=== PATIENT | female | born 1960 | race Two or more races ===

== ENCOUNTER 2021-03-19 15:17 | Inpatient (IN) | payer MEDICAID ==
[~2021-03-19] VITALS: Ht 162.6 cm; Wt 70.0 kg
[2021-03-19] MEDS ORDERED: ONDANSETRON HCL 4 MG/2 ML VIAL IV ONE (15:30)
[2021-03-19] MEDS ORDERED: MORPHINE SULFATE INJECTION 2 MG/2 ML SYRG IV ONE (15:30)
[2021-03-19 16:29] LABS: Basophils # (auto) 0 10 ^3/uL (0-0.2); Basophils % (auto) 0.5 % (0.0-2.0); Eosinophils # (auto) 0.1 10 ^3/uL (0-0.8); Eosinophils % (auto) 0.9 % (0.0-7.0); Hematocrit 45.2 % (36.0-46.0); Hemoglobin 15.4 g/dL (12.2-16.2); Lymphocytes # (auto) 1.6 10 ^3/uL (0.4-5.4); Lymphocytes % (auto) 21.3 % (10.0-50.0); Mean Corpuscular Hemoglobin 31.4 pg (28.0-32.0); Mean Corpuscular Hgb Conc. 34.2 g/dL (32.0-36.0); Mean Corpuscular Volume 91.9 fL (80.0-100.0); Monocytes # (auto) 0.5 10 ^3/uL (0-1.3); Monocytes % (auto) 6.1 % (0.0-12.0); Neutrophils # (auto) 5.4 10 ^3/uL (1.6-8.6); Neutrophils % (auto) 71.2 % (37.0-80.0); Nucleated Red Blood Cells % 0.1 %; Red Blood Cells 4.91 10^6/uL (4.0-5.20); Red Cell Distribution Width 13.8 % (11.8-14.3); White Blood Cell 7.6 10^3/uL (4.4-10.8)
[2021-03-19 16:56] LABS: Alanine Aminotransferase 59 U/L (13-56); Albumin 3.3 g/dL (3.4-5.0); Anion Gap 6 (5-15); Blood Urea Nitrogen 11 mg/dL (7-18); Calcium 8.4 mg/dL (8.5-10.1); Carbon Dioxide 24 mmol/L (21-32); Chloride 107 mmol/L (98-107); Glucose 250 mg/dL (74-106); Magnesium 2.3 mg/dL (1.6-2.6); Potassium 4.1 mmol/L (3.5-5.1); Sodium 137 mmol/L (136-145)
[2021-03-19 17:00] LABS: Alkaline Phosphatase 116 U/L (45-117); Aspartate Aminotransferase 33 U/L (15-37); BUN/Creatinine Ratio 19.3; Bilirubin, Total 0.5 mg/dL (0.2-1.0); GFR African American 139 mL/min; GFR Non-African American 115 mL/min; Total Protein 7.4 g/dL (6.4-8.2)
[2021-03-19] MEDS ORDERED: MORPHINE SULFATE INJECTION 2 MG/2 ML SYRG IV PRN ×3 (20:30→21:15)
[2021-03-19] MEDS ORDERED: ENOXAPARIN SOD 40 MG/0.4 ML SYRINGE SC ONE (20:30)
[2021-03-19] MEDS ORDERED: DEXTROSE (50%) 50ML SYRG IV PRN (20:30)
[2021-03-19] MEDS ORDERED: NITROGLYCERIN 0.4 MG SL TAB SL PRN ×2 (20:30→21:15)
[2021-03-19] MEDS ORDERED: SODIUM CHLORIDE 0.9% 1,000 ML IV SCH (21:15)
[2021-03-19] MEDS ORDERED: hydrALAZINE HCL 20 MG/ML VL IV PRN (21:15)
[2021-03-19] MEDS ORDERED: ATORVASTATIN 20 MG TAB PO ONE (21:15)
[2021-03-19] MEDS ORDERED: ONDANSETRON HCL 4 MG/2 ML VIAL IV PRN (21:15)
[2021-03-19] MEDS ORDERED: METOPROLOL SUCCINATE XL 50 MG TAB PO ONE (21:15)
[2021-03-19] MEDS ORDERED: LORazepam 0.5 MG TAB PO PRN (21:15)
[2021-03-19] MEDS ORDERED: FAMOTIDINE (10MG/ML) 2ML VL IV ONE (21:15)
[2021-03-19] MEDS ORDERED: ALUM & MAG HYDROX-SIMETH LIQ(MAALOX) 30 ML PO PRN (21:15)
[2021-03-19] MEDS ORDERED: DOCUSATE SOD 100 MG CAP PO PRN (21:15)
[2021-03-19] MEDS: ACCU-CHEK COMFORT CURVE STRIP VI SCH (22:00)
[2021-03-19] MEDS: InsuLIN REG 1unit/0.01ml Soln (100units/ml) SC SCH (22:00)
[2021-03-20] MEDS: ACCU-CHEK COMFORT CURVE STRIP VI SCH ×4 (07:11→23:43)
[2021-03-20] MEDS: InsuLIN REG 1unit/0.01ml Soln (100units/ml) SC SCH ×4 (07:12→23:42)
[2021-03-20] MEDS ORDERED: ENOXAPARIN SOD 40 MG/0.4 ML SYRINGE SC SCH (10:00)
[2021-03-20] MEDS: FAMOTIDINE (10MG/ML) 2ML VL IV SCH ×2 (11:33→23:40)
[2021-03-20] MEDS: ASPirin 81 mg TAB PO SCH (11:33)
[2021-03-20] MEDS: HYDROcodone-ACET 5/325MG TAB PO PRN (15:00)
[2021-03-20 23:38] VITALS: BP 128/63
[2021-03-20] MEDS: ATORVASTATIN 20 MG TAB PO SCH (23:40)
[2021-03-20] MEDS: METOPROLOL TARTRATE 25 MG TAB PO SCH (23:41)
[2021-03-20] MEDS: ENOXAPARIN SOD 40 MG/0.4 ML SYRINGE SC SCH (23:43)
[2021-03-21] MEDS: ACETAMINOPHEN 325 MG TAB PO PRN ×2 (01:15→17:04)
[2021-03-21] MEDS ORDERED: ATEN-60 PO (04:59)
[2021-03-21] MEDS ORDERED: GABA300C10 PO (04:59)
[2021-03-21] MEDS ORDERED: ENAL2.5T7 PO (04:59)
[2021-03-21] MEDS ORDERED: ASPI-543 PO (04:59)
[2021-03-21] MEDS ORDERED: LOSA-69 PO (04:59)
[2021-03-21 05:00] VITALS: BP 134/79
[2021-03-21] MEDS: ACCU-CHEK COMFORT CURVE STRIP VI SCH ×4 (06:24→22:51)
[2021-03-21] MEDS: InsuLIN REG 1unit/0.01ml Soln (100units/ml) SC SCH ×4 (06:30→22:52)
[2021-03-21 08:27] LABS: Anion Gap 3 (5-15); Blood Urea Nitrogen 14 mg/dL (7-18); Calcium 8.4 mg/dL (8.5-10.1); Carbon Dioxide 30 mmol/L (21-32); Chloride 106 mmol/L (98-107); Glucose 144 mg/dL (74-106); Potassium 3.9 mmol/L (3.5-5.1); Sodium 139 mmol/L (136-145)
[2021-03-21 08:33] LABS: Cholesterol 165 mg/dL (< 200); GFR African American 142 mL/min; GFR Non-African American 117 mL/min; HDL Cholesterol 40 mg/dL (40-59); LDL Cholesterol 111 mg/dL (< 100); Triglycerides 151 mg/dL (< 150)
[2021-03-21 09:00] VITALS: BP 129/60
[2021-03-21] MEDS: ASPirin 81 mg TAB PO SCH (09:28)
[2021-03-21] MEDS: FAMOTIDINE (10MG/ML) 2ML VL IV SCH ×2 (09:28→22:50)
[2021-03-21] MEDS: METOPROLOL TARTRATE 25 MG TAB PO SCH ×2 (09:29→22:00)
[2021-03-21 12:59] VITALS: BP 130/92
[2021-03-21 13:39] LABS: Amylase 63 U/L (25-115); Lipase 33 U/L (73-393)
[2021-03-21 17:38] VITALS: BP 144/83
[2021-03-21 22:00] VITALS: BP 133/64
[2021-03-21] MEDS: ATORVASTATIN 20 MG TAB PO SCH (22:50)
[2021-03-21] MEDS: ENOXAPARIN SOD 40 MG/0.4 ML SYRINGE SC SCH (22:51)
[2021-03-22 05:00] VITALS: BP 132/72
[2021-03-22] MEDS: ACCU-CHEK COMFORT CURVE STRIP VI SCH ×2 (07:14→11:30)
[2021-03-22] MEDS: InsuLIN REG 1unit/0.01ml Soln (100units/ml) SC SCH ×2 (07:15→11:30)
[2021-03-22] MEDS: HYDROcodone-ACET 5/325MG TAB PO PRN (07:21)
[2021-03-22 09:00] VITALS: BP 131/98
[2021-03-22] MEDS: ASPirin 81 mg TAB PO SCH (10:45)
[2021-03-22] MEDS: FAMOTIDINE (10MG/ML) 2ML VL IV SCH (10:45)
[2021-03-22] MEDS: METOPROLOL TARTRATE 25 MG TAB PO SCH (10:46)
[2021-03-22 11:31] VITALS: BP 131/98
[2021-03-22 12:45] VITALS: BP 121/69
== END 2021-03-22 13:30 | disposition home or self-care (01) | DRG 198 ==
LOC: ER 15:17 → EDBD 15:17 → TELE 20:19 → TELE-WESTW 23:44
PROVIDERS: ADMIT Hospitalist; ATTEND Internal Medicine
DX: R07.89 Other chest pain (principal); I25.10 Atherosclerotic heart disease of native coronary artery without angina pectoris; I50.33 Acute on chronic diastolic (congestive) heart failure; I11.0 Hypertensive heart disease with heart failure; E11.65 Type 2 diabetes mellitus with hyperglycemia; E66.3 Overweight; E78.5 Hyperlipidemia, unspecified; Z20.822 Contact with and (suspected) exposure to COVID-19; Z82.49 Family history of ischemic heart disease and other diseases of the circulatory system; Z88.8 Allergy status to other drugs, medicaments and biological substances; Z88.6 Allergy status to analgesic agent; Z90.710 Acquired absence of both cervix and uterus; Z68.26 Body mass index [BMI] 26.0-26.9, adult
CPT/HCPCS: 36415; 71045; 74176; 80048; 80053; 80061; 82150; 82962; 83036; 83690; 83735; 83880; 84484; 85025; 85379; 87040; 87426; 93005; 93306; 96372; 96374; 96375; G0378; J1815; J2405; J3490

== ENCOUNTER 2022-03-22 04:35 | Inpatient (IN) | payer MEDICAID ==
[~2022-03-22] VITALS: Ht 152.4 cm; Wt 65.9 kg
[~2022-03-22 04:35] MED LIST: ASPI-543 PO; ATEN-60 PO; ENAL2.5T7 PO; GABA300C10 PO; LOSA-69 PO
[2022-03-22] MEDS ORDERED: dilTIAZem 25 MG/5 ML VIAL IV ONE (04:45)
[2022-03-22] MEDS ORDERED: ASPirin 325 MG TAB PO ONE (05:15)
[2022-03-22] MEDS: dilTIAZem 125mg/125ml BAG KIT 100 ML IV SCH (05:25)
[2022-03-22 05:57] LABS: Basophils # (auto) 0 10 ^3/uL (0-0.2); Basophils % (auto) 0.3 % (0.0-2.0); Eosinophils # (auto) 0.1 10 ^3/uL (0-0.8); Eosinophils % (auto) 0.7 % (0.0-7.0); Hemoglobin 13.2 g/dL (12.2-16.2); Lymphocytes # (auto) 1.5 10 ^3/uL (0.4-5.4); Lymphocytes % (auto) 18.3 % (10.0-50.0); Mean Corpuscular Hemoglobin 30.8 pg (28.0-32.0); Mean Corpuscular Hgb Conc. 33.1 g/dL (32.0-36.0); Mean Corpuscular Volume 93.1 fL (80.0-100.0); Monocytes # (auto) 0.6 10 ^3/uL (0-1.3); Neutrophils # (auto) 6.1 10 ^3/uL (1.6-8.6); Neutrophils % (auto) 73.7 % (37.0-80.0); Red Blood Cells 4.29 10^6/uL (4.0-5.20); Red Cell Distribution Width 13.4 % (11.8-14.3); White Blood Cell 8.2 10^3/uL (4.4-10.8)
[2022-03-22 06:03] LABS: Calcium 7.9 mg/dL (8.5-10.1)
[2022-03-22 06:06] LABS: Albumin 3.3 g/dL (3.4-5.0); BUN/Creatinine Ratio 20.4; Total Protein 6.5 g/dL (6.4-8.2)
[2022-03-22 06:08] LABS: Bilirubin, Total 0.4 mg/dL (0.2-1.0)
[2022-03-22 06:11] LABS: Potassium 2.8 mmol/L (3.5-5.1)
[2022-03-22] MEDS ORDERED: POTASSIUM CHL 20 Meq TABLET PO ONE (06:45)
[2022-03-22 08:25] LABS: Urine Bacteria NONE SEEN /hpf (None Seen); Urine Blood Negative /uL (Negative); Urine Mucus FEW (None Seen); Urine Specific Gravity 1.034 (1.001-1.035); Urine WBC 10 /hpf (0 - 5)
[2022-03-22] MEDS: SODIUM CHLORIDE 0.9% 1,000 ML IV SCH ×2 (09:45→23:16)
[2022-03-22] MEDS ORDERED: NITROGLYCERIN 0.4 MG SL TAB SL PRN (09:45)
[2022-03-22] MEDS ORDERED: DEXTROSE (50%) 50ML SYRG IV PRN (09:45)
[2022-03-22] MEDS ORDERED: ENOXAPARIN SOD 60 MG/0.6 ML SYRINGE SC ONE (09:45)
[2022-03-22] MEDS ORDERED: POTASSIUM CHL 20MEQ/100ML 100 ML IV ONE (09:45)
[2022-03-22] MEDS ORDERED: MAGNESIUM SULFATE 1GM/100ML 100 ML IV ONE (09:45)
[2022-03-22] MEDS ORDERED: MORPHINE SULFATE INJ 2 MG/ml SYRG IV PRN (09:45)
[2022-03-22] MEDS ORDERED: SODIUM CHLORIDE 0.9% 1,000 ML IV ONE (09:45)
[2022-03-22] MEDS: ASPirin-EC 81 mg tab PO SCH (10:00)
[2022-03-22] MEDS ORDERED: hydrALAZINE HCL 20 MG/ML VL IV PRN (10:00)
[2022-03-22] MEDS ORDERED: cefTRIAXone 1GM/50ML D5W 50 ML IV ONE (10:15)
[2022-03-22 10:23] LABS: Cholesterol 172 mg/dL (< 200); HDL Cholesterol 44 mg/dL (40-59); LDL Cholesterol 113 mg/dL (< 100); Triglycerides 207 mg/dL (< 150)
[2022-03-22] MEDS: GABAPENTIN 300 MG CAP PO SCH ×2 (10:33→22:12)
[2022-03-22] MEDS: ATENOLOL 25 MG TAB PO SCH (10:34)
[2022-03-22] MEDS ORDERED: ACETAMINOPHEN 500 MG TAB PO ONE (11:00)
[2022-03-22 11:21] LABS: INR 1.01 (0.9-1.15)
[2022-03-22] MEDS: ACCU-CHEK COMFORT CURVE STRIP VI SCH ×3 (11:30→22:17)
[2022-03-22] MEDS: InsuLIN REG 1unit/0.01ml Soln (100units/ml) SC SCH ×3 (12:16→22:21)
[2022-03-22] MEDS ORDERED: PANTOPRAZOLE 40 MG/10 ML VIAL INJ IV ONE (13:30)
[2022-03-22 13:53] LABS: Alcohol, Urine < 3.0 mg/dL (0-10); Amphetamine Screen, Urine NEGATIVE (NEGATIVE); Barbiturate Scree,Urine NEGATIVE (NEGATIVE); Benzodiazephine Screen, Urine NEGATIVE (NEGATIVE); Cannabinoid Screen, Urine NEGATIVE (NEGATIVE); Cocaine Screen, Urine NEGATIVE (NEGATIVE); Opiate Scree,Urine POSITIVE (NEGATIVE); Phencyclidine Screen, Urine NEGATIVE (NEGATIVE)
[2022-03-22] MEDS ORDERED: RIVAROXABAN 20 MG TAB PO SCH (18:00)
[2022-03-22 18:47] LABS: BUN/Creatinine Ratio 17.7; Potassium 4.5 mmol/L (3.5-5.1)
[2022-03-23] MEDS: dilTIAZem 125mg/125ml BAG KIT 100 ML IV SCH (01:15)
[2022-03-23 05:50] VITALS: BP 130/77
[2022-03-23 06:00] VITALS: BP 130/77
[2022-03-23] MEDS: ACCU-CHEK COMFORT CURVE STRIP VI SCH ×2 (06:56→12:00)
[2022-03-23] MEDS: InsuLIN REG 1unit/0.01ml Soln (100units/ml) SC SCH ×2 (06:58→12:27)
[2022-03-23] MEDS ORDERED: METF-370 PO ×4 (07:11)
[2022-03-23] MEDS ORDERED: NITR0.4S29 SL ×2 (07:11)
[2022-03-23] MEDS ORDERED: DILT60TA PO ×3 (07:11→12:47)
[2022-03-23 08:58] LABS: Basophils # (auto) 0 10 ^3/uL (0-0.2); Basophils % (auto) 0.5 % (0.0-2.0); Eosinophils # (auto) 0.1 10 ^3/uL (0-0.8); Hematocrit 39.1 % (36.0-46.0); Hemoglobin 13.1 g/dL (12.2-16.2); Lymphocytes # (auto) 2.3 10 ^3/uL (0.4-5.4); Lymphocytes % (auto) 43.1 % (10.0-50.0); Mean Corpuscular Hemoglobin 31.7 pg (28.0-32.0); Mean Corpuscular Hgb Conc. 33.5 g/dL (32.0-36.0); Mean Corpuscular Volume 94.6 fL (80.0-100.0); Monocytes # (auto) 0.3 10 ^3/uL (0-1.3); Monocytes % (auto) 5.8 % (0.0-12.0); Neutrophils # (auto) 2.7 10 ^3/uL (1.6-8.6); Neutrophils % (auto) 49.6 % (37.0-80.0); Nucleated Red Blood Cells % 0.9 %; Red Blood Cells 4.14 10^6/uL (4.0-5.20); Red Cell Distribution Width 13.7 % (11.8-14.3); White Blood Cell 5.4 10^3/uL (4.4-10.8)
[2022-03-23 09:00] VITALS: BP 128/72
[2022-03-23] MEDS ORDERED: cefTRIAXone 1GM/50ML D5W 50 ML IV SCH (09:00)
[2022-03-23 09:02] LABS: Albumin 2.7 g/dL (3.4-5.0); Calcium 7.7 mg/dL (8.5-10.1); Potassium 3.9 mmol/L (3.5-5.1)
[2022-03-23 09:06] LABS: BUN/Creatinine Ratio 19.6; Bilirubin, Total 0.3 mg/dL (0.2-1.0); Total Protein 5.9 g/dL (6.4-8.2)
[2022-03-23] MEDS: SODIUM CHLORIDE 0.9% 1,000 ML IV SCH (09:14)
[2022-03-23] MEDS: GABAPENTIN 300 MG CAP PO SCH (09:15)
[2022-03-23] MEDS: ASPirin-EC 81 mg tab PO SCH (09:15)
[2022-03-23] MEDS: ATENOLOL 25 MG TAB PO SCH (09:16)
[2022-03-23] MEDS ORDERED: ENOXAPARIN SOD 40 MG/0.4 ML SYRINGE SC SCH (10:00)
[2022-03-23] MEDS ORDERED: APIX5TAB PO ×2 (12:47)
[2022-03-23] MEDS ORDERED: ATEN-60 PO ×2 (12:47)
[2022-03-23 13:00] VITALS: BP 140/77
== END 2022-03-23 16:18 | disposition home or self-care (01) | DRG 201 ==
LOC: EDBD 04:35 → ER 04:35 → TELE 09:43 → TELE-WESTW 03-23 05:41
PROVIDERS: ADMIT Registered Nurse; ATTEND Hospitalist
DX: I48.91 Unspecified atrial fibrillation (principal); E46 Unspecified protein-calorie malnutrition; E11.22 Type 2 diabetes mellitus with diabetic chronic kidney disease; E03.9 Hypothyroidism, unspecified; E11.65 Type 2 diabetes mellitus with hyperglycemia; E78.5 Hyperlipidemia, unspecified; E87.6 Hypokalemia; N39.0 Urinary tract infection, site not specified; Z20.822 Contact with and (suspected) exposure to COVID-19; I12.9 Hypertensive chronic kidney disease with stage 1 through stage 4 chronic kidney disease, or unspecified chronic kidney disease; I25.10 Atherosclerotic heart disease of native coronary artery without angina pectoris; N18.9 Chronic kidney disease, unspecified; Z82.49 Family history of ischemic heart disease and other diseases of the circulatory system; Z90.710 Acquired absence of both cervix and uterus; Z88.8 Allergy status to other drugs, medicaments and biological substances; Z68.28 Body mass index [BMI] 28.0-28.9, adult
CPT/HCPCS: 36415; 70450; 71045; 80048; 80053; 80061; 80307; 81001; 82962; 83036; 83690; 83735; 84443; 84484; 85025; 85610; 87081; 87086; 93005; 93306; 96365; 96375; 99291; C9113; G0378; J0696; J1815; J3480

== ENCOUNTER 2022-03-26 13:13 | Emergency (ER) | payer MEDICAID ==
[~2022-03-26] VITALS: Ht 152.4 cm; Wt 62.7 kg
[~2022-03-26 13:13] MED LIST changes: +APIX5TAB PO; +DILT60TA PO; +METF-370 PO; +NITR0.4S29 SL
[2022-03-26 14:30] LABS: Albumin 3.1 g/dL (3.4-5.0); Potassium 4.6 mmol/L (3.5-5.1)
[2022-03-26 14:38] LABS: Hematocrit 43.4 % (36.0-46.0); Hemoglobin 13.9 g/dL (12.2-16.2); Mean Corpuscular Hemoglobin 30.6 pg (28.0-32.0); Mean Corpuscular Hgb Conc. 32.1 g/dL (32.0-36.0); Mean Corpuscular Volume 95.2 fL (80.0-100.0); Red Blood Cells 4.56 10^6/uL (4.0-5.20); Red Cell Distribution Width 13.7 % (11.8-14.3); White Blood Cell 5.7 10^3/uL (4.4-10.8)
[2022-03-26 14:41] LABS: BUN/Creatinine Ratio 13.5; Bilirubin, Total 0.6 mg/dL (0.2-1.0); Total Protein 6.6 g/dL (6.4-8.2)
[2022-03-26 15:07] LABS: Basophils % (manual) 0 (0.0-2.0); Blast Cells 0; Eosinophils % (manual) 0 (0-7); Metamyelocytes % 0; Myelocytes % 0; Promyelocytes % 0; Reactive Lymphocytes 0
[2022-03-26 15:20] LABS: Urine Bacteria NONE SEEN /hpf (None Seen); Urine Blood Negative /uL (Negative); Urine Specific Gravity 1.005 (1.001-1.035); Urine WBC 1 /hpf (0 - 5)
[2022-03-26 16:45] LABS: Band Neutrophils % (manual) 1; Lymphocytes % (manual) 29 (10.0-50.0); Monocytes % (manual) 3 (0-12)
[2022-03-26 22:33] VITALS: BP 135/77
== END 2022-03-26 22:47 | disposition home or self-care (01) ==
LOC: EDBD 13:13 → EDSEX 13:13 → ER 13:13
DX: R07.89 Other chest pain (principal); E11.9 Type 2 diabetes mellitus without complications; I10 Essential (primary) hypertension; Z86.73 Personal history of transient ischemic attack (TIA), and cerebral infarction without residual deficits; Z90.89 Acquired absence of other organs; Z90.710 Acquired absence of both cervix and uterus; Z88.6 Allergy status to analgesic agent
CPT/HCPCS: 36415; 71045; 80053; 81001; 83735; 83880; 84484; 85007; 85027; 85379; 93005

== ENCOUNTER 2024-06-02 15:30 | Emergency (ER) | payer MEDICAID ==
[~2024-06-02] VITALS: Ht 152.4 cm; Wt 61.0 kg
[~2024-06-02 15:30] MED LIST changes: -ENAL2.5T7 PO; -GABA300C10 PO; -LOSA-69 PO
--- NOTE | 2024-06-02 16:55 | ED.PDOC ---
GI ASSESSMENT HPI Comments HPI: Poor Historian. 63-year-old female presents to the emergency department for evaluation of five day history of generalized abdominal pain with associated nausea but no vomiting. Denies any other acute symptoms. Vitals: Temp:97.9 F Heart rate: 71 RR: 20 BP: 151/84 02 sat: 97% on room air PMH: A. fib, CAD, Hyperlipidemia, Diabetes,Hypertension, pancreatitis PSH: Cardiac ablation, , Hysterectomy,Tonsillectomy social history: denies tobacco use, denies ETOH use, denies drug use medications: denies allergies: NKDA REVIEW OF SYSTEMS: CONSTITUTIONAL: Denies acute: fever, diaphoresis, chills, generalized weakness. HEAD: Denies acute: headache, photophobia Eyes: Denies acute: Double vision, vision loss, eye pain, eye discharge. EARS: Denies acute: tinnitus, hearing loss, ear discharge, ear pain, THROAT: Denies acute: sore throat, swelling, difficulty swallowing , pain with swallowing, change in voice. NECK: Denies acute: neck pain, neck swelling, stiff neck. HEART: Denies acute : chest pain, palpitations, LUNGS: Denies acute: SOB, wheezing, cough, hemoptysis ABDOMEN: Denies acute: Vomiting, diarrhea, melena , hematemesis, hematochezia SKIN: Denies acute: rash, redness, lesions, itchiness. EXTREMITIES: Denies acute: calf pain, numbness, tingling, weakness, denies pain in extremity. Denies acute: Low back pain. Neuro: Denies acute: focal neurological deficit, motor or sensory focal neurological deficit, tremors, seizure like activity, confusion, dizziness, change in mental status, loss of bowel or bladder function, cauda equina like symptoms. : Denies acute: dysuria, hematuria, flank pain, increase in urinary frequency. PSYCH: Denies acute: hallucination, suicidal ideation, homicidal ideation. FEMALE: Denies acute: abnormal vaginal bleeding, foul odor, unusual discharge. PHYSICAL EXAM: General: Mild acute distress, awake and alert. Head: normocephalic, atraumatic. Neck: supple, trachea is midline, no swelling. Throat: Normal phonation. Eyes:, no erythema, no purulent discharge, no proptosis, no icterus. Heart: regular rate, regular rhythm, no significant murmur appreciated. Lungs: no apparent respiratory distress, Able to speak in full sentences. No wheezing, no rhonchi, no crackles. No stridors Clear to auscultation bilaterally. Abdomen: Generalized tender to palpation, non distended, soft, no guarding, no rebound, + bowel sounds. Neuro: Awake, Alert, oriented to name, self, situation, follows commands GCS=15. Speech is normal. Skin: no petechia, no purpura, no cyanosis, non-pale, not jaundice. Lower extremities: --no - Pitting edema no deformity, no focal swelling, no calf TTP. Makes eye contact. moves all four extremities. Face: no apparent facial droop. Chief Complaint: abdominal pain Time Seen by MD: 15:33 Primary Care Provider: UNKNOWN Reviewed Notes: Nurses Notes, Allergies Allergies: Coded Allergies: Ibuprofen (Verified Allergy, Unknown, 03/19/21) Home Meds Active Scripts Apixaban Base (ELIQUIS) 5 Mg Tab, 5 MG PO BID, #90 TAB Prov:CHRISTINE MENA MD 03/23/22 Diltiazem Hcl (Diltiazem Hcl) 60 Mg Tab, 60 MG PO DAILY for 30 Days, #30 MG Prov:CHRISTINE MENA MD 03/23/22 Atenolol (Atenolol) 25 Mg Tab, 25 MG PO DAILY for 30 Days, #30 MG Prov:CHRISTINE MENA MD 03/23/22 Reported Medications Nitroglycerin (NTROSTAT SUBLINGUAL) 0.4 Mg Sl, 0.4 MG SL PRN, TAB *MAY REPEAT EVERY 5 MINUTES X 3 TOTAL IF NO RELIEF, INITIATE ANALGESIC THERAPY. NOTIFY PHYSICIAN *Do not crush. 03/23/22 Metformin Hydrochloride (Metformin Hcl) 500 Mg Tab, 1000 MG PO QPM for 30 Days, MG 03/23/22 Metformin Hydrochloride (Metformin Hcl) 500 Mg Tab, 1000 MG PO QAM for 30 Days, MG 03/23/22 Aspirin (Aspir-Low) 81 Mg Tab, 81 MG PO DAILY for 30 Days, MG 03/21/21 Information Source: Patient Mode of Arrival: Ambulatory Brought in by: self Past Medical History PAST MEDICAL HISTORY: AFIB, CAD, DM, HTN Surgical History: , Hysterectomy, Tonsillectomy APRON MAN History: No Pertinent APRON MAN History Family History Family History: Family hx of heart markel, Family hx of HTN Social History Smoker: Non-Smoker Alcohol: Denies ETOH Use Drugs: Denies Drug Use Lives In: Home Was a procedure done? Was a procedure done?: No GI differential Dx Differential Diagnosis: Other (DDX include Diverticulitis, colitis, gastroenteritis, acute abdomen, SBO, enteritis, constipation, volvulus, appendicitis, Gallbladder disease, choledocolithiasis, ascending cholangitis, pancreatitis, intraAbdominal mass/neoplasm, hepatitis, UTI, pylonephritis, kidney stone, aneurysm, dissection, Inflammatory bowel disease, gastroparesis, ischemic bowel, ovarian torsion, ovarian cyst/mass, tubo-ovarian abscess, PID, STD.) X-Ray, Labs, Meds, VS Vital Signs Date Time Temp Pulse Resp B/P (MAP) Pulse Ox O2 Delivery O2 Flow Rate FiO2 06/02/24 19:40 68 17 96 Room Air* 0 21 06/02/24 19:40 98.3 68 17 152/83 (106) 98.3 06/02/24 17:09 66 06/02/24 17:07 97.9 71 20 151/84 (106) 97 Lab Test 06/02/24 17:02 06/02/24 16:55 Range/Units White Blood Count 6.9 4.4-10.8 10^3/uL Red Blood Count 5.16 4.0-5.20 10^6/uL Hemoglobin 15.5 12.2-16.2 g/dL Hematocrit 46.9 H 36.0-46.0 % Mean Corpuscular Volume 90.9 80.0-100.0 fL Mean Corpuscular Hemoglobin 30.0 28.0-32.0 pg Mean Corpuscular Hemoglobin Concent 33.1 32.0-36.0 g/dL Red Cell Distribution Width 13.7 11.8-14.3 % Platelet Count 272 140-450 10^3/uL Mean Platelet Volume 9.2 6.9-10.8 fL Neutrophils (%) (Auto) 69.9 37.0-80.0 % Lymphocytes (%) (Auto) 23.3 10.0-50.0 % Monocytes (%) (Auto) 5.2 0.0-12.0 % Eosinophils (%) (Auto) 1.2 0.0-7.0 % Basophils (%) (Auto) 0.4 0.0-2.0 % Neutrophils # (Auto) 4.8 1.6-8.6 10 ^3/uL Lymphocytes # (Auto) 1.6 0.4-5.4 10 ^3/uL Monocytes # (Auto) 0.4 0-1.3 10 ^3/uL Eosinophils # (Auto) 0.1 0-0.8 10 ^3/uL Basophils # (Auto) 0 0-0.2 10 ^3/uL Nucleated Red Blood Cells 0.1 % Sodium Level 140 136-145 mmol/L Potassium Level 4.2 3.5-5.1 mmol/L Chloride Level 103 98-107 mmol/L Carbon Dioxide Level 31 20-31 mmol/L Anion Gap 6 5-15 Blood Urea Nitrogen 11 9-23 mg/dL Creatinine 0.63 0.550-1.02 mg/dL Glomerular Filtration Rate Calc 100 >90 mL/min BUN/Creatinine Ratio 17.5 10.0-20.0 Serum Glucose 102 74-106 mg/dL Lactic Acid Level 0.6 0.4-2.0 mmol/L Calcium Level 9.9 8.7-10.4 mg/dL Total Bilirubin 0.7 0.2-1.0 mg/dL Aspartate Amino Transferase (AST) 17 13-40 U/L Alanine Aminotransferase (ALT) 25 7-40 U/L Alkaline Phosphatase 110 46-116 U/L Troponin I High Sensitivity < 3 L </=34 ng/L Total Protein 7.4 5.7-8.2 g/dL Albumin 4.4 3.2-4.8 g/dL Lipase 21 12-53 U/L Urine Color Yellow Yellow Urine Clarity Clear Clear Urine pH 6.0 5.0-9.0 Urine Specific [place] 1.040 H 1.001-1.035 Urine Protein Negative Negative Urine Ketones Trace Negative Urine Blood Negative Negative /uL Urine Nitrite Negative Negative Urine Bilirubin Negative Negative Urine Urobilinogen Normal Negative mg/dL Urine Leukocyte Esterase Negative Negative /uL Urine RBC 1 0 - 4 /hpf Urine WBC 1 0 - 5 /hpf Urine Squamous Epithelial Cells Few <5 /hpf Urine Bacteria None seen None Seen /hpf Urine Glucose 4+ H Normal mg/dL [facility] [address] [facility] [address] Ph: [phone] DIAGNOSTIC IMAGING Diagnostic Imaging Report : [id number] Signed PATIENT: JAMIE BAIN ACCT: [id number] UNIT: [id number] : 1960 LOC: ER ROOM / BED: / AGE / SEX: 63 / F ADM STATUS: REG ER SERVICE [id number] ORDERING PHYSICIAN: ZULEMA SERNA DO PROCEDURE(s): ABPL - CT AB PEL WO CON-NO ORAL OR IV REASON: abd pain ORDER NUMBER(s): [id number], ACCESSION NUMBER(s): [id number] CT SCAN ABDOMEN AND PELVIS WITHOUT CONTRAST CLINICAL HISTORY: abd pain TECHNIQUE: Helical axial images are obtained from the lung bases through the pelvis without oral contrast. No intravenous contrast was administered. Coronal and sagittal reformatted images were generated from thin section reconstructions. One or more of the following radiation dose reduction techniques were used for this examination: automated exposure control, adjustment of the mA and/or kV according to patient size, use of iterative reconstruction technique. COMPARISON: CT ABD PELVIS WO CONTRAST on DOS: 03/21/21 FINDINGS: LOWER THORAX: Scattered mild atelectasis/ scarring in the imaged lung bases. ABDOMEN AND PELVIS: Evaluation of visceral and vascular structures is limited due to lack of contrast administration. As visualized, the unenhanced liver, spleen and adrenals appear grossly u nremarkable. Fatty atrophic changes of the pancreas. Mildly distended gallbladder. No sizable, radiopaque cholelithiasis identified. No hydroureteronephrosis. Small exophytic hypodensity arising from the left renal lower pole is incompletely characterized. No evidence of abdominal aortic aneurysm. Scattered aortoiliac atherosclerotic calcifications. No evidence of bowel obstruction. Normal caliber appendix. No free intraperitoneal air or fluid identified. Haziness of the central mesenteric fat with associated borderline enlarged mesenteric lymph nodes. No sizable bladder calculus. No destructive osseous lesions identified. Degenerative changes at L5-S1. IMPRESSION: No bowel obstruction, free intraperitoneal air/ fluid or sizable inflammatory collections identified on this noncontrast examination. Haziness of the central mesenteric fat with associated borderline enlarged m esenteric lymph nodes. This is relatively nonspecific but can be seen with mesenteric panniculitis. Other ancillary findings as above. ATED BY: SHON LAW MD DICTATED DATE/TIME: 06/02/241805 SIGNED BY: SHON LAW MD SIGNED DATE/TIME: 06/02/241805 CC: Time of 1ST Reevaluation: 19:30 Reevaluation 1ST: Unchanged Patient Education/Counseling: Diagnosis, Treatment Family Education/Counseling: No Family Present Comments Patient presented with the above HPI.--abdominal pain---workup was initiated. patient was found with the above mentioned diagnosis. Patient was given: Zofran and pain medication Patient ED course and VS have been stabilized. Patient has been reassessed in the ED and remained in a stable condition. Pertinent incidental findings were discussed with the patient and/or family. Patient/family voices understanding and is agreeable with plan. Patient has been observed in the ED adequate length of time to insure improvement/stability. patient was discharged home in a stable condition. All the reports of any imaging studies that were ordered by myself were reviewed by myself. Against going to tie the artery Departure 1 Departure Time of Disposition: 19:21 Impression: Primary Impression: Mesenteric panniculitis Additional Impression: Abdominal pain Disposition: 01 HOME / SELF CARE / HOMELESS Condition: Stable Additional Instructions: Additional discharge instructions: You MUST follow-up with your primary care/family doctor in 1 to 2 days. If you are unable to see your primary care/family doctor, please return to our emergency room for re-assessment and re-evaluation in 1 to 2 days. Return to the emergency room here in our facility or to the nearest ER [facility] if your symptoms change or worsen. CONSULTATIONS: you MUST Follow-up for consultation as soon as possible with: -gastroenterology in 1-2 days. Please call for appointment. You MUST call the consultants office yourself to make an appointment. You may need to arrange that through your insurance and/or your primary/family doctor. If you are unable to see the regulatory consultant in 1 to 2 days, you must return to our emergency room (or any other ER of your choice) for re-assessment and re- evaluation. Adequate fluid hydration. Avoid fatty greasy spicy food. Avoid caffeinated products. Avoid NSAIDs. Below is a copy of your radiological report for follow up: [address] [address] Ph: [phone] DIAGNOSTIC IMAGING Diagnostic Imaging Report : [id number] Signed PATIENT: JAMIE BAIN ACCT: [id number] UNIT: [id number] : 1960 LOC: ER ROOM / BED: / AGE / SEX: 63 / F ADM STATUS: REG ER SERVICE [id number] ORDERING PHYSICIAN: ZULEMA SERNA DO PROCEDURE(s): ABPL - CT AB PEL WO CON-NO ORAL OR IV REASON: abd pain ORDER NUMBER(s): [id number], ACCESSION NUMBER(s): [id number] CT SCAN ABDOMEN AND PELVIS WITHOUT CONTRAST CLINICAL HISTORY: abd pain TECHNIQUE: Helical axial images are obtained from the lung bases through the pelvis without oral contrast. No intravenous contrast was administered. Coronal and sagittal reformatted images were generated from thin section reconstructions. One or more of the following radiation dose reduction techniques were used for this examination: automated exposure control, adj ustment of the mA and/or kV according to patient size, use of iterative reconstruction technique. COMPARISON: CT ABD PELVIS WO CONTRAST on DOS: 03/21/21 FINDINGS: LOWER THORAX: Scattered mild atelectasis/ scarring in the imaged lung bases. ABDOMEN AND PELVIS: Evaluation of visceral and vascular structures is limited due to lack of contrast administration. As visualized, the unenhanced liver, spleen and adrenals appear grossly unremarkable. Fatty atrophic changes of the pancreas. Mildly distended gall bladder. No sizable, radiopaque cholelithiasis identified. No hydroureteronephrosis. Small exophytic hypodensity arising from the left renal lower pole is incompletely characterized. No evidence of abdominal aortic aneurysm. Scattered aortoiliac atherosclerotic calcifications. No evidence of bowel obstruction. Normal caliber appendix. No free intraperitoneal air or fluid identified. Haziness of the central mesenteric fat with associated borderline enlarged mesenteric lymph nodes. No sizable bladder calculus. No destructive osseous lesions identified. Degenerative changes at L5-S1. IMPRESSION: No bowel obstruction, free intraperitoneal air/ fluid or sizable inflammatory collections identified on this noncontrast examination. Haziness of the central mesenteric fat with associated borderline enlarged mesenteric lymph nodes. This is relatively nonspecific but can be seen with mesenteric panniculitis. Other ancillary findings as above. ATED BY: SHON LAW MD DICTATED DATE/TIME: 06/02/241805 SIGNED BY: SHON LAW MD SIGNED DATE/TIME: 06/02/241805 CC: Discharged With: Self Critical Care Note Critical Care Time?: No I personally scribed for ZULEMA SERNA DO ([email or web address]) on 06/02/24 at 16:55. Electronically submitted by Brenda Rojas ([facility]). I personally scribed for ZULEMA SERNA DO ([email or web address]) on 06/02/24 at 17:16. Electronically submitted by Brenda Rojas ([facility]). I personally scribed for ZULEMA SERNA DO ([email or web address]) on 06/02/24 at 18:47. Electronically submitted by Brenda Rojas ([facility]). I personally scribed for ZULEMA SERNA DO ([email or web address]) on 06/02/24 at 19:36. Electronically submitted by Brenda Rojas ([facility]). ZULEMA SERNA DO Jun 02, 2024 16:55
--- NOTE | 2024-06-02 17:11 | ECG ---
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
[2024-06-02 17:26] LABS: Urine Bacteria None Seen /hpf (None Seen)
[2024-06-02 17:32] LABS: Basophils # (auto) 0 10 ^3/uL (0-0.2); Basophils % (auto) 0.4 % (0.0-2.0); Eosinophils # (auto) 0.1 10 ^3/uL (0-0.8); Eosinophils % (auto) 1.2 % (0.0-7.0); Hematocrit 46.9 % (36.0-46.0); Hemoglobin 15.5 g/dL (12.2-16.2); Lymphocytes # (auto) 1.6 10 ^3/uL (0.4-5.4); Lymphocytes % (auto) 23.3 % (10.0-50.0); Mean Corpuscular Hgb Conc. 33.1 g/dL (32.0-36.0); Mean Corpuscular Volume 90.9 fL (80.0-100.0); Monocytes # (auto) 0.4 10 ^3/uL (0-1.3); Monocytes % (auto) 5.2 % (0.0-12.0); Neutrophils # (auto) 4.8 10 ^3/uL (1.6-8.6); Neutrophils % (auto) 69.9 % (37.0-80.0); Nucleated Red Blood Cells % 0.1 %; Platelet Count (auto) 272 10^3/uL (140-450); Red Blood Cells 5.16 10^6/uL (4.0-5.20); Red Cell Distribution Width 13.7 % (11.8-14.3); White Blood Cell 6.9 10^3/uL (4.4-10.8)
[2024-06-02 17:59] LABS: Alanine Aminotransferase 25 U/L (7-40); Alkaline Phosphatase 110 U/L (46-116); Anion Gap 6 (5-15); Aspartate Aminotransferase 17 U/L (13-40); BUN/Creatinine Ratio 17.5 (10.0-20.0); Blood Urea Nitrogen 11 mg/dL (9-23); Calcium 9.9 mg/dL (8.7-10.4); Carbon Dioxide 31 mmol/L (20-31); Chloride 103 mmol/L (98-107); Glucose 102 mg/dL (74-106); Potassium 4.2 mmol/L (3.5-5.1); Sodium 140 mmol/L (136-145)
[2024-06-02 18:00] LABS: Albumin 4.4 g/dL (3.2-4.8); Bilirubin, Total 0.7 mg/dL (0.2-1.0); Total Protein 7.4 g/dL (5.7-8.2)
[2024-06-02 18:08] LABS: Urine Blood Negative /uL (Negative); Urine Clarity Clear (Clear); Urine Color Yellow (Yellow); Urine Protein, UAD Negative (Negative); Urine Urobilinogen Normal (Negative); Urine WBC 1 /hpf (0 - 5)
--- NOTE | 2024-06-02 18:08 | DVH ---
CT SCAN ABDOMEN AND PELVIS WITHOUT CONTRAST CLINICAL HISTORY: abd pain TECHNIQUE: Helical axial images are obtained from the lung bases through the pelvis without oral cont rast. No intravenous contrast was administered. Coronal and sagittal reformatted images were generate d from thin section reconstructions. One or more of the following radiation dose reduction techniques were used for this examination: automated exposure control, adjustment of the mA and/or kV according to patient size, use of iterative reconstruction technique. COMPARISON: CT ABD PELVIS WO CONTRAST on DOS: 03/21/21 FINDINGS: LOWER THORAX: Scattered mild atelectasis/ scarring in the imaged lung bases. ABDOMEN AND PELVIS: Evaluation of visceral and vascular structures is limited due to lack of contrast administration. As visualized, the unenhanced liver, spleen and adrenals appear grossly unremarkable. Fatty atrophic changes of the pancreas. Mildly distended gallbladder. No sizable, radiopaque cholelithiasis identifi ed. No hydroureteronephrosis. Small exophytic hypodensity arising from the left renal lower pole is incom pletely characterized. No evidence of abdominal aortic aneurysm. Scattered aortoiliac atherosclerotic calcifications. No evidence of bowel obstruction. Normal caliber appendix. No free intraperitoneal air or fluid ident ified. Haziness of the central mesenteric fat with associated borderline enlarged mesenteric lymph n odes. No sizable bladder calculus. No destructive osseous lesions identified. Degenerative changes at L5-S1. IMPRESSION: No bowel obstruction, free intraperitoneal air/ fluid or sizable inflammatory collections identified on this noncontrast examination. Haziness of the central mesenteric fat with associated borderline enlarged mesenteric lymph nodes. Th is is relatively nonspecific but can be seen with mesenteric panniculitis. Other ancillary findings as above.
[2024-06-02 18:30] LABS: Lipase 21 U/L (12-53)
[2024-06-02 19:40] VITALS: BP 152/83; PULSE 68; RESP 17; TEMP 98.3; O2SAT 96
[2024-06-02] MEDS: HYDROcodone-ACET 5/325MG TAB PO ONE (19:52)
[2024-06-02] MEDS: ONDANSETRON ODT 4 MG TAB PO ONE (19:53)
[2024-06-02] MEDS: fentaNYL CITRATE 100 MCG/2 ML VL IV ONE (20:15)
== END 2024-06-02 20:16 | disposition home or self-care (01) ==
LOC: ER 15:35
DX: K65.4 Sclerosing mesenteritis (principal); R10.84 Generalized abdominal pain; E78.5 Hyperlipidemia, unspecified; E11.9 Type 2 diabetes mellitus without complications; I10 Essential (primary) hypertension; Z98.890 Other specified postprocedural states; Z90.710 Acquired absence of both cervix and uterus; Z88.8 Allergy status to other drugs, medicaments and biological substances
CPT/HCPCS: 36415; 74176; 80053; 81001; 83605; 83690; 84484; 85025; 93005

== ENCOUNTER 2025-01-12 13:35 | Inpatient (IN) | payer MEDICAID ==
[~2025-01-12] VITALS: Ht 167.6 cm; Wt 72.0 kg
[~2025-01-12 13:35] MED LIST changes: +ATEN50TA PO; +DILT120C41 PO; +OMEP1CAP70 PO; +TIRZ5INJ SC
--- NOTE | 2025-01-12 13:49 | ED.PDOC ---
History of Present Illness HPI Comments 64 year old female with a Hx of DM, HTN, and a leaky mitral valve was BIBA for the c/c of 810 Left sided Chest pain. Pt states that her CP has been onset for the past 1x day and worsens with exertion. Pt also notes of having Generalized Weakness at this time. No other associated symptoms, modifiers, recent injuries or sick contacts present at this time. Time Seen by MD: 13:46 Primary Care Provider: UNKNOWN Reviewed Notes: Nurses Notes, Human Development Professor Notes, Medications, Allergies Allergies: Coded Allergies: Ibuprofen (Verified Allergy, Unknown, 03/19/21) Home Meds Active Scripts Apixaban Base (ELIQUIS) 5 Mg Tab, 5 MG PO BID, #90 TAB Prov:CHRISTINE MENA MD 03/23/22 Diltiazem Hcl (Diltiazem Hcl) 60 Mg Tab, 60 MG PO DAILY for 30 Days, #30 MG Prov:CHRISTINE MENA MD 03/23/22 Atenolol (Atenolol) 25 Mg Tab, 25 MG PO DAILY for 30 Days, #30 MG Prov:CHRISTINE MENA MD 03/23/22 Reported Medications Nitroglycerin (NTROSTAT SUBLINGUAL) 0.4 Mg Sl, 0.4 MG SL PRN, TAB *MAY REPEAT EVERY 5 MINUTES X 3 TOTAL IF NO RELIEF, INITIATE ANALGESIC THERAPY. NOTIFY PHYSICIAN *Do not crush. 03/23/22 Metformin Hydrochloride (Metformin Hcl) 500 Mg Tab, 1000 MG PO QPM for 30 Days, MG 03/23/22 Metformin Hydrochloride (Metformin Hcl) 500 Mg Tab, 1000 MG PO QAM for 30 Days, MG 03/23/22 Aspirin (Aspir-Low) 81 Mg Tab, 81 MG PO DAILY for 30 Days, MG 03/21/21 Information Source: Patient, Emergency Med Personnel Mode of Arrival: EMS Severity: Moderate Timing: Days Duration: Since onset, Days Prehospital treatment: 12 Lead EKG Past Medical History PAST MEDICAL HISTORY: AFIB, CAD, DM, HTN Surgical History: , Hysterectomy, Tonsillectomy BRIM FLEXER History: No Pertinent BRIM FLEXER History Family History Family History: Family hx of heart markel, Family hx of HTN Social History Smoker: Non-Smoker Alcohol: Denies ETOH Use Drugs: Denies Drug Use Lives In: Home Constitutional: denies: chills, diaphoresis, fatigue, fever, malaise, sweats, weakness, others EENTM: denies: blurred vision, double vision, ear bleeding, ear discharge, ear drainage, ear pain, ear ringing, eye pain, eye redness, hearing loss, mouth pain, mouth swelling, nasal discharge, nose bleeding, nose congestion, nose pain, photophobia, tearing, throat pain, throat swelling, voice changes, others Respiratory: denies: cough, hemoptysis, orthopnea, SOB at rest, shortness of breath, SOB with excertion, stridor, wheezing, others Cardiovascular: reports: chest pain; denies: dizzy spells, diaphoresis, Dyspnea on exertion, edema, irregular heart beat, left arm pain, lightheadedness, palpitations, PND, syncope, others Gastrointestinal: denies: abdomen distended, abdominal pain, blood streaked bowels, constipated, diarrhea, dysphagia, difficulty swallowing, hematemesis, melena, nausea, poor appetite, poor fluid intake, rectal bleeding, rectal pain, vomiting, others Genitourinary: denies: abnormal vagina bleeding, burning, dyspareunia, dysuria, flank pain, frequency, hematuria, incontinence, pain, , vagina discharge, urgency, others Neurological: denies: dizziness, fainting, headache, left sided numbness, left sided weakness, numbness, paresthesia, pre-existing deficit, right sided numbness, right sided weakness, seizure, speech problems, tingling, tremors, weakness, others Musculoskeletal: denies: back pain, gout, joint pain, joint swelling, muscle pain, muscle stiffness, neck pain, others Integumetry: denies: bruises, change in color, change in hair/nails, dryness, laceration, lesions, lumps, rash, wounds, others Allergic/Immunocompromised: denies: Difficulty Healing, Frequent Infections, Hives, Itching, others Hematologic/Lymphatic: denies: anemia, blood clots, easy bleeding, easy bruising, swollen glands, others Endocrine: denies: excessive hunger, excessive sweating, excessive thirst, excessive urination, flushing, intolerance to cold, intolerance to heat, unexplained weight gain, unexplained weight loss, others Psychiatric: denies: anxiety, bipolar disorder, depression, hopeless, panic disorder, schizophrenia, sleepless, suicidal, others All Other Systems: Reviewed and Negative Physical Exam General Appearance: Mild Distress, Normal HEENT: Normal ENT Inspection, Pharynx Normal, TMs Normal Neck: Full Range of Motion, Non-Tender, Normal Respiratory: Chest Non-Tender, Lungs Clear, No Respiratory Distress, Normal Breath Sounds Cardiovascular: No Edema, No JVD, No Murmur, Normal Peripheral Pulses, Regular Rate/Rhythm, Tachycardia Breast Exam: Deferred Gastrointestinal: Non Tender, No Pulsatile Mass, Soft Genitalia: Deferred Pelvic: Deferred Rectal: Deferred Extremities: No calf tenderness, Normal range of motion, Non-tender, No pedal edema Musculoskeletal : Apperance: Normal Neurologic: Alert, No Motor Deficits, Normal Mood Cerebellar Function: Normal Reflexes: Normal Skin: Dry, Normal Color, Warm Lymphatic: No Adenopathy Was a procedure done? Was a procedure done?: No Differential Dx Considerations may include: ACS, CVA, pneumonia, UTI, viral syndrome X-Ray, Labs, Meds, VS Vital Signs Date Time Temp Pulse Resp B/P (MAP) Pulse Ox O2 Delivery O2 Flow Rate FiO2 01/12/25 16:42 97.6 108 20 118/80 (93) 99 97.6 01/12/25 16:00 97.6 110 20 121/82 (95) 98 97.6 01/12/25 13:41 98.5 132 16 124/74 (91) 98 98.5 01/12/25 13:41 109 Lab Test 01/12/25 17:08 01/12/25 17:01 01/12/25 14:54 01/12/25 13:45 Range/Units Urine Color Yellow Yellow Urine Clarity Turbid H Clear Urine pH 6.0 5.0-9.0 Urine Specific [place] 1.020 1.001-1.035 Urine Protein Trace H Negative Urine Ketones 3+ H Negative Urine Blood Negative Negative /uL Urine Nitrite 2+ H Negative Urine Bilirubin Negative Negative Urine Urobilinogen Normal Negative mg/dL Urine Leukocyte Esterase 2+ Negative /uL Urine RBC <1 0 - 4 /hpf Urine Microscopic WBC 33 H 0-5 /HPF Urine Squamous Epithelial Cells Few <5 /hpf Urine Bacteria Few H None Seen /hpf Urine Hyaline Casts Few 0 - 2 /lpf Urine Mucus Few None Seen Urine Yeast (Budding) Occasional None Seen /hpf Urine Glucose Normal Normal mg/dL Troponin I High Sensitivity Pending < 3 L < 3 L </=34 ng/L White Blood Count 9.8 4.4-10.8 10^3/uL Red Blood Count 5.31 H 4.0-5.20 10^6/uL Hemoglobin 15.8 12.2-16.2 g/dL Hematocrit 46.8 H 36.0-46.0 % Mean Corpuscular Volume 88.2 80.0-100.0 fL Mean Corpuscular Hemoglobin 29.7 28.0-32.0 pg Mean Corpuscular Hemoglobin Concent 33.7 32.0-36.0 g/dL Red Cell Distribution Width 14.5 H 11.8-14.3 % Platelet Count 252 140-450 10^3/uL Mean Platelet Volume 8.5 6.9-10.8 fL Neutrophils (%) (Auto) 86.7 H 37.0-80.0 % Lymphocytes (%) (Auto) 9.2 L 10.0-50.0 % Monocytes (%) (Auto) 3.2 0.0-12.0 % Eosinophils (%) (Auto) 0.5 0.0-7.0 % Basophils (%) (Auto) 0.4 0.0-2.0 % Neutrophils # (Auto) 8.5 1.6-8.6 10 ^3/uL Lymphocytes # (Auto) 0.9 0.4-5.4 10 ^3/uL Monocytes # (Auto) 0.3 0-1.3 10 ^3/uL Eosinophils # (Auto) 0.1 0-0.8 10 ^3/uL Basophils # (Auto) 0 0-0.2 10 ^3/uL Nucleated Red Blood Cells 0.1 % Sodium Level 140 136-145 mmol/L Potassium Level 3.6 3.5-5.1 mmol/L Chloride Level 104 98-107 mmol/L Carbon Dioxide Level 22 20-31 mmol/L Anion Gap 14 5-15 Blood Urea Nitrogen 10 9-23 mg/dL Creatinine 0.56 0.550-1.02 mg/dL Glomerular Filtration Rate Calc 102 >90 mL/min BUN/Creatinine Ratio 17.9 10.0-20.0 Serum Glucose 143 H 74-106 mg/dL Calcium Level 9.8 8.7-10.4 mg/dL Time of 1ST Reevaluation: 14:16 Reevaluation 1ST: Unchanged Patient Education/Counseling: Diagnosis, Treatment Family Education/Counseling: No Family Present SEPSIS Sepsis Screen Orders/Vitals/Labs Physician Orders Electrocardigram (01/12/25 13:38) Electrocardigram (01/12/25 14:38) Electrocardigram (01/12/25 16:38) Troponin-I Hs (01/12/25 16:38) Chest Portable (01/12/25 13:43) Ceftriaxone 1gm/50ml D5w (Rocephin) (01/12/25 17:30) Vital Signs Date Time Temp Pulse Resp B/P (MAP) Pulse Ox O2 Delivery O2 Flow Rate FiO2 01/12/25 16:42 97.6 108 20 118/80 (93) 99 97.6 01/12/25 16:00 97.6 110 20 121/82 (95) 98 97.6 01/12/25 13:41 98.5 132 16 124/74 (91) 98 98.5 01/12/25 13:41 109 Laboratory Tests Test 01/12/25 13:45 White Blood Count 9.8 10^3/uL (4.4-10.8) Departure 1 Departure Time of Disposition: 17:19 (Patient presented with chest pain that was concerning for possible STEMI, ACS, PE, Pneumonia, Muscle Strain, COPD, Dissection. Data: 1. I ordered and reviewed the result of at least 3 labs including a CBC, BMP, and Troponin. 2. I independently interpreted the following tests: EKG which shows sinus arrhythmia and Chest X-ray which shows benign chest.Risk:This patient has a high risk of morbidity due to further diagnostic testing or treatment and may suffer from an acute cardiac or respiratory disorder. Workup reveals concern for ACS and acute cystitis and patient should be admitted for further workup and possible expert consultation. ) Impression: Primary Impression: Acute chest pain Additional Impression: Complicated UTI (urinary tract infection) Disposition: 09 ADMITTED INPATIENT Admit to: Med Surg Condition: Guarded Critical Care Note Critical Care Time?: Yes Critical care comment: Acute chest pain Authorized and Performed by: Asif Mayo MD Total critical care time: Approximately 37 minutes Due to a high probability of clinically significant, life threatening deterioration, the patient required my highest level of preparedness to intervene emergently and I personally spent this critical care time directly and personally managing the patient. This critical care time included obtaining a history; examining the patient; pulse oximetry; ordering and review of studies; arranging urgent treatment with development of a management plan; evaluation of patient's response to treatment; frequent reassessment; and, discussions with other providers. This critical care time was performed to assess and manage the high probability of imminent, life-threatening deterioration that could result in multi-organ failure. It was exclusive of separately billable procedures and treating other patients and teaching time. Please see my other sections and the rest of the note for further information on patient assessment and treatment. Stability Stability form required: No Heart Score Heart Score: Heart Score Response (Comments) Value History N/A 0 EKG N/A 0 Age N/A 0 Risk Factors N/A 0 Troponin N/A 0 Total 0 I personally scribed for ASIF MAYO MD ([email or web address]) on 01/12/25 at 13:49. Electronically submitted by Deion Griggs ([email or web address]). ASIF MAYO MD Jan 12, 2025 13:49
[2025-01-12 13:56] LABS: Basophils # (auto) 0 10 ^3/uL (0-0.2); Basophils % (auto) 0.4 % (0.0-2.0); Eosinophils # (auto) 0.1 10 ^3/uL (0-0.8); Eosinophils % (auto) 0.5 % (0.0-7.0); Hematocrit 46.8 % (36.0-46.0); Hemoglobin 15.8 g/dL (12.2-16.2); Lymphocytes # (auto) 0.9 10 ^3/uL (0.4-5.4); Lymphocytes % (auto) 9.2 % (10.0-50.0); Mean Corpuscular Hemoglobin 29.7 pg (28.0-32.0); Mean Corpuscular Hgb Conc. 33.7 g/dL (32.0-36.0); Mean Corpuscular Volume 88.2 fL (80.0-100.0); Monocytes # (auto) 0.3 10 ^3/uL (0-1.3); Monocytes % (auto) 3.2 % (0.0-12.0); Neutrophils # (auto) 8.5 10 ^3/uL (1.6-8.6); Neutrophils % (auto) 86.7 % (37.0-80.0); Nucleated Red Blood Cells % 0.1 %; Platelet Count (auto) 252 10^3/uL (140-450); Red Blood Cells 5.31 10^6/uL (4.0-5.20); Red Cell Distribution Width 14.5 % (11.8-14.3); White Blood Cell 9.8 10^3/uL (4.4-10.8)
[2025-01-12 14:06] LABS: Chloride 104 mmol/L (98-107); Potassium 3.6 mmol/L (3.5-5.1); Sodium 140 mmol/L (136-145)
[2025-01-12 14:07] LABS: Anion Gap 14 (5-15); Carbon Dioxide 22 mmol/L (20-31)
[2025-01-12 14:08] LABS: Calcium 9.8 mg/dL (8.7-10.4)
[2025-01-12 14:12] LABS: BUN/Creatinine Ratio 17.9 (10.0-20.0); Blood Urea Nitrogen 10 mg/dL (9-23)
[2025-01-12 14:16] LABS: Glucose 143 mg/dL (74-106)
--- NOTE | 2025-01-12 14:59 | DVH ---
EXAM: XY CHEST PORTABLE HISTORY: chest pain COMPARISON: CHEST PORTABLE on DOS: 03/26/22, CXRP on DOS: 03/26/22, CHEST PORTABLE on DOS: 03/22/22, CXR P on DOS: 03/22/22, CHEST PORTABLE on DOS: 03/19/21 TECHNIQUE: Portable AP view of the chest was performed. FINDINGS: No pneumothorax, consolidative infiltrates, or pulmonary edema. The heart is not enlarged. There is t horacic degenerative disc disease. IMPRESSION: No acute intrathoracic process.
[2025-01-12 17:15] LABS: Urine Bacteria FEW /hpf (None Seen); Urine Blood Negative /uL (Negative); Urine Budding Yeast OCCASIONAL /hpf (None Seen); Urine Clarity Turbid (Clear); Urine Color Yellow (Yellow); Urine Hyaline Cast FEW /lpf (0 - 2); Urine Mucus FEW (None Seen); Urine Protein, UAD TRACE (Negative); Urine Squamous Epithelial Cell FEW /hpf (<5); Urine Urobilinogen Normal (Negative); Urine WBC 33 /HPF (0-5)
[2025-01-12] MEDS: cefTRIAXone 1GM/50ML D5W 50 ML IV ONE (17:39)
[2025-01-12] MEDS ORDERED: DEXTROSE (50%) 50ML SYRG IV PRN (18:45)
[2025-01-12] MEDS ORDERED: hydrALAZINE HCL 20 MG/ML VL IV PRN (18:45)
[2025-01-12] MEDS ORDERED: ONDANSETRON HCL 4 MG/2 ML VIAL IV PRN (18:45)
[2025-01-12] MEDS ORDERED: DOCUSATE SOD 100 MG CAP PO PRN (18:45)
[2025-01-12] MEDS ORDERED: NITROGLYCERIN 0.4 MG SL TAB SL PRN (19:30)
[2025-01-12] MEDS ORDERED: MORPHINE SULFATE INJ 2 MG/ml SYRG IV PRN (19:30)
--- NOTE | 2025-01-12 19:39 | DVHHP2 ---
History of Present Illness Reason for Visit: Acute chest pain History of Present Illness The patient is a 64-year-old female with past medical history of DM, hypertension, Coronary artery disease, and AFib who presented to [facility] ED with complaint of acute chest pain. Patient reports symptoms progressively get worse with left-sided chest pain for the past 1 day, worse with exertion, generalized weakness, getting worse that prompted this visit. Patient states she is suffering from leaking valve heart disease and was scheduled for surgery on February 10, 2025 at [place]. Patient was seen and evaluated in the ED, laboratory data shows WBC 9.8, platelets 252, sodium 140, potassium 3.6, BUN 10, creatinine 0.56, glucose 143, calcium 9.8, troponin 3, blood pressure 118/80, heart rate 108, temperature 97.6 F, O2 saturation 99% on room air. Chest x-ray show no acute intrathoracic process, urinalysis positive for urinary tract infection. Patient was started on IV antibiotic regimen Rocephin, please see medication orders section in the computer. On my assessment, patient denied chest pain at this moment, no headache, no dizziness, no shortness of breath, no diaphoresis, no nausea, no vomiting, no fever, no chills. Patient was admitted for further evaluation and medical management. Past Medical History AFIB, CAD, DM, HTN Past Surgical History , Hysterectomy, Tonsillectomy Family History Reviewed, noncontributory to the management of this case. Past Social History The patient lives at home, denies smoking, alcohol or illicit drugs abuse. Review of Systems Constitutional: Yes: Weakness; No: Fever, Chills, Sweats, Malaise, Other Eyes: No: Pain, Vision change, Conjunctivae inflammation, Eyelid inflammation, Other, Redness ENT: No: Ear pain, Ear discharge, Nose pain, Nose discharge, Nose congestion, Mouth pain, Mouth swelling, Throat pain, Throat swelling, Other Respiratory: No: Cough, Dry, Shortness of breath, SOB with excertion, Wheezing, Hemoptysis, Pleuritic Pain, Sputum, Wheezing, Other Cardiovascular: Chest Pain; No: Palpitations, Orthopnea, Paroxysmal Noc. Dyspnea, Edema, Lt Headedness, Other Gastrointestinal: No: Nausea, Vomiting, Abdominal Pain, Diarrhea, Constipation, Melena, Hematochezia, Other Genitourinary: No Dysuria, No Frequency, No Incontinence, No Hematuria, No Retention, No Other Musculoskeletal: No: other, neck pain, shoulder pain, arm pain, back pain, hand pain, leg pain, foot pain Skin: No: Rash, Lesions, Jaundice, Bruising, Other Neurological: No: Weakness, Numbness, Incoordination, Change in speech, Confusion, Seizures, Other Allergies: Coded Allergies: Ibuprofen (Verified Allergy, Unknown, 03/19/21) Medications Current Medications Medications Dose Ordered Sig/Flakito Route Start Time Stop Time Status Last Admin Dose Admin Hydralazine HCl 10 mg Q6HP PRN IV 01/12/25 18:45 Ceftriaxone Sodium 50 ml @ 100 mls/hr DAILY@09 IV 01/13/25 09:00 Aspirin 81 mg DAILY PO 01/13/25 10:00 UNV Atorvastatin Calcium 20 mg HS PO 01/12/25 22:00 Diagnostic Test (Pha) 1 strip ACHS 01/12/25 22:00 Insulin Human Regular ACHS SC 01/12/25 22:00 Dextrose 50 ml UD PRN IV 01/12/25 18:45 Sodium Chloride 10 ml Q8HR IV 01/12/25 22:00 Acetaminophen/ Hydrocodone Bitart 1 tab Q4HP PRN PO 01/12/25 18:45 Ondansetron HCl 4 mg Q4HP PRN IV 01/12/25 18:45 UNV Docusate Sodium 100 mg BIDPRN PRN PO 01/12/25 18:45 Acetaminophen 650 mg Q6HP PRN PO 01/12/25 18:45 Exam Vital Signs Vital Signs Date Time Temp Pulse Resp B/P (MAP) Pulse Ox O2 Delivery O2 Flow Rate FiO2 01/12/25 16:42 97.6 108 20 118/80 (93) 99 97.6 General Appearance: Alert, Oriented X3, Cooperative, No acute distress HEENT: Atraumatic, PERRLA, EOMI, Mucous membr. moist/pink Respiratory: Clear to auscultation, Normal air movement Cardiovascular: Normal S1, Normal S2, No murmurs Abdominal: Normal bowel sounds, Soft, No tenderness, No hepatospenomegaly, No masses Extremities: No clubbing, No cyanosis, No edema, Normal pulses, No tenderness/swelling Skin: No rashes, No breakdown, No significant lesion Neuro: Normal speech, Normal tone, Sensation intact, Cranial nerves 3-12 NL, Reflexes 2+, Other (Generalized weakness) Psych/Mental Status: Mental status NL, Mood NL Labs/Xrays Labs Test 01/12/25 17:08 01/12/25 17:01 01/12/25 13:45 Range/Units Urine Color Yellow Yellow Urine Clarity Turbid H Clear Urine pH 6.0 5.0-9.0 Urine Specific [place] 1.020 1.001-1.035 Urine Protein Trace H Negative Urine Ketones 3+ H Negative Urine Blood Negative Negative /uL Urine Nitrite 2+ H Negative Urine Bilirubin Negative Negative Urine Urobilinogen Normal Negative mg/dL Urine Leukocyte Esterase 2+ Negative /uL Urine RBC <1 0 - 4 /hpf Urine Microscopic WBC 33 H 0-5 /HPF Urine Squamous Epithelial Cells Few <5 /hpf Urine Bacteria Few H None Seen /hpf Urine Hyaline Casts Few 0 - 2 /lpf Urine Mucus Few None Seen Urine Yeast (Budding) Occasional None Seen /hpf Urine Glucose Normal Normal mg/dL Troponin I High Sensitivity 3 L </=34 ng/L White Blood Count 9.8 4.4-10.8 10^3/uL Red Blood Count 5.31 H 4.0-5.20 10^6/uL Hemoglobin 15.8 12.2-16.2 g/dL Hematocrit 46.8 H 36.0-46.0 % Mean Corpuscular Volume 88.2 80.0-100.0 fL Mean Corpuscular Hemoglobin 29.7 28.0-32.0 pg Mean Corpuscular Hemoglobin Concent 33.7 32.0-36.0 g/dL Red Cell Distribution Width 14.5 H 11.8-14.3 % Platelet Count 252 140-450 10^3/uL Mean Platelet Volume 8.5 6.9-10.8 fL Neutrophils (%) (Auto) 86.7 H 37.0-80.0 % Lymphocytes (%) (Auto) 9.2 L 10.0-50.0 % Monocytes (%) (Auto) 3.2 0.0-12.0 % Eosinophils (%) (Auto) 0.5 0.0-7.0 % Basophils (%) (Auto) 0.4 0.0-2.0 % Neutrophils # (Auto) 8.5 1.6-8.6 10 ^3/uL Lymphocytes # (Auto) 0.9 0.4-5.4 10 ^3/uL Monocytes # (Auto) 0.3 0-1.3 10 ^3/uL Eosinophils # (Auto) 0.1 0-0.8 10 ^3/uL Basophils # (Auto) 0 0-0.2 10 ^3/uL Nucleated Red Blood Cells 0.1 % Sodium Level 140 136-145 mmol/L Potassium Level 3.6 3.5-5.1 mmol/L Chloride Level 104 98-107 mmol/L Carbon Dioxide Level 22 20-31 mmol/L Anion Gap 14 5-15 Blood Urea Nitrogen 10 9-23 mg/dL Creatinine 0.56 0.550-1.02 mg/dL Glomerular Filtration Rate Calc 102 >90 mL/min BUN/Creatinine Ratio 17.9 10.0-20.0 Serum Glucose 143 H 74-106 mg/dL Calcium Level 9.8 8.7-10.4 mg/dL PATIENT: JAMIE BAIN ACCT: [id number] UNIT: [id number] : 1960 LOC: ER ROOM / BED: / AGE / SEX: 64 / F ADM STATUS: REG ER SERVICE 1343 ORDERING PHYSICIAN: ASIF RODRIGUEZ MD PROCEDURE(s): CXRP - CHEST PORTABLE REASON: chest pain ORDER NUMBER(s): [id number], ACCESSION NUMBER(s): [id number] EXAM: XY CHEST PORTABLE HISTORY: chest pain COMPARISON: CHEST PORTABLE on DOS: 03/26/22, CXRP on DOS: 03/26/22, CHEST PORTABLE on DOS: 03/22/22, CXRP on DOS: 03/22/22, CHEST PORTABLE on DOS: 03/19/21 TECHNIQUE: Portable AP view of the chest was performed. FINDINGS: No pneumothorax, consolidative infiltrates, or pulmonary edema. The heart is not enlarged. There is thoracic degenerative disc disease. IMPRESSION: No acute intrathoracic process. Assessment/Plan Assessment/Plan Acute chest pain Complicated UTI (urinary tract infection) Plan 1. Admit to telemetry unit 2. Breathing treatment 3. Pain control management 4. IV antibiotic management 5. Management of fluids and electrolytes 6. Consultation for Cardiology 7. Diagnostic test chest x-ray 8. DVT prophylaxis-on aspirin 9. Repeat labs CBC, CMP in a.m. 10. Home medication reviewed and reconciled 11. Continue with current medical management 12. Treatment plan discussed with patient and RN. Patient verbalized understanding. Plan discussed with: Patient, Other (RN) My Orders Orders - ROBBY BROWN DNP Procedure Category Date Status Time Consistent DIET 01/13/25 Transmitted Carb(Ccho)Diabetes Breakfast Urine Bacterial GARCIA 01/12/25 In Process Culture 18:38 Hydralazine Injection PHA 01/12/25 In Process (Apresoline Inject 18:45 Ceftriaxone 1gm/50ml PHA 01/13/25 In Process D5w (Rocephin) 09:00 Aspirin Tablet PHA 01/13/25 Logged 10:00 Atorvastatin (Lipitor) PHA 01/12/25 In Process 22:00 Glucose Blood PHA 01/12/25 In Process (Accu-Chek Comfort 22:00 Insulin R (Human) PHA 01/12/25 In Process (Insulin R) 22:00 Dextrose 50% Syringe PHA 01/12/25 In Process 18:45 Allergies SOLO 01/12/25 In Process 18:38 Code Status CODE 01/12/25 Transmitted 18:38 Sodium Chloride Lock PHA 01/12/25 In Process (Saline Lock Ns) 22:00 Oxygen Per Hour RT 01/12/25 Transmitted 18:38 Hydrocodone-Acet PHA 01/12/25 In Process 5/325mg Tab ([place] 18:45 Ondansetron Hcl PHA 01/12/25 Logged (Zofran) 18:45 Docusate Sodium PHA 01/12/25 In Process Capsule (Colace 18:45 Complete Blood Count LAB 01/13/25 Verified 04:00 Comprehensive LAB 01/13/25 Verified Metabolic Panel 04:00 Condition: Serious SOLO 01/12/25 In Process 18:38 Acetaminophen Tablet PHA 01/12/25 In Process (Tylenol Tablet) 18:45 Bedrest With Bathroom SOLO 01/12/25 In Process Privileg 18:38 Maintain Bed Rest SOLO 01/12/25 In Process 18:38 Sequential OSLO 01/12/25 In Process Compression Device Admit ADMIT 01/12/25 Verified 19:18 Nitroglycerin PHA 01/12/25 Verified Sublingual (Ntrostat 19:30 Morphine Sulfate PHA 01/12/25 Verified Injection 19:30 Stat Ekg For Chest SOLO 01/12/25 Verified Pain 19:18 Notify Md Of Changes SOLO 01/12/25 Verified From Base 19:18 Occ Therapy Asst For [facility] 01/12/25 Verified 24 Hours 19:18 Emergency Dysrhythmia [facility] 01/12/25 Verified Protocol 19:18 Rhythm Strips Once [facility] 01/12/25 Verified Every Shift 19:18 Oxygen By Nasal RT 01/12/25 Verified Cannula 19:18 Problem List: (1) Acute chest pain (2) Complicated UTI (urinary tract infection) Date of Service: Jan 12, 2025 Billing Provider: ROBBY BROWN DNP Common Visit Codes: [id number] INP/OBS CARE (HIGH) ROBBY BROWN DNP Jan 12, 2025 19:39
[2025-01-12] MEDS: InsuLIN REG 1unit/0.01ml Soln (100units/ml) SC SCH (22:00)
[2025-01-12 22:17] VITALS: BP 146/99; PULSE 99; RESP 17; TEMP 98.4; O2SAT 95
[2025-01-12 22:28] VITALS: PULSE 97; RESP 16; O2SAT 95
[2025-01-12] MEDS: ATORVASTATIN 20 MG TAB PO SCH (22:32)
[2025-01-12] MEDS: ACCU-CHEK COMFORT CURVE STRIP VI SCH (22:33)
[2025-01-12] MEDS: SODIUM CHLOR 0.9% PF (SALINE LOCK) 10ML VIAL/SYR IV SCH (22:33)
[2025-01-12] MEDS ORDERED: EMPA1TAB3 PO (23:03)
[2025-01-12] MEDS ORDERED: ATOR20TA50 PO (23:06)
[2025-01-12] MEDS: HYDROcodone-ACET 5/325MG TAB PO PRN (23:10)
[2025-01-13] VITALS (7 sets, daily range): BP systolic 141–144; BP diastolic 83–93; PULSE 76–90; RESP 17–18; TEMP 97.6–98.7; O2SAT 95–98
[2025-01-13 06:48] LABS: Basophils # (auto) 0 10 ^3/uL (0-0.2); Basophils % (auto) 0.3 % (0.0-2.0); Eosinophils # (auto) 0.1 10 ^3/uL (0-0.8); Eosinophils % (auto) 1.2 % (0.0-7.0); Hematocrit 43.9 % (36.0-46.0); Hemoglobin 14.8 g/dL (12.2-16.2); Lymphocytes # (auto) 1.1 10 ^3/uL (0.4-5.4); Lymphocytes % (auto) 22.2 % (10.0-50.0); Mean Corpuscular Hemoglobin 29.9 pg (28.0-32.0); Mean Corpuscular Hgb Conc. 33.8 g/dL (32.0-36.0); Mean Corpuscular Volume 88.6 fL (80.0-100.0); Monocytes # (auto) 0.4 10 ^3/uL (0-1.3); Monocytes % (auto) 7.3 % (0.0-12.0); Neutrophils # (auto) 3.4 10 ^3/uL (1.6-8.6); Nucleated Red Blood Cells % 0.1 %; Platelet Count (auto) 237 10^3/uL (140-450); Red Blood Cells 4.95 10^6/uL (4.0-5.20); Red Cell Distribution Width 14.2 % (11.8-14.3); White Blood Cell 4.9 10^3/uL (4.4-10.8)
[2025-01-13 07:03] LABS: Alanine Aminotransferase 24 U/L (7-40); Alkaline Phosphatase 97 U/L (46-116); Anion Gap 11 (5-15); Aspartate Aminotransferase 17 U/L (<34); BUN/Creatinine Ratio 23.3 (10.0-20.0); Bilirubin, Total 0.6 mg/dL (0.2-1.0); Blood Urea Nitrogen 10 mg/dL (9-23); Calcium 8.8 mg/dL (8.7-10.4); Carbon Dioxide 24 mmol/L (20-31); Chloride 102 mmol/L (98-107); Sodium 137 mmol/L (136-145); Total Protein 6.8 g/dL (5.7-8.2)
[2025-01-13 07:17] LABS: Glucose 116 mg/dL (74-106); Potassium 3.2 mmol/L (3.5-5.1)
[2025-01-13] MEDS: ACETAMINOPHEN 325 MG TAB PO PRN (08:04)
[2025-01-13] MEDS: cefTRIAXone 1GM/50ML D5W 50 ML IV SCH (08:28)
[2025-01-13] MEDS: ASPirin 81 mg TAB PO SCH (09:01)
[2025-01-13] MEDS: POTASSIUM CHL 20 Meq TABLET PO ONE (09:01)
--- NOTE | 2025-01-13 16:02 | DVHPNRES ---
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 Patient is Dr Law office patient, Right now patient stated SOB more than chest pain, we ordered ECHO and consult cardiology dr Law for further assessment Objective vital signs Vital Sign Date Time Temp Pulse Resp B/P (MAP) Pulse Ox O2 Delivery O2 Flow Rate FiO2 01/13/25 08:48 97.7 76 17 141/83 (102) 95 97.7 01/13/25 08:05 Room Air* 0 21 Total Intake and Output 01/12/25 01/12/25 01/13/25 15:00 23:00 07:00 Intake Total 50 ml 480 ml Balance 50 ml 480 ml medications Current Medications Medications Dose Ordered Sig/Flakito Route Start Time Stop Time Status Last Admin Dose Admin Hydralazine HCl 10 mg Q6HP PRN IV 01/12/25 18:45 Cancel Ceftriaxone Sodium 50 ml @ 100 mls/hr DAILY@09 IV 01/13/25 09:00 01/13/25 08:28 100 MLS/HR Aspirin 81 mg DAILY PO 01/13/25 10:00 01/13/25 09:01 81 MG Atorvastatin Calcium 20 mg HS PO 01/12/25 22:00 01/12/25 22:32 20 MG Diagnostic Test (Pha) 1 strip ACHS 01/12/25 22:00 01/13/25 11:20 1 STRIP Insulin Human Regular ACHS SC 01/12/25 22:00 01/13/25 11:31 2 UNITS Dextrose 50 ml UD PRN IV 01/12/25 18:45 Sodium Chloride 10 ml Q8HR IV 01/12/25 22:00 01/13/25 06:19 10 ML Acetaminophen/ Hydrocodone Bitart 1 tab Q4HP PRN PO 01/12/25 18:45 01/12/25 23:10 1 TAB Ondansetron HCl 4 mg Q4HP PRN IV 01/12/25 18:45 Cancel Docusate Sodium 100 mg BIDPRN PRN PO 01/12/25 18:45 Cancel Acetaminophen 650 mg Q6HP PRN PO 01/12/25 18:45 01/13/25 16:01 650 MG Nitroglycerin 0.4 mg Q5MINP PRN SL 01/12/25 19:30 Cancel Morphine Sulfate 2 mg Q30M PRN IV 01/12/25 19:30 Cancel Examination General Appearance: Alert, Oriented X3, Cooperative, No acute distress HEENT: Atraumatic, PERRLA, EOMI, Mucous membr. moist/pink Respiratory: Clear to auscultation, Normal air movement Cardiovascular: Normal S1, Normal S2, No murmurs Abdominal: Normal bowel sounds, Soft, No tenderness, No hepatospenomegaly, No masses Extremities: No clubbing, No cyanosis, No edema, Normal pulses, No tenderness/swelling Skin: No rashes, No breakdown, No significant lesion Neuro: Normal speech, Normal tone, Sensation intact, Cranial nerves 3-12 NL, Reflexes 2+, Other (Generalized weakness) Psych/Mental Status: Mental status NL, Mood NL laboratory and microbiology Laboratory Tests 01/13/25 05:10 Test 01/13/25 05:10 Range/Units Serum Glucose 116 H 74-106 mg/dL Microbiology Date/Time Source Procedure Growth Status 01/12/25 17:08 Voided Urine Urine Culture - Preliminary Resulted Problem List/Assessment/Plan Problem List/Assessment/Plan #Chest pain #Possible stable angina #H/o of valvular leakage? #CAD? #Afib #Hypertensive heart disease with diastolic/systolic dysfunction #Complicated UTI Plan Diabetic diet Apixaban Aspirin Atorvastatin Ceftriaxone Mild ISS Atenolol 25 mg Jardiance 10 mg Pending ECHO and cardiology consult Case discussed with Dr Londono Plan discussed with: Patient, Other My Orders My Orders Orders - RED ROLDAN Procedure Category Date Status Time * Cardiology Consult CONS 01/13/25 Transmitted 09:55 Date of Service: Jan 13, 2025 Billing Provider: BOB LONDONO MD Common Visit Codes: [id number] INP/OBS CARE(HIGH) RED ROLDAN RESIDENT Jan 13, 2025 16:02 BOB LONDONO MD Jan 15, 2025 15:26
[2025-01-14] VITALS (8 sets, daily range): BP systolic 124–147; BP diastolic 69–90; PULSE 69–89; RESP 17–18; TEMP 97.8–98.2; O2SAT 97–99
[2025-01-14 06:38] LABS: Anion Gap 9 (5-15); Calcium 9.6 mg/dL (8.7-10.4); Carbon Dioxide 26 mmol/L (20-31); Chloride 105 mmol/L (98-107); Potassium 3.7 mmol/L (3.5-5.1); Sodium 140 mmol/L (136-145)
[2025-01-14 06:44] LABS: BUN/Creatinine Ratio 13.7 (10.0-20.0)
[2025-01-14 06:48] LABS: Blood Urea Nitrogen 7 mg/dL (9-23); Glucose 143 mg/dL (74-106)
[2025-01-14] MEDS: APIXABAN 5 MG TAB PO SCH (09:26)
[2025-01-14] MEDS: EMPAGLIFLOZIN 10 MG TAB PO SCH (09:26)
[2025-01-14] MEDS: ATENOLOL 25 MG TAB PO SCH (09:27)
--- NOTE | 2025-01-14 13:11 | ECG ---
[facility] Test Date: 2025-01-12 Test Time: 13:41:42 Pat Name: JAMIE BAIN [facility] Gender: F Bell Spinner Sousaphones: DIMAS : 1960 Requested By: ASIF RODRIGUEZ Order Number: [id number] Reading MD: Mathieu Hernandez Measurements Intervals [place] Rate: 109 P: 87 [place]: 146 QRS: 73 QRSD: 82 T: 25 QT: 332 QTc: 448 Interpretive Statements Sinus tachycardia Probable anteroseptal infarct, old Electronically Signed On 01-15-2025 21:14:23 PDT by Mathieu Hernandez Please click the below link to view image of tracing.
--- NOTE | 2025-01-14 13:45 | DVHSR ---
APPROVED REPORT EXAM: Two-dimensional and M-mode echocardiogram with Doppler and color Doppler. Blood Pressure: 141/83 mmHg INDICATION Chest Pain valve leakage? RISK FACTORS Height: 66, Weight: 155 DIMENSIONS LVDd (3.8-5.7cm)LA (2D)4.2 (1.9-4.0cm)Aortic Root3.0 (2.0-3.7cm) LVDs (2.5-4.0cm)LA (MM) (1.9-4.0cm)Aortic Cusp Exc1.4 (1.5-2.0cm) EF (%) 58.0 (55-70%)Rt. Atrium3.6 (1.9-4.0cm)Asc. Aorta cm Mitral Valve MitralMitral Stenosis E wave1.16m/sMV Mean GR.mmHg A wave0.79m/sMV Peak GR.93mmHg E/A ratio1.52D MVAcm2 DECEL [id number] 1/2 [id number] IVRTmsDop MVA3.42cm2 Aortic Valve Aortic ValveAortic Stenosis V11.14m/Kevin Mean GR.5mmHg V21.58m/Kevin Peak GR.10mmHg LVOT Diameter1.7 (1.8-2.4cm)Doppler AVA1.64cm2 Tricuspid Valve TR Velocity2.57m/s [id number] Other Information Technically limited study due to poor visualization Conclusion LVEF 55-60%, LVH. Moderate diastolic dysfunction Mild left atrial dilation Mild pulmonary hypertension, mild tricuspid regurgitation No significant valve disease
--- NOTE | 2025-01-14 14:12 | DVHINCON2 ---
Date Seen: Jan 14, 2025 Referring Physician MD Jorge A resident Reason for Consultation History of valvular abnormality, chest pain History of Present Illness This is a 64-year-old Ukrainian-speaking female who presents to the emergency room with chief complaint of chest pain. The patient reports that she has been experiencing intermittent chest pain for approximately five days prior to emergency room arrival. She describes the pain as unprovoked, intermittent, pressure-like in nature, left-sided and nonradiating. Associated symptoms include shortness of breath. Initial twelve lead electrocardiogram reveals normal sinus rhythm. Serial troponin levels have been negative. The patient is a very poor historian. The patient states that she sees digital pre press operator in the outpatient setting and has been told that she has "leakage in one of her valves". Other significant past medical history includes hypertension, dy slipidemia, paroxysmal atrial fibrillation (on Eliquis), and type 2 diabetes mellitus. Previous providers have documented patient has a history of coronary artery disease. Patient unable to confirm if she has ever had any kind of stent placement or coronary angiogram in the past. The patient reports that she has been scheduled to undergo a mitral clip in [place] on February 10, 2025. Paperwork brought in by patient's confirms that the patient has been referred from her primary cardiology (Dr. Law) to see Dr Luis Frank for mitral clip. Past Medical History Past medical history reviewed. No other significant than mentioned above. Past Surgical History Denies Family History: FH: chronic kidney disease G8 FATHER FH: heart disease G8 MOTHER G8 FATHER Hypertension G8 MOTHER G8 FATHER Family History Family history reviewed. Social History Denies the use of tobacco, alcohol or illicit drugs. Allergies: Coded Allergies: Ibuprofen (Verified Allergy, Unknown, 03/19/21) Home Meds Active Scripts Apixaban Base (ELIQUIS) 5 Mg Tab, 5 MG PO BID, #90 TAB Prov:CHRISTINE MENA MD 03/23/22 Diltiazem Hcl (Diltiazem Hcl) 60 Mg Tab, 60 MG PO DAILY for 30 Days, #30 MG Prov:CHRISTINE MEAN MD 03/23/22 Atenolol (Atenolol) 25 Mg Tab, 25 MG PO DAILY for 30 Days, #30 MG Prov:CHRISTINE MENA MD 03/23/22 Reported Medications Atorvastatin Calcium (ATORVASTATIN CALCIUM) 20 Mg Tab, 1 TAB PO DAILY, #30 TAB 5 Refills 01/12/25 Empagliflozin (Jardiance) 25 Mg Tab, 25 MG PO DAILY, TAB 01/12/25 Nitroglycerin (NTROSTAT SUBLINGUAL) 0.4 Mg Sl, 0.4 MG SL PRN, TAB *MAY REPEAT EVERY 5 MINUTES X 3 TOTAL IF NO RELIEF, INITIATE ANALGESIC THERAPY. NOTIFY PHYSICIAN *Do not crush. 03/23/22 Home Meds Home medications reviewed. Current Medications Current Medications Medications (Trade) Dose Ordered Sig/Flakito Route PRN Reason Start Time Stop Time Status Last Admin Apixaban (Eliquis) 5 mg BID PO 01/14/25 10:00 01/14/25 09:26 Empaglifozin (Jardiance) 10 mg DAILY PO 01/14/25 10:00 01/14/25 09:26 Atenolol (Tenormin Tablet) 25 mg DAILY PO 01/14/25 10:00 01/14/25 09:27 Review of Systems Constitutional: No symptom reported Ears, Nose, & Throat: No symptom reported Eyes: No symptom reported Neurological: No symptoms reported Pulmonary/Respiratory: No symptoms reported Cardiovascular: Chest pain Gastrointestinal: No symptom reported Genitourinary: No symptom reported Musculoskeletal: No symptom reported Skin: No symptom reported Psychiatric: No symptom reported Endocrine: No symptom reported Hematologic/Lymphatic: No symptom reported Vital Signs Vital Signs Date Time Temp Pulse Resp B/P (MAP) Pulse Ox O2 Delivery O2 Flow Rate FiO2 01/14/25 12:30 97.9 73 17 124/70 (88) 98 97.9 01/14/25 08:08 Room Air* 0 21 Physical Exam General Appearance: Cooperative. Well-developed. Well-nourished. No acute distress. Pulmonary/Respiratory: Clear, bilateral breaths sounds. Cardiovascular/Chest: Regular rate and rhythm. Peripheral Pulses: 2+ Radial (R). 2+ Radial (L). 2+ Pedal (R). 2+ Pedal (L) Abdominal Exam: Normal bowel sounds. Ankle Exam: Negative ankle edema Lower extremities: Negative lower extremity edema Neuro/Mental Status: A/OX4, coherent. Thoughts/Psych: Normal thought pattern. Appropriate mood and affect. Good judgment and insight. Appearance: No acute distress. Skin Exam: Normal inspection. Normal color. Warm and dry. Labs/Diagnostic Data Labs Test 01/14/25 11:21 01/14/25 05:38 01/13/25 05:10 01/12/25 17:08 Range/Units POC Glucose 128 H 70-106 mg/dl Sodium Level 140 136-145 mmol/L Potassium Level 3.7 3.5-5.1 mmol/L Chloride Level 105 98-107 mmol/L Carbon Dioxide Level 26 20-31 mmol/L Anion Gap 9 5-15 Blood Urea Nitrogen 7 L 9-23 mg/dL Creatinine 0.51 L 0.550-1.02 mg/dL Glomerular Filtration Rate Calc 104 >90 mL/min BUN/Creatinine Ratio 13.7 10.0-20.0 Serum Glucose 143 H 74-106 mg/dL Calcium Level 9.6 8.7-10.4 mg/dL White Blood Count 4.9 # 4.4-10.8 10^3/uL Red Blood Count 4.95 4.0-5.20 10^6/uL Hemoglobin 14.8 12.2-16.2 g/dL Hematocrit 43.9 36.0-46.0 % Mean Corpuscular Volume 88.6 80.0-100.0 fL Mean Corpuscular Hemoglobin 29.9 28.0-32.0 pg Mean Corpuscular Hemoglobin Concent 33.8 32.0-36.0 g/dL Red Cell Distribution Width 14.2 11.8-14.3 % Platelet Count 237 140-450 10^3/uL Mean Platelet Volume 9.0 6.9-10.8 fL Neutrophils (%) (Auto) 69.0 37.0-80.0 % Lymphocytes (%) (Auto) 22.2 10.0-50.0 % Monocytes (%) (Auto) 7.3 0.0-12.0 % Eosinophils (%) (Auto) 1.2 0.0-7.0 % Basophils (%) (Auto) 0.3 0.0-2.0 % Neutrophils # (Auto) 3.4 1.6-8.6 10 ^3/uL Lymphocytes # (Auto) 1.1 0.4-5.4 10 ^3/uL Monocytes # (Auto) 0.4 0-1.3 10 ^3/uL Eosinophils # (Auto) 0.1 0-0.8 10 ^3/uL Basophils # (Auto) 0 0-0.2 10 ^3/uL Nucleated Red Blood Cells 0.1 % Total Bilirubin 0.6 0.2-1.0 mg/dL Aspartate Amino Transferase (AST) 17 <34 U/L Alanine Aminotransferase (ALT) 24 7-40 U/L Alkaline Phosphatase 97 46-116 U/L B-Type Natriuretic Peptide 44.49 0-100 pg/mL Total Protein 6.8 5.7-8.2 g/dL Albumin 4.0 3.2-4.8 g/dL Urine Color Yellow Yellow Urine Clarity Turbid H Clear Urine pH 6.0 5.0-9.0 Urine Specific [place] 1.020 1.001-1.035 Urine Protein Trace H Negative Urine Ketones 3+ H Negative Urine Blood Negative Negative /uL Urine Nitrite 2+ H Negative Urine Bilirubin Negative Negative Urine Urobilinogen Normal Negative mg/dL Urine Leukocyte Esterase 2+ Negative /uL Urine RBC <1 0 - 4 /hpf Urine Microscopic WBC 33 H 0-5 /HPF Urine Squamous Epithelial Cells Few <5 /hpf Urine Bacteria Few H None Seen /hpf Urine Hyaline Casts Few 0 - 2 /lpf Urine Mucus Few None Seen Urine Yeast (Budding) Occasional None Seen /hpf Urine Glucose Normal Normal mg/dL Test 01/12/25 17:01 Range/Units Troponin I High Sensitivity 3 L </=34 ng/L Microbiology Date/Time Source Procedure Growth Status 01/12/25 17:08 Voided Urine Urine Culture - Final Escherichia coli Complete Assessment Chest pain, rule out coronary ischemia Paroxysmal atrial fibrillation (on Eliquis) Chronic HFpEF, NYHA class III Hypertension Dyslipidemia Questionable coronary artery disease Mild tricuspid regurgitation Type 2 diabetes mellitus Plan/Recommendation We will continue with the following plan/recommendations (Dr. Hernandez): Case discussed with . Transthoracic echocardiogram reveals an EF of 55- 60%. The patient reports that she has been referred from her primary digital pre press operator to see a specialist in [place] for a mitral clip placement on 02/10/25. Echocardiogram done on this admission does not reveal mitral regurgitation. We will repeat transthoracic echocardiogram to confirm. The patient reports a stress test that was done in 's office last month. We will try and obtain medical records to confirm results of the stress test. At the time of assessment, the patient denies any cardiac symptoms. In the meantime, continue with close cardiac surveillance and notify cardiology team for any ECG changes. Thank you for allowing us to care for this patient. Please call with any questions or concerns. Critical care time spent: 44 minutes This medical document was created using an electronic medical record system with voice recognition software and computerized dictation system. Although this document has been carefully reviewed, there might still be some phonetic and typographical errors. Occasional wrong-word or ``sound-alike substitutions may have occurred due to the inherent limitations of voice recognition software. These areas are purely typographical due to imperfections of the software programs and do not reflect any compromise in the patient's medical care. Please read the chart carefully and recognize, using context, where these substitutions have occurred. Plan discussed with: Patient NYHA Physical activity limitations: NA Date of Service: Jan 14, 2025 Billing Provider: NIKITA ASHBY Cardiology Common Codes: [id number] INP/OBS CARE (High) Cardiology Consultation Codes: [id number] CONSULT <45MIN NIKITA ASHBY Jan 14, 2025 14:12
--- NOTE | 2025-01-14 17:16 | DVHPNRES ---
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 Patient is Dr Law office patient, Right now patient stated SOB more than chest pain, we ordered ECHO and consult cardiology. 01/14/2025: LVEF 55-60%, LVH. Moderate diastolic dysfunction, Mild left atrial dilation, Mild pulmonary hypertension, mild tricuspid regurgitation, No significant valve disease. The patient reports that she has been referred from her primary children's librarian to see a specialist in [place] for a mitral clip placement on 02/10/25. Echocardiogram done on this admission does not reveal mitral regurgitation. We will repeat transthoracic echocardiogram to confirm. The patient reports a stress test that was done in 's office last month. We will try and obtain medical records to confirm results of the stress test. Objective vital signs Vital Sign Date Time Temp Pulse Resp B/P (MAP) Pulse Ox O2 Delivery O2 Flow Rate FiO2 01/14/25 16:29 98.0 69 18 137/74 (95) 97 98.0 01/14/25 08:08 Room Air* 0 21 Total Intake and Output 01/13/25 01/13/25 01/14/25 15:00 23:00 07:00 Intake Total 50 ml 480 ml 400 ml Balance 50 ml 480 ml 400 ml medications Current Medications Medications Dose Ordered Sig/Flakito Route Start Time Stop Time Status Last Admin Dose Admin Hydralazine HCl 10 mg Q6HP PRN IV 01/12/25 18:45 Cancel Ceftriaxone Sodium 50 ml @ 100 mls/hr DAILY@09 IV 01/13/25 09:00 01/14/25 08:20 100 MLS/HR Aspirin 81 mg DAILY PO 01/13/25 10:00 01/14/25 09:25 81 MG Atorvastatin Calcium 20 mg HS PO 01/12/25 22:00 01/13/25 22:15 20 MG Diagnostic Test (Pha) 1 strip ACHS 01/12/25 22:00 01/14/25 16:17 1 STRIP Insulin Human Regular ACHS SC 01/12/25 22:00 01/14/25 06:25 2 UNITS Dextrose 50 ml UD PRN IV 01/12/25 18:45 Sodium Chloride 10 ml Q8HR IV 01/12/25 22:00 01/14/25 13:49 10 ML Acetaminophen/ Hydrocodone Bitart 1 tab Q4HP PRN PO 01/12/25 18:45 01/14/25 06:24 1 TAB Ondansetron HCl 4 mg Q4HP PRN IV 01/12/25 18:45 Cancel Docusate Sodium 100 mg BIDPRN PRN PO 01/12/25 18:45 Cancel Acetaminophen 650 mg Q6HP PRN PO 01/12/25 18:45 01/14/25 16:27 650 MG Nitroglycerin 0.4 mg Q5MINP PRN SL 01/12/25 19:30 Cancel Morphine Sulfate 2 mg Q30M PRN IV 01/12/25 19:30 Cancel Apixaban 5 mg BID PO 01/14/25 10:00 01/14/25 09:26 5 MG Empaglifozin 10 mg DAILY PO 01/14/25 10:00 01/14/25 09:26 10 MG Atenolol 25 mg DAILY PO 01/14/25 10:00 01/14/25 09:27 25 MG Examination General Appearance: Alert, Oriented X3, Cooperative, No acute distress HEENT: Atraumatic, PERRLA, EOMI, Mucous membr. moist/pink Respiratory: Clear to auscultation, Normal air movement Cardiovascular: Normal S1, Normal S2, No murmurs Abdominal: Normal bowel sounds, Soft, No tenderness, No hepatospenomegaly, No masses Extremities: No clubbing, No cyanosis, No edema, Normal pulses, No tenderness/swelling Skin: No rashes, No breakdown, No significant lesion Neuro: Normal speech, Normal tone, Sensation intact, Cranial nerves 3-12 NL, Reflexes 2+, Other (Generalized weakness) Psych/Mental Status: Mental status NL, Mood NL laboratory and microbiology Laboratory Tests 01/14/25 05:38 01/13/25 05:10 Test 01/14/25 05:38 Range/Units Serum Glucose 143 H 74-106 mg/dL Microbiology Date/Time Source Procedure Growth Status 01/12/25 17:08 Voided Urine Urine Culture - Final Escherichia coli Complete Problem List/Assessment/Plan Problem List/Assessment/Plan #Chest pain #Possible stable angina #H/o of valvular leakage? #CAD? #Afib #Hypertensive heart disease with diastolic dysfunction #Complicated UTI #Pulmonary hypertension Plan Diabetic diet Apixaban Aspirin Atorvastatin Ceftriaxone Mild ISS Atenolol 25 mg Jardiance 10 mg 01/14/2025: LVEF 55-60%, LVH. Moderate diastolic dysfunction, Mild left atrial dilation, Mild pulmonary hypertension, mild tricuspid regurgitation, No significant valve disease. The patient reports that she has been referred from her primary children's librarian to see a specialist in [place] for a mitral clip placement on 02/10/25. Echocardiogram done on this admission does not reveal mitral regurgitation. We will repeat transthoracic echocardiogram to confirm. The patient reports a stress test that was done in 's office last month. We will try and obtain medical records to confirm results of the stress test. Case discussed with Dr Ken Serra discussed with: Patient, Other (rn) My Orders My Orders Orders - RED ROLDAN RESIDENT Procedure Category Date Status Time Apixaban (Eliquis) PHA 01/14/25 In Process 10:00 Empagliflozin PHA 01/14/25 In Process (Jardiance) 10:00 Atenolol Tablet PHA 01/14/25 In Process (Tenormin Tablet) 10:00 * Cardiology Consult CONS 01/14/25 Transmitted 08:22 RED ROLDAN RESIDENT Jan 14, 2025 17:16
[2025-01-15 01:00] VITALS: BP 126/66; PULSE 70; RESP 18; TEMP 98.2; O2SAT 97
[2025-01-15 05:00] VITALS: BP 121/60; PULSE 71; RESP 18; TEMP 98.4; O2SAT 97
--- NOTE | 2025-01-15 07:46 | ECG ---
[facility] Test Date: 2025-01-14 Test Time: 11:42:30 Pat Name: JAMIE BAIN Department: Room: [facility] B Gender: F Undercover Cop: hiro noel RN : 1960 Requested By: NIKITA ASHBY Order Number: [id number] Reading MD: Mathieu Hernandez Measurements Intervals [place] Rate: 72 P: 22 MA: 134 QRS: 92 QRSD: 104 T: 70 QT: 383 QTc: 420 Interpretive Statements Sinus rhythm Right axis deviation ST elevation, consider inferior injury Electronically Signed On 01-15-2025 21:12:29 PDT by Mathieu Hernadnez Please click the below link to view image of tracing.
[2025-01-15 08:00] VITALS: PULSE 70
[2025-01-15 09:00] VITALS: BP 144/88; PULSE 68; RESP 18; TEMP 98.6; O2SAT 96
--- NOTE | 2025-01-15 19:02 | DVHINCON2 ---
Date of service: Jan 15, 2025 Referring Physician Calin Jules Reason for Consultation Chest pain History of Present Illness This is a 64 year old female with a PMH of hypertension, dyslipidemia, paroxysmal atrial fibrillation (on Eliquis), and type 2 diabetes mellitus who was brought in by ambulance on 01/14 with complaints of intermittent left sided chest pain x 5 days. Patient states that her chest pain worsens upon exertion and is experiencing generalized weakness and SOB. Chest x-ray shows NAD. Initial twelve lead electrocardiogram reveals normal sinus rhythm. Serial troponin levels have been negative. Patient was admitted to the hospital. I am asked to consult on this patient. Family History: FH: chronic kidney disease G8 FATHER FH: heart disease G8 MOTHER G8 FATHER Hypertension G8 MOTHER G8 FATHER Allergies: Coded Allergies: Ibuprofen (Verified Allergy, Unknown, 03/19/21) Home Meds Active Scripts Apixaban Base (ELIQUIS) 5 Mg Tab, 5 MG PO BID, #90 TAB Prov:CHRISTINE MENA MD 03/23/22 Reported Medications Atenolol (Atenolol) 50 Mg Tab, 1 TAB PO DAILY for 90 Days, #90 01/15/25 Omeprazole (Omeprazole Dr) 20 Mg Cap, 1 CAP PO DAILY for 90 Days, #90 01/15/25 Tirzepatide (Mounjaro) 5 Mg/0.5 Ml Inj, 5 MG SC QWEEKLY for 28 Days, #2 01/15/25 Diltiazem Hcl (Dilt-Xr) 120 Mg Cap, 1 CAP PO DAILY for 90 Days, #90 01/15/25 Atorvastatin Calcium (ATORVASTATIN CALCIUM) 20 Mg Tab, 1 TAB PO DAILY, #30 TAB 5 Refills 01/12/25 Empagliflozin (Jardiance) 25 Mg Tab, 25 MG PO DAILY, TAB 01/12/25 Nitroglycerin (NTROSTAT SUBLINGUAL) 0.4 Mg Sl, 0.4 MG SL PRN, TAB *MAY REPEAT EVERY 5 MINUTES X 3 TOTAL IF NO RELIEF, INITIATE ANALGESIC THERAPY. NOTIFY PHYSICIAN *Do not crush. 03/23/22 Review of Systems Constitutional: denies: chills, diaphoresis, fatigue, fever, malaise, sweats, weakness, others EENTM: denies: blurred vision, double vision, ear bleeding, ear discharge, ear drainage, ear pain, ear ringing, eye pain, eye redness, hearing loss, mouth pain, mouth swelling, nasal discharge, nose bleeding, nose congestion, nose pain, photophobia, tearing, throat pain, throat swelling, voice changes, others Respiratory: denies: cough, hemoptysis, orthopnea, SOB at rest, shortness of breath, SOB with excertion, stridor, wheezing, others Cardiovascular: reports: chest pain; denies: dizzy spells, diaphoresis, Dyspnea on exertion, edema, irregular heart beat, left arm pain, lightheadedness, palpitations, PND, syncope, others Gastrointestinal: denies: abdomen distended, abdominal pain, blood streaked bowels, constipated, diarrhea, dysphagia, difficulty swallowing, hematemesis, melena, nausea, poor appetite, poor fluid intake, rectal bleeding, rectal pain, vomiting, others Genitourinary: denies: abnormal vagina bleeding, burning, dyspareunia, dysuria, flank pain, frequency, hematuria, incontinence, pain, , vagina discharge, urgency, others Neurological: denies: dizziness, fainting, headache, left sided numbness, left sided weakness, numbness, paresthesia, pre-existing deficit, right sided numbness, right sided weakness, seizure, speech problems, tingling, tremors, weakness, others Musculoskeletal: denies: back pain, gout, joint pain, joint swelling, muscle pain, muscle stiffness, neck pain, others Integumetry: denies: bruises, change in color, change in hair/nails, dryness, laceration, lesions, lumps, rash, wounds, others Allergic/Immunocompromised: denies: Difficulty Healing, Frequent Infections, Hives, Itching, others Hematologic/Lymphatic: denies: anemia, blood clots, easy bleeding, easy bruising, swollen glands, others Endocrine: denies: excessive hunger, excessive sweating, excessive thirst, excessive urination, flushing, intolerance to cold, intolerance to heat, unexplained weight gain, unexplained weight loss, others Psychiatric: denies: anxiety, bipolar disorder, depression, hopeless, panic disorder, schizophrenia, sleepless, suicidal, others All Other Systems: Reviewed and Negative Vital Signs Vital Signs Date Time Temp Pulse Resp B/P (MAP) Pulse Ox O2 Delivery O2 Flow Rate FiO2 01/15/25 09:26 68 144/88 01/15/25 09:00 98.6 18 96 98.6 01/15/25 08:00 Room Air* 0 21 Physical Exam GENERAL: Alert and oriented x 3. No acute distress. EYES: PERRL, EOMI. Anicteric. HENT: Moist mucous membranes. LUNGS: Clear to auscultation bilaterally. CARDIOVASCULAR: Irregular rate and rhythm. ABDOMEN: Soft, nontender and nondistended. EXTREMITIES: No edema. NEUROLOGIC: No focal neurological deficits. SKIN: Warm, dry. Labs/Diagnostic Data Labs Test 01/15/25 16:30 01/14/25 05:38 01/13/25 05:10 01/12/25 17:08 Range/Units POC Glucose 127 H 70-106 mg/dl Sodium Level 140 136-145 mmol/L Potassium Level 3.7 3.5-5.1 mmol/L Chloride Level 105 98-107 mmol/L Carbon Dioxide Level 26 20-31 mmol/L Anion Gap 9 5-15 Blood Urea Nitrogen 7 L 9-23 mg/dL Creatinine 0.51 L 0.550-1.02 mg/dL Glomerular Filtration Rate Calc 104 >90 mL/min BUN/Creatinine Ratio 13.7 10.0-20.0 Serum Glucose 143 H 74-106 mg/dL Calcium Level 9.6 8.7-10.4 mg/dL White Blood Count 4.9 # 4.4-10.8 10^3/uL Red Blood Count 4.95 4.0-5.20 10^6/uL Hemoglobin 14.8 12.2-16.2 g/dL Hematocrit 43.9 36.0-46.0 % Mean Corpuscular Volume 88.6 80.0-100.0 fL Mean Corpuscular Hemoglobin 29.9 28.0-32.0 pg Mean Corpuscular Hemoglobin Concent 33.8 32.0-36.0 g/dL Red Cell Distribution Width 14.2 11.8-14.3 % Platelet Count 237 140-450 10^3/uL Mean Platelet Volume 9.0 6.9-10.8 fL Neutrophils (%) (Auto) 69.0 37.0-80.0 % Lymphocytes (%) (Auto) 22.2 10.0-50.0 % Monocytes (%) (Auto) 7.3 0.0-12.0 % Eosinophils (%) (Auto) 1.2 0.0-7.0 % Basophils (%) (Auto) 0.3 0.0-2.0 % Neutrophils # (Auto) 3.4 1.6-8.6 10 ^3/uL Lymphocytes # (Auto) 1.1 0.4-5.4 10 ^3/uL Monocytes # (Auto) 0.4 0-1.3 10 ^3/uL Eosinophils # (Auto) 0.1 0-0.8 10 ^3/uL Basophils # (Auto) 0 0-0.2 10 ^3/uL Nucleated Red Blood Cells 0.1 % Total Bilirubin 0.6 0.2-1.0 mg/dL Aspartate Amino Transferase (AST) 17 <34 U/L Alanine Aminotransferase (ALT) 24 7-40 U/L Alkaline Phosphatase 97 46-116 U/L B-Type Natriuretic Peptide 44.49 0-100 pg/mL Total Protein 6.8 5.7-8.2 g/dL Albumin 4.0 3.2-4.8 g/dL Urine Color Yellow Yellow Urine Clarity Turbid H Clear Urine pH 6.0 5.0-9.0 Urine Specific Kaplan 1.020 1.001-1.035 Urine Protein Trace H Negative Urine Ketones 3+ H Negative Urine Blood Negative Negative /uL Urine Nitrite 2+ H Negative Urine Bilirubin Negative Negative Urine Urobilinogen Normal Negative mg/dL Urine Leukocyte Esterase 2+ Negative /uL Urine RBC <1 0 - 4 /hpf Urine Microscopic WBC 33 H 0-5 /HPF Urine Squamous Epithelial Cells Few <5 /hpf Urine Bacteria Few H None Seen /hpf Urine Hyaline Casts Few 0 - 2 /lpf Urine Mucus Few None Seen Urine Yeast (Budding) Occasional None Seen /hpf Urine Glucose Normal Normal mg/dL Test 01/12/25 17:01 Range/Units Troponin I High Sensitivity 3 L </=34 ng/L Microbiology Date/Time Source Procedure Growth Status 01/12/25 17:08 Voided Urine Urine Culture - Final Escherichia coli Complete Assessment Chest pain. CAD. Paroxysmal atrial fibrillation. Hypertensive heart disease. Chronic HFpEF, NYHA class III. Complicated UTI. Pulmonary hypertension. Hypertension. Dyslipidemia. Mild tricuspid regurgitation. Type 2 diabetes mellitus. Plan/Recommendation I agree with your ongoing assessment and care of plan. Telemetry reviewed. Echocardiogram. [place] for pain management. Eliquis. Aspirin, Lipitor. Atenolol. IV antibiotics as ordered. Additional plan as per the hospital course. A total of 45 minutes was spent reviewing the patient record, examining the patient, making a diagnostic and therapeutic plan, discussing this plan with medical personnel, following up on diagnostic studies and following the patient for clinical stability excluding any and all procedures. At least 50% of this time was spent in direct, [id number] contact. Plan discussed with: Patient DONNELL SARGENT MD Jan 15, 2025 17:35
--- NOTE | 2025-01-15 19:16 | DVHSR ---
APPROVED REPORT EXAM: Two-dimensional and M-mode echocardiogram with Doppler and color Doppler. Blood Pressure: 121/60 mmHg INDICATION Chest Pain History of MR RISK FACTORS Height: 5'6", Weight: 154 DIMENSIONS LVDd4.4 (3.8-5.7cm)LA (2D)3.6 (1.9-4.0cm)Aortic Root2.6 (2.0-3.7cm) LVDs2.7 (2.5-4.0cm)LA (MM) (1.9-4.0cm)Aortic Cusp Exc1.4 (1.5-2.0cm) EF (%) 70.0 (55-70%)Rt. Atrium3.3 (1.9-4.0cm)Asc. Aorta3.2 cm IVSd1.0 (0.7-1.1cm)RV (D)2.7 (1.8-2.4cm) PWd0.8 (0.7-1.1cm) Mitral Valve MitralMitral Stenosis E wave0.94m/sMV Mean GR.mmHg A wave0.73m/sMV Peak GR.mmHg E/A ratio1.32D MVAcm2 DECEL [id number] 1/2 Timems Aortic Valve Aortic ValveAortic Stenosis V11.08m/Kevin Mean GR.4mmHg V21.41m/Kevin Peak GR.8mmHg LVOT Diameter1.9 (1.8-2.4cm)Doppler AVA2.17cm2 Pulmonic Valve V20.71m/s Tricuspid Valve TR Velocity2.00m/s [id number] Other Information Quality : Technically LimitedRhythm : Technically limited study due to body habitus. Conclusion LVEF 60-65%, mild LVH. Moderate diastolic dysfunction Mild tricuspid regurgitation Mild mitral regurgitation
[2025-01-15 20:00] VITALS: PULSE 82
[2025-01-15 20:49] VITALS: BP 124/64; PULSE 73; RESP 18; TEMP 98.2; O2SAT 99
[2025-01-16] VITALS (8 sets, daily range): BP systolic 113–135; BP diastolic 68–81; PULSE 66–78; RESP 18; TEMP 98–98.8; O2SAT 95–99
--- NOTE | 2025-01-16 04:32 | DVHPNRES ---
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 Patient is Dr Law office patient, Right now patient stated SOB more than chest pain, we ordered ECHO and consult cardiology. 01/14/2025: LVEF 55-60%, LVH. Moderate diastolic dysfunction, Mild left atrial dilation, Mild pulmonary hypertension, mild tricuspid regurgitation, No significant valve disease. 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 Echocardiogram done on this admission does not reveal mitral regurgitation. We will repeat transthoracic echocardiogram to confirm. The patient reports a stress test that was done in 's office last month. We will try and obtain medical records to confirm results of the stress test. 01/15/2025: Repeated ECHO showed similar findings, we are waiting on cardiology clearance after review stress test done in Dr Levine office Objective vital signs Vital Sign Date Time Temp Pulse Resp B/P (MAP) Pulse Ox O2 Delivery O2 Flow Rate FiO2 01/16/25 01:00 98.4 66 18 128/68 (88) 96 98.4 01/15/25 20:00 Room Air* 0 21 Total Intake and Output 01/15/25 01/15/25 01/16/25 15:00 23:00 07:00 Intake Total 900 ml Output Total 750 ml Balance 150 ml medications Current Medications Medications Dose Ordered Sig/Flakito Route Start Time Stop Time Status Last Admin Dose Admin Hydralazine HCl 10 mg Q6HP PRN IV 01/12/25 18:45 Cancel Ceftriaxone Sodium 50 ml @ 100 mls/hr DAILY@09 IV 01/13/25 09:00 01/15/25 09:24 100 MLS/HR Aspirin 81 mg DAILY PO 01/13/25 10:00 01/15/25 09:25 81 MG Atorvastatin Calcium 20 mg HS PO 01/12/25 22:00 01/15/25 21:16 20 MG Diagnostic Test (Pha) 1 strip ACHS 01/12/25 22:00 01/15/25 22:00 1 STRIP Insulin Human Regular ACHS SC 01/12/25 22:00 01/15/25 21:08 4 UNITS Dextrose 50 ml UD PRN IV 01/12/25 18:45 Sodium Chloride 10 ml Q8HR IV 01/12/25 22:00 01/15/25 23:21 10 ML Acetaminophen/ Hydrocodone Bitart 1 tab Q4HP PRN PO 01/12/25 18:45 01/15/25 23:55 1 TAB Ondansetron HCl 4 mg Q4HP PRN IV 01/12/25 18:45 Cancel Docusate Sodium 100 mg BIDPRN PRN PO 01/12/25 18:45 Cancel Acetaminophen 650 mg Q6HP PRN PO 01/12/25 18:45 01/14/25 16:27 650 MG Nitroglycerin 0.4 mg Q5MINP PRN SL 01/12/25 19:30 Cancel Morphine Sulfate 2 mg Q30M PRN IV 01/12/25 19:30 Cancel Apixaban 5 mg BID PO 01/14/25 10:00 01/15/25 21:16 5 MG Empaglifozin 10 mg DAILY PO 01/14/25 10:00 01/15/25 09:25 10 MG Atenolol 25 mg DAILY PO 01/14/25 10:00 01/15/25 09:26 25 MG Examination General Appearance: Alert, Oriented X3, Cooperative, No acute distress HEENT: Atraumatic, PERRLA, EOMI, Mucous membr. moist/pink Respiratory: Clear to auscultation, Normal air movement Cardiovascular: Normal S1, Normal S2, No murmurs Abdominal: Normal bowel sounds, Soft, No tenderness, No hepatospenomegaly, No masses Extremities: No clubbing, No cyanosis, No edema, Normal pulses, No tenderness/swelling Skin: No rashes, No breakdown, No significant lesion Neuro: Normal speech, Normal tone, Sensation intact, Cranial nerves 3-12 NL, Reflexes 2+, Other (Generalized weakness) Psych/Mental Status: Mental status NL, Mood NL laboratory and microbiology Laboratory Tests 01/14/25 05:38 01/13/25 05:10 Test 01/14/25 05:38 Range/Units Serum Glucose 143 H 74-106 mg/dL Microbiology Date/Time Source Procedure Growth Status 01/12/25 17:08 Voided Urine Urine Culture - Final Escherichia coli Complete Problem List/Assessment/Plan Problem List/Assessment/Plan #Chest pain #Possible stable angina #H/o of valvular leakage? #CAD? #Afib #Hypertensive heart disease with diastolic dysfunction #Complicated UTI #Pulmonary hypertension Plan Diabetic diet Apixaban Aspirin Atorvastatin Ceftriaxone Mild ISS Atenolol 25 mg Jardiance 10 mg 01/14/2025: LVEF 55-60%, LVH. Moderate diastolic dysfunction, Mild left atrial dilation, Mild pulmonary hypertension, mild tricuspid regurgitation, No significant valve disease. 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 Echocardiogram done on this admission does not reveal mitral regurgitation. We will repeat transthoracic echocardiogram to confirm. The patient reports a stress test that was done in 's office last month. We will try and obtain medical records to confirm results of the stress test. 01/15/2025: Repeated ECHO showed similar findings, we are waiting on cardiology clearance after review stress test done in Dr Levine office Case discussed with Dr Ken Serra discussed with: Patient, Other (rn) My Orders My Orders Orders - RED ROLDAN Procedure Category Date Status Time *Consult CONS 01/15/[address]Mukeshchandra López 14:36 RED ROLDAN RESIDENT Jan 16, 2025 04:32
--- NOTE | 2025-01-16 12:05 | DVHPNRES ---
Progress Note Date Seen: Jan 16, 2025 Resident Creating Document: JOSHUA HOGAN KORY Has the PT tested + for MRSA If YES, has PT been informed?: No Medical Necessity Reason Pt with a Central, PICC or Fol: No Subjective Review of Systems Patient seen and examined at bedside. Patient is feeling better since admission but still complaining of left left-sided chest pain Patient reports: No new complaints, Feels better Changes from previous H/P or p: Changes Objective vital signs Vital Sign Date Time Temp Pulse Resp B/P (MAP) Pulse Ox O2 Delivery O2 Flow Rate FiO2 01/16/25 09:54 67 128/75 01/16/25 09:00 98.0 18 95 98.0 01/16/25 08:00 Room Air* 0 21 Total Intake and Output 01/15/25 01/15/25 01/16/25 15:00 23:00 07:00 Intake Total 900 ml 400 ml Output Total 750 ml Balance 150 ml 400 ml medications Current Medications Medications Dose Ordered Sig/Flakito Route Start Time Stop Time Status Last Admin Dose Admin Hydralazine HCl 10 mg Q6HP PRN IV 01/12/25 18:45 Cancel Ceftriaxone Sodium 50 ml @ 100 mls/hr DAILY@09 IV 01/13/25 09:00 01/16/25 09:52 100 MLS/HR Aspirin 81 mg DAILY PO 01/13/25 10:00 01/16/25 09:52 81 MG Atorvastatin Calcium 20 mg HS PO 01/12/25 22:00 01/15/25 21:16 20 MG Diagnostic Test (Pha) 1 strip ACHS 01/12/25 22:00 01/16/25 11:24 1 STRIP Insulin Human Regular ACHS SC 01/12/25 22:00 01/16/25 06:06 2 UNITS Dextrose 50 ml UD PRN IV 01/12/25 18:45 Sodium Chloride 10 ml Q8HR IV 01/12/25 22:00 01/16/25 06:13 10 ML Acetaminophen/ Hydrocodone Bitart 1 tab Q4HP PRN PO 01/12/25 18:45 01/15/25 23:55 1 TAB Ondansetron HCl 4 mg Q4HP PRN IV 01/12/25 18:45 Cancel Docusate Sodium 100 mg BIDPRN PRN PO 01/12/25 18:45 Cancel Acetaminophen 650 mg Q6HP PRN PO 01/12/25 18:45 01/14/25 16:27 650 MG Nitroglycerin 0.4 mg Q5MINP PRN SL 01/12/25 19:30 Cancel Morphine Sulfate 2 mg Q30M PRN IV 01/12/25 19:30 Cancel Apixaban 5 mg BID PO 01/14/25 10:00 01/16/25 09:52 5 MG Empaglifozin 10 mg DAILY PO 01/14/25 10:00 01/16/25 09:52 10 MG Atenolol 25 mg DAILY PO 01/14/25 10:00 01/16/25 09:54 25 MG Examination General Appearance: Alert, Oriented X3, Cooperative, No acute distress HEENT: Atraumatic, PERRLA, EOMI, Mucous membrane moist/pink Respiratory: Clear to auscultation, Normal air movement Cardiovascular: Regular rate, Normal S1, Normal S2, No murmurs, no chest wall tenderness Abdominal: Normal bowel sounds, Soft, No tenderness, No hepatospenomegaly, No masses Extremities: No clubbing, No cyanosis, No edema, Normal pulses, No tenderness/swelling Skin: No rashes, No breakdown, No significant lesion Neuro: Normal gait, Normal speech, Strength at 5/5 X4 ext, Normal tone, Sensation intact, Cranial nerves 3-12 NL, Reflexes 2+ Psych/Mental Status: Mental status NL, Mood NL laboratory and microbiology Laboratory Tests 01/14/25 05:38 01/13/25 05:10 Test 01/14/25 05:38 Range/Units Serum Glucose 143 H 74-106 mg/dL Microbiology Date/Time Source Procedure Growth Status 01/12/25 17:08 Voided Urine Urine Culture - Final Escherichia coli Complete Labs and/or images reviewed: Labs reviewed by me, Image(s) reviewed by me Problem List/Assessment/Plan Problem List/Assessment/Plan #Chest pain #Possible stable angina #H/o of valvular leakage? #CAD? #Afib #Hypertensive heart disease with diastolic dysfunction #Complicated UTI #Pulmonary hypertension Plan Diabetic diet Apixaban Aspirin Atorvastatin Ceftriaxone Mild ISS Atenolol 25 mg Jardiance 10 mg 01/14/2025: LVEF 55-60%, LVH. Moderate diastolic dysfunction, Mild left atrial dilation, Mild pulmonary hypertension, mild tricuspid regurgitation, No significant valve disease. 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 Echocardiogram done on this admission does not reveal mitral regurgitation. We will repeat transthoracic echocardiogram to confirm. The patient reports a stress test that was done in 's office last month. We will try and obtain medical records to confirm results of the stress test. 01/15/2025: Repeated ECHO showed similar findings, we are waiting on cardiology clearance after review stress test done in Dr Levine office Case discussed with Dr Rogers Plan discussed with: Patient, Other (RN) [facility] Jan 16, 2025 12:05
--- NOTE | 2025-01-16 19:45 | DVHPN2 ---
Consult Progress Note Subjective Patient reports: No new complaints, Feels better Objective vital signs Vital Sign Date Time Temp Pulse Resp B/P (MAP) Pulse Ox O2 Delivery O2 Flow Rate FiO2 01/16/25 17:00 98.8 72 18 130/81 (97) 98 98.8 01/16/25 08:00 Room Air* 0 21 Total Intake and Output 01/15/25 01/15/25 01/16/25 15:00 23:00 07:00 Intake Total 900 ml 400 ml Output Total 750 ml Balance 150 ml 400 ml medications Current Medications Medications Dose Ordered Sig/Flakito Route Start Time Stop Time Status Last Admin Dose Admin Hydralazine HCl 10 mg Q6HP PRN IV 01/12/25 18:45 Cancel Ceftriaxone Sodium 50 ml @ 100 mls/hr DAILY@09 IV 01/13/25 09:00 01/16/25 09:52 100 MLS/HR Aspirin 81 mg DAILY PO 01/13/25 10:00 01/16/25 09:52 81 MG Atorvastatin Calcium 20 mg HS PO 01/12/25 22:00 01/15/25 21:16 20 MG Diagnostic Test (Pha) 1 strip ACHS 01/12/25 22:00 01/16/25 17:26 1 STRIP Insulin Human Regular ACHS SC 01/12/25 22:00 01/16/25 17:27 3 UNITS Dextrose 50 ml UD PRN IV 01/12/25 18:45 Sodium Chloride 10 ml Q8HR IV 01/12/25 22:00 01/16/25 13:24 10 ML Acetaminophen/ Hydrocodone Bitart 1 tab Q4HP PRN PO 01/12/25 18:45 01/15/25 23:55 1 TAB Ondansetron HCl 4 mg Q4HP PRN IV 01/12/25 18:45 Cancel Docusate Sodium 100 mg BIDPRN PRN PO 01/12/25 18:45 Cancel Acetaminophen 650 mg Q6HP PRN PO 01/12/25 18:45 01/14/25 16:27 650 MG Nitroglycerin 0.4 mg Q5MINP PRN SL 01/12/25 19:30 Cancel Morphine Sulfate 2 mg Q30M PRN IV 01/12/25 19:30 Cancel Apixaban 5 mg BID PO 01/14/25 10:00 01/16/25 09:52 5 MG Empaglifozin 10 mg DAILY PO 01/14/25 10:00 01/16/25 09:52 10 MG Atenolol 25 mg DAILY PO 01/14/25 10:00 01/16/25 09:54 25 MG Examination: CVS:Normal laboratory and microbiology Laboratory Tests 01/14/25 05:38 01/13/25 05:10 Test 01/14/25 05:38 Range/Units Serum Glucose 143 H 74-106 mg/dL Problem List/Assessment/Plan Problem List/Assessment/Plan Chest pain. CAD. Paroxysmal atrial fibrillation. Hypertensive heart disease. Chronic HFpEF, NYHA class III. Complicated UTI. Pulmonary hypertension. Hypertension. Dyslipidemia. Mild tricuspid regurgitation. Type 2 diabetes mellitus. Plan/Recommendation * The patient underwent an echocardiogram on 12/[address] Leonila Law's office, which demonstrated a left ventricular ejection fraction of 70%. The study revealed severe mitral regurgitation, mild pulmonary regurgitation, and a right ventricular systolic pressure of 47 mmHg. Findings were consistent with mitral valve prolapse involving the mitral valve leaflets. Based on this findings the patient was referred by Dr. Leonila Law to Dr. Luis Glaser in [place] for further evaluation and management including consideration of a mitral clip procedure. The patient reports that she has a follow-up appointment scheduled with Dr. Frank in January for further workup and treatment planning. Plan discussed with: Patient Date of Service: Jan 16, 2025 Billing Provider: DONNELL LWA MD Common Visit Codes: CONSULT ONLY Consultation Codes: [id number] CONSULT <45MIN ESTHER GRIER [employer] Jan 16, 2025 19:45
--- NOTE | 2025-01-16 23:02 | DVHPN2 ---
Progress Note - Dictate Date Seen: Jan 16, 2025 Has the PT tested + for MRSA If YES, has PT been informed?: No Medical Necessity Reason Pt with a Central, PICC or Fol: No Subjective Patient was seen and evaluated in follow up. Patient reports feeling better today. Echocardiogram revealed LVEF 60-65%. BS in the 120's. Telemetry reviewed. vital signs Vital Sign Date Time Temp Pulse Resp B/P (MAP) Pulse Ox O2 Delivery O2 Flow Rate FiO2 01/16/25 13:00 98.4 69 18 135/80 (98) 98 98.4 01/16/25 08:00 Room Air* 0 21 Total Intake and Output 01/15/25 01/15/25 01/16/25 15:00 23:00 07:00 Intake Total 900 ml 400 ml Output Total 750 ml Balance 150 ml 400 ml medications Current Medications Medications Dose Ordered Sig/Flakito Route Start Time Stop Time Status Last Admin Dose Admin Hydralazine HCl 10 mg Q6HP PRN IV 01/12/25 18:45 Cancel Ceftriaxone Sodium 50 ml @ 100 mls/hr DAILY@09 IV 01/13/25 09:00 01/16/25 09:52 100 MLS/HR Aspirin 81 mg DAILY PO 01/13/25 10:00 01/16/25 09:52 81 MG Atorvastatin Calcium 20 mg HS PO 01/12/25 22:00 01/15/25 21:16 20 MG Diagnostic Test (Pha) 1 strip ACHS 01/12/25 22:00 01/16/25 11:24 1 STRIP Insulin Human Regular ACHS SC 01/12/25 22:00 01/16/25 06:06 2 UNITS Dextrose 50 ml UD PRN IV 01/12/25 18:45 Sodium Chloride 10 ml Q8HR IV 01/12/25 22:00 01/16/25 13:24 10 ML Acetaminophen/ Hydrocodone Bitart 1 tab Q4HP PRN PO 01/12/25 18:45 01/15/25 23:55 1 TAB Ondansetron HCl 4 mg Q4HP PRN IV 01/12/25 18:45 Cancel Docusate Sodium 100 mg BIDPRN PRN PO 01/12/25 18:45 Cancel Acetaminophen 650 mg Q6HP PRN PO 01/12/25 18:45 01/14/25 16:27 650 MG Nitroglycerin 0.4 mg Q5MINP PRN SL 01/12/25 19:30 Cancel Morphine Sulfate 2 mg Q30M PRN IV 01/12/25 19:30 Cancel Apixaban 5 mg BID PO 01/14/25 10:00 01/16/25 09:52 5 MG Empaglifozin 10 mg DAILY PO 01/14/25 10:00 01/16/25 09:52 10 MG Atenolol 25 mg DAILY PO 01/14/25 10:00 01/16/25 09:54 25 MG objective GENERAL: Alert and oriented x 3. No acute distress. EYES: PERRL, EOMI. Anicteric. HENT: Moist mucous membranes. LUNGS: Clear to auscultation bilaterally. CARDIOVASCULAR: Irregular rate and rhythm. ABDOMEN: Soft, nontender and nondistended. EXTREMITIES: No edema. NEUROLOGIC: No focal neurological deficits. SKIN: Warm, dry. laboratory and microbiology Laboratory Tests 01/14/25 05:38 01/13/25 05:10 Test 01/14/25 05:38 Range/Units Serum Glucose 143 H 74-106 mg/dL Problem List Chest pain. CAD. Paroxysmal atrial fibrillation. Hypertensive heart disease. Chronic HFpEF, NYHA class III. Complicated UTI. Pulmonary hypertension. Hypertension. Dyslipidemia. Mild tricuspid regurgitation. Type 2 diabetes mellitus. Assessment/Plan Continued all current supportive medical care. Patient has been seen by Anna Tinoco NP on my behalf, her and I discussed the plan with the patient. The patient underwent an echocardiogram on 12/03 with my office, which demonstrated a left ventricular ejection fraction of 70%. The study revealed severe mitral regurgitation, mild pulmonary regurgitation, and a right ventricular systolic pressure of 47 mmHg. Findings were consistent with mitral valve prolapse involving the mitral valve leaflets. Based on this findings the patient was referred by me to Dr. Luis Glaser in [place] for further evaluation and management including consideration of a mitral clip procedure. The patient reports that she has a follow-up appointment scheduled with Dr. Frank in January for further workup and treatment planning. Additional plan as per the hospital course. Plan discussed with: Patient DONNELL SARGENT MD Jan 16, 2025 15:32
[2025-01-17 00:59] VITALS: BP 124/72; PULSE 76; RESP 18; TEMP 98.6; O2SAT 100
[2025-01-17 05:00] VITALS: BP 120/68; PULSE 74; RESP 18; TEMP 98.7; O2SAT 99
[2025-01-17 06:38] LABS: Basophils # (auto) 0 10 ^3/uL (0-0.2); Basophils % (auto) 0.6 % (0.0-2.0); Eosinophils # (auto) 0.1 10 ^3/uL (0-0.8); Eosinophils % (auto) 1.9 % (0.0-7.0); Hematocrit 42.3 % (36.0-46.0); Hemoglobin 14.3 g/dL (12.2-16.2); Lymphocytes # (auto) 1.8 10 ^3/uL (0.4-5.4); Lymphocytes % (auto) 32.7 % (10.0-50.0); Mean Corpuscular Hgb Conc. 33.8 g/dL (32.0-36.0); Mean Corpuscular Volume 88.6 fL (80.0-100.0); Monocytes # (auto) 0.4 10 ^3/uL (0-1.3); Monocytes % (auto) 7.6 % (0.0-12.0); Neutrophils # (auto) 3.2 10 ^3/uL (1.6-8.6); Neutrophils % (auto) 57.2 % (37.0-80.0); Nucleated Red Blood Cells % 0.1 %; Platelet Count (auto) 232 10^3/uL (140-450); Red Blood Cells 4.77 10^6/uL (4.0-5.20); Red Cell Distribution Width 14.5 % (11.8-14.3); White Blood Cell 5.6 10^3/uL (4.4-10.8)
[2025-01-17 06:43] LABS: Chloride 105 mmol/L (98-107); Potassium 3.7 mmol/L (3.5-5.1); Sodium 142 mmol/L (136-145)
[2025-01-17 06:44] LABS: Anion Gap 10 (5-15); Carbon Dioxide 27 mmol/L (20-31)
[2025-01-17 06:45] LABS: Calcium 9.5 mg/dL (8.7-10.4)
[2025-01-17 06:49] LABS: BUN/Creatinine Ratio 24.2 (10.0-20.0); Blood Urea Nitrogen 15 mg/dL (9-23)
[2025-01-17 06:50] LABS: Glucose 149 mg/dL (74-106)
[2025-01-17 08:00] VITALS: PULSE 65
[2025-01-17 09:00] VITALS: BP 135/69; PULSE 66; RESP 15; TEMP 97.9; O2SAT 97
[2025-01-17] MEDS ORDERED: ACET-1079 PO (12:52)
[2025-01-17 13:00] VITALS: BP 122/77; PULSE 68; RESP 17; TEMP 97.6; O2SAT 98
[2025-01-17 14:29] VITALS: BP 126/78; PULSE 66; TEMP 36.4
--- NOTE | 2025-01-17 16:33 | DVHDSRES ---
Discharge Summary Date of Admission Resident Creating Document: RED ROLDAN RESIDENT Jan 12, 2025 at 19:18 Date of Discharge: Jan 17, 2025 Admitting Diagnosis chest pain Labs/Diagnostic Data: Laboratory Results Test 01/17/25 12:23 01/17/25 05:28 01/13/25 05:10 01/12/25 17:08 POC Glucose 160 mg/dl (70-106) White Blood Count 5.6 10^3/uL (4.4-10.8) Red Blood Count 4.77 10^6/uL (4.0-5.20) Hemoglobin 14.3 g/dL (12.2-16.2) Hematocrit 42.3 % (36.0-46.0) Mean Corpuscular Volume 88.6 fL (80.0-100.0) Mean Corpuscular Hemoglobin 30.0 pg (28.0-32.0) Mean Corpuscular Hemoglobin Concent 33.8 g/dL (32.0-36.0) Red Cell Distribution Width 14.5 % (11.8-14.3) Platelet Count 232 10^3/uL (140-450) Mean Platelet Volume 9.1 fL (6.9-10.8) Neutrophils (%) (Auto) 57.2 % (37.0-80.0) Lymphocytes (%) (Auto) 32.7 % (10.0-50.0) Monocytes (%) (Auto) 7.6 % (0.0-12.0) Eosinophils (%) (Auto) 1.9 % (0.0-7.0) Basophils (%) (Auto) 0.6 % (0.0-2.0) Neutrophils # (Auto) 3.2 10 ^3/uL (1.6-8.6) Lymphocytes # (Auto) 1.8 10 ^3/uL (0.4-5.4) Monocytes # (Auto) 0.4 10 ^3/uL (0-1.3) Eosinophils # (Auto) 0.1 10 ^3/uL (0-0.8) Basophils # (Auto) 0 10 ^3/uL (0-0.2) Nucleated Red Blood Cells 0.1 % Sodium Level 142 mmol/L (136-145) Potassium Level 3.7 mmol/L (3.5-5.1) Chloride Level 105 mmol/L (98-107) Carbon Dioxide Level 27 mmol/L (20-31) Anion Gap 10 (5-15) Blood Urea Nitrogen 15 mg/dL (9-23) Creatinine 0.62 mg/dL (0.550-1.02) Glomerular Filtration Rate Calc 99 mL/min (>90) BUN/Creatinine Ratio 24.2 (10.0-20.0) Serum Glucose 149 mg/dL (74-106) Calcium Level 9.5 mg/dL (8.7-10.4) Total Bilirubin 0.6 mg/dL (0.2-1.0) Aspartate Amino Transferase (AST) 17 U/L (<34) Alanine Aminotransferase (ALT) 24 U/L (7-40) Alkaline Phosphatase 97 U/L (46-116) B-Type Natriuretic Peptide 44.49 pg/mL (0-100) Total Protein 6.8 g/dL (5.7-8.2) Albumin 4.0 g/dL (3.2-4.8) Urine Color Yellow (Yellow) Urine Clarity Turbid (Clear) Urine pH 6.0 (5.0-9.0) Urine Specific [place] 1.020 (1.001-1.035) Urine Protein Trace (Negative) Urine Ketones 3+ (Negative) Urine Blood Negative /uL (Negative) Urine Nitrite 2+ (Negative) Urine Bilirubin Negative (Negative) Urine Urobilinogen Normal mg/dL (Negative) Urine Leukocyte Esterase 2+ /uL (Negative) Urine RBC <1 /hpf (0 - 4) Urine Microscopic WBC 33 /HPF (0-5) Urine Squamous Epithelial Cells Few /hpf (<5) Urine Bacteria Few /hpf (None Seen) Urine Hyaline Casts Few /lpf (0 - 2) Urine Mucus Few (None Seen) Urine Yeast (Budding) Occasional /hpf (None Urine Glucose Normal mg/dL (Normal) Test 01/12/25 17:01 Troponin I High Sensitivity 3 ng/L (</=34) Other Laboratory Tests 01/17/25 05:28 Brief Hx & Hospital Course: A 64-year-old woman with PMHx of type 2 DM, HTN, CAD, paroxysmal AFib on apixaban, chronic HFpEF (NYHA III), pulmonary HTN, dyslipidemia and prior reports of severe MR presented on 13 Jan 2025 with two days of worsening exertional chest pain and dyspnea that limited her baseline NYHA II functional status. Initial work-up (serial ECGs, troponins) showed no acute ischemia; transthoracic ECHO on Dec demonstrated LVEF 55-60 %, concentric LVH, mild LA dilation, mild TR, moderate diastolic dysfunction and mild pulmonary hypertension without significant MR; repeat ECHO on Dec was unchanged. Outside records from 03 Dec 2024 had shown severe MR with RVSP 47 mm Hg and mitral valve prolapsehence the patient was already scheduled for outpatient mitral-clip evaluation on 10 Feb 2025 in [place]. During the 5-day hospitalization she remained hemodynamically stable on room air; chest pain improved with medical therapy. She completed a course of IV ceftriaxone for a complicated UTI, received guideline-directed HFpEF therapy (aspirin 81 mg, atorvastatin 20 mg nightly, atenolol 25 mg daily, empagliflozin 10 mg daily, and continued apixaban for AFib. Blood glucose and BP were well controlled on a diabetic diet. Cardiology re-evaluated the patient on Dec and cleared her for discharge, recommending that any additional stress-test or valvular work-up be completed as an outpatient. Case discussed with Dr Rogers Consults/Reason for consult cardiology due to mitral valve regurgitation? Operations or Procedures EXAM: Two-dimensional and M-mode echocardiogram with Doppler and color Doppler. Blood Pressure: 121/60 mmHg INDICATION Chest Pain History of MR RISK FACTORS Height: 5'6", Weight: 154 DIMENSIONS LVDd 4.4 (3.8-5.7cm) LA (2D) 3.6 (1.9-4.0cm) Aortic Root 2.6 (2.0- 3.7cm) LVDs 2.7 (2.5-4.0cm) LA (MM) (1.9-4.0cm) Aortic Cusp Exc 1.4 (1.5- 2.0cm) EF (%) 70.0 (55-70%) Rt. Atrium 3.3 (1.9-4.0cm) Asc. Aorta 3.2 cm IVSd 1.0 (0.7-1.1cm) RV (D) 2.7 (1.8-2.4cm) PWd 0.8 (0.7-1.1cm) Mitral Valve Mitral Mitral Stenosis E wave 0.94m/s MV Mean GR. mmHg A wave 0.73m/s MV Peak GR. mmHg E/A ratio 1.3 2D MVA cm2 DECEL Time 229ms PRESS 1/2 Time ms Aortic Valve Aortic Valve Aortic Stenosis V1 1.08m/s AO Mean GR. 4mmHg V2 1.41m/s AO Peak GR. 8mmHg LVOT Diameter 1.9 (1.8-2.4cm) Doppler BRYCE 2.17cm2 Pulmonic Valve V2 0.71m/s Tricuspid Valve TR Velocity 2.00m/s RVSP 20mmHg Other Information Quality : Technically Limited Rhythm : Technically limited study due to body habitus. Conclusion LVEF 60-65%, mild LVH. Moderate diastolic dysfunction Mild tricuspid regurgitation Mild mitral regurgitation Condition at Discharge: Stable Final Diagnosis/Problems List #Chest pain #Possible stable angina #H/o of valvular leakage? #CAD? 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 Patient was counseled about treatment plan, medications, possible side effects, patientverbalized understanding. All questions were answered to the best of my ability. This discharge took greater then 30 minutes in planning, reviewing documentation, counseling the patient, and discussing with other team members." ASSESSMENT ASSESSMENT Assessment Chest pain RED ROLDAN RESIDENT Jan 17, 2025 16:33
--- NOTE | 2025-01-17 22:53 | DVHPN2 ---
Progress Note - Dictate Date Seen: Jan 17, 2025 Has the PT tested + for MRSA If YES, has PT been informed?: No Medical Necessity Reason Pt with a Central, PICC or Fol: No Subjective Patient was seen and evaluated in follow up. Patient has no new complaints at this time. Patient denies any cardiac symptoms. Patient is cardiac stable for discharge. Telemetry reviewed. vital signs Vital Sign Date Time Temp Pulse Resp B/P (MAP) Pulse Ox O2 Delivery O2 Flow Rate FiO2 01/17/25 14:29 36.4 66 01/17/25 13:00 17 122/77 (92) 98 01/17/25 08:00 Room Air* 0 21 Total Intake and Output 01/16/25 01/16/25 01/17/25 15:00 23:00 07:00 Intake Total 380 ml 1000 ml Balance 380 ml 1000 ml medications Current Medications Medications Dose Ordered Sig/Flakito Route Start Time Stop Time Status Last Admin Dose Admin Hydralazine HCl 10 mg Q6HP PRN IV 01/12/25 18:45 Cancel Ondansetron HCl 4 mg Q4HP PRN IV 01/12/25 18:45 Cancel Docusate Sodium 100 mg BIDPRN PRN PO 01/12/25 18:45 Cancel Nitroglycerin 0.4 mg Q5MINP PRN SL 01/12/25 19:30 Cancel Morphine Sulfate 2 mg Q30M PRN IV 01/12/25 19:30 Cancel objective GENERAL: Alert and oriented x 3. No acute distress. EYES: PERRL, EOMI. Anicteric. HENT: Moist mucous membranes. LUNGS: Clear to auscultation bilaterally. CARDIOVASCULAR: Irregular rate and rhythm. ABDOMEN: Soft, nontender and nondistended. EXTREMITIES: No edema. NEUROLOGIC: No focal neurological deficits. SKIN: Warm, dry. laboratory and microbiology Laboratory Tests 01/17/25 05:28 Test 01/17/25 05:28 Range/Units Serum Glucose 149 H 74-106 mg/dL Problem List Chest pain. CAD. Paroxysmal atrial fibrillation. Hypertensive heart disease. Chronic HFpEF, NYHA class III. Complicated UTI. Pulmonary hypertension. Hypertension. Dyslipidemia. Mild tricuspid regurgitation. Type 2 diabetes mellitus. Assessment/Plan Continued all current supportive medical care. Merlin for pain management. Eliquis. Aspirin, Lipitor. Atenolol. IV antibiotics as ordered. Additional plan as per the hospital course. Plan discussed with: Patient DONNELL SARGENT MD Jan 17, 2025 15:55
== END 2025-01-17 15:45 | disposition home or self-care (01) | DRG 463 ==
LOC: EDBD 13:35 → EDUNIT# 13:35 → ER 13:35 → OVERFLOW 19:18 → TELE-WESTW 22:18
PROVIDERS: ADMIT Student in an Organized Health Care Education/Training Program; ATTEND Emergency Medicine
DX: N30.00 Acute cystitis without hematuria (principal); I27.20 Pulmonary hypertension, unspecified; I50.32 Chronic diastolic (congestive) heart failure; I11.0 Hypertensive heart disease with heart failure; I25.118 Atherosclerotic heart disease of native coronary artery with other forms of angina pectoris; I34.1 Nonrheumatic mitral (valve) prolapse; I34.0 Nonrheumatic mitral (valve) insufficiency; E11.9 Type 2 diabetes mellitus without complications; I48.0 Paroxysmal atrial fibrillation; E78.5 Hyperlipidemia, unspecified; Z90.710 Acquired absence of both cervix and uterus; Z82.49 Family history of ischemic heart disease and other diseases of the circulatory system; Z79.01 Long term (current) use of anticoagulants; Z88.6 Allergy status to analgesic agent; Z79.84 Long term (current) use of oral hypoglycemic drugs; Z79.899 Other long term (current) drug therapy; Z79.82 Long term (current) use of aspirin
CPT/HCPCS: 36415; 71045; 80048; 80053; 81001; 82962; 83880; 84484; 85025; 87086; 87088; 87186; 93005; 93306; 96365; 99291; G0378; J1815

== ENCOUNTER 2025-05-02 08:54 | Inpatient (IN) | payer MEDICAID ==
[~2025-05-02] VITALS: Ht 152.4 cm; Wt 61.5 kg
[~2025-05-02 08:54] MED LIST changes: +ACET-1079 PO; -ASPI-543 PO; -ATEN-60 PO; +ATOR20TA50 PO; -DILT60TA PO; +EMPA1TAB3 PO; -METF-370 PO
--- NOTE | 2025-05-02 09:14 | ED.PDOC ---
HPI Comments 64-year-old female who comes in with chief complaint of chest pain and shortness a breath. The patient states that she had heart valve surgery for a leaky valve done on 04/21 at [facility] in [place]. She states that at approximately 3:30 a.m. in the morning she developed some chest pain and shortness a breath. She states that the pain is pressure-like and she rates it as a 10/10. There has been no nausea, vomiting or diarrhea. The patient denies any fever or chi lls. She has a history of cardiac events in the past. Chief Complaint: Chest Pain Time Seen by MD: 09:00 Primary Care Provider: ARIE Reviewed Notes: Nurses Notes, Medications, Allergies (No allergies to medications) Allergies: Coded Allergies: NO KNOWN ALLERGIES (Unverified , 05/02/25) Home Meds Active Scripts Acetaminophen (Tylenol) 325 Mg Tb, 325 MG PO TID for 10 Days, #30 TAB Prov:RED ROLDAN 01/17/25 Apixaban Base (ELIQUIS) 5 Mg Tab, 5 MG PO BID, #90 TAB Prov:CHRISTINE MENA MD 03/23/22 Reported Medications Atenolol (Atenolol) 50 Mg Tab, 1 TAB PO DAILY for 90 Days, #90 01/15/25 Omeprazole (Omeprazole Dr) 20 Mg Cap, 1 CAP PO DAILY for 90 Days, #90 01/15/25 Tirzepatide (Mounjaro) 5 Mg/0.5 Ml Inj, 5 MG SC QWEEKLY for 28 Days, #2 01/15/25 Diltiazem Hcl (Dilt-Xr) 120 Mg Cap, 1 CAP PO DAILY for 90 Days, #90 01/15/25 Atorvastatin Calcium (ATORVASTATIN CALCIUM) 20 Mg Tab, 1 TAB PO DAILY, #30 TAB 5 Refills 01/12/25 Empagliflozin (Jardiance) 25 Mg Tab, 25 MG PO DAILY, TAB 01/12/25 Nitroglycerin (NTROSTAT SUBLINGUAL) 0.4 Mg Sl, 0.4 MG SL PRN, TAB *MAY REPEAT EVERY 5 MINUTES X 3 TOTAL IF NO RELIEF, INITIATE ANALGESIC THERAPY. NOTIFY PHYSICIAN *Do not crush. 03/23/22 Information Source: Patient Mode of Arrival: Ambulatory Severity: Moderate Timing: Hours Duration: Since onset Prehospital treatment: None Location: Substernal Radiation: No Radiation Quality: Pressure Onset: At Rest Cardiac Risk Factors: Family History, HTN, Diabetes PE Risk Factors: None History of: Similar pain in past Modifying Factors: Nothing Associated Signs and Symptoms: SOB, Other (History of productive cough) Past Medical History PAST MEDICAL HISTORY: AFIB, CAD, DM, HTN Surgical History: , Hysterectomy, Tonsillectomy BRANCH BANKER History: No Pertinent BRANCH BANKER History Family History Family History: Family hx of heart markel, Family hx of HTN Social History Smoker: Non-Smoker Alcohol: Denies ETOH Use Drugs: Denies Drug Use Lives In: Home Constitutional: denies: chills, diaphoresis, fatigue, fever, malaise, sweats, weakness, others EENTM: denies: blurred vision, double vision, ear bleeding, ear discharge, ear drainage, ear pain, ear ringing, eye pain, eye redness, hearing loss, mouth pain, mouth swelling, nasal discharge, nose bleeding, nose congestion, nose pain, photophobia, tearing, throat pain, throat swelling, voice changes, others Respiratory: reports: cough, shortness of breath; denies: hemoptysis, orthopnea, SOB at rest, SOB with excertion, stridor, wheezing, others Cardiovascular: reports: chest pain; denies: dizzy spells, diaphoresis, Dyspnea on exertion, edema, irregular heart beat, left arm pain, lightheadedness, palpitations, PND, syncope, others Gastrointestinal: denies: abdomen distended, abdominal pain, blood streaked bowels, constipated, diarrhea, dysphagia, difficulty swallowing, hematemesis, melena, nausea, poor appetite, poor fluid intake, rectal bleeding, rectal pain, vomiting, others Genitourinary: denies: abnormal vagina bleeding, burning, dyspareunia, dysuria, flank pain, frequency, hematuria, incontinence, pain, , vagina discharge, urgency, others Neurological: denies: dizziness, fainting, headache, left sided numbness, left sided weakness, numbness, paresthesia, pre-existing deficit, right sided numbness, right sided weakness, seizure, speech problems, tingling, tremors, weakness, others Musculoskeletal: denies: back pain, gout, joint pain, joint swelling, muscle pain, muscle stiffness, neck pain, others Integumetry: denies: bruises, change in color, change in hair/nails, dryness, laceration, lesions, lumps, rash, wounds, others Allergic/Immunocompromised: denies: Difficulty Healing, Frequent Infections, Hives, Itching, others Hematologic/Lymphatic: denies: anemia, blood clots, easy bleeding, easy bruising, swollen glands, others Endocrine: denies: excessive hunger, excessive sweating, excessive thirst, excessive urination, flushing, intolerance to cold, intolerance to heat, unexplained weight gain, unexplained weight loss, others Psychiatric: reports: others (Insomnia); denies: anxiety, bipolar disorder, depression, hopeless, panic disorder, schizophrenia, sleepless, suicidal Physical Exam General Appearance: Moderate Distress HEENT: Normal ENT Inspection, Pharynx Normal, TMs Normal Neck: Full Range of Motion, Non-Tender, Normal, Normal Inspection Respiratory: Chest Non-Tender, Lungs Clear, No Accessory Muscle Use, No Respiratory Distress, Normal Breath Sounds Cardiovascular: No Edema, No JVD, No Murmur, No Gallop, Tachycardia Breast Exam: Deferred Gastrointestinal: No Organomegaly, Non Tender, No Pulsatile Mass, Normal Bowel Sounds, Soft Genitalia: Deferred Pelvic: Deferred Rectal: Deferred Extremities: No calf tenderness, Normal capillary refill, Normal inspection, Normal range of motion, Non-tender, No pedal edema Musculoskeletal : Apperance: Normal 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 Was a procedure done?: No CP Differential Dx Differential Diagnosis: Angina, Electrolyte Disorder, RI, Pulmonary Embolus Differential Diagnosis: CHF Differential Diagnosis: Pericarditis X-Ray, Labs, Meds, VS Vital Signs Date Time Temp Pulse Resp B/P (MAP) Pulse Ox O2 Delivery O2 Flow Rate FiO2 05/02/25 12:10 78 05/02/25 10:35 68 16 96 Room Air 05/02/25 10:35 98.7 64 16 117/82 (94) 96 98.7 05/02/25 10:05 86 05/02/25 09:14 103 05/02/25 09:03 103 05/02/25 08:56 98.0 109 16 152/81 94 98.0 Lab Test 05/02/25 10:17 05/02/25 10:03 05/02/25 09:14 Range/Units Troponin I High Sensitivity 4 5 </=34 ng/L Urine Color Light-yellow Yellow Urine Clarity Clear Clear Urine pH 5.5 5.0-9.0 Urine Specific [place] 1.007 1.001-1.035 Urine Protein Negative Negative Urine Ketones Negative Negative Urine Blood Negative Negative /uL Urine Nitrite Negative Negative Urine Bilirubin Negative Negative Urine Urobilinogen Normal Negative mg/dL Urine Leukocyte Esterase 1+ Negative /uL Urine RBC 1 0 - 4 /hpf Urine Microscopic WBC 2 0-5 /HPF Urine Squamous Epithelial Cells Few <5 /hpf Urine Bacteria Few H None Seen /hpf Urine Glucose 3+ H Normal mg/dL White Blood Count 8.0 4.4-10.8 10^3/uL Red Blood Count 4.42 4.0-5.20 10^6/uL Hemoglobin 13.7 12.2-16.2 g/dL Hematocrit 40.5 36.0-46.0 % Mean Corpuscular Volume 91.7 80.0-100.0 fL Mean Corpuscular Hemoglobin 31.0 28.0-32.0 pg Mean Corpuscular Hemoglobin Concent 33.8 32.0-36.0 g/dL Red Cell Distribution Width 14.3 11.8-14.3 % Platelet Count 233 140-450 10^3/uL Mean Platelet Volume 9.2 6.9-10.8 fL Neutrophils (%) (Auto) 74.7 37.0-80.0 % Lymphocytes (%) (Auto) 17.8 10.0-50.0 % Monocytes (%) (Auto) 5.6 0.0-12.0 % Eosinophils (%) (Auto) 1.3 0.0-7.0 % Basophils (%) (Auto) 0.6 0.0-2.0 % Neutrophils # (Auto) 6.0 1.6-8.6 10 ^3/uL Lymphocytes # (Auto) 1.4 0.4-5.4 10 ^3/uL Monocytes # (Auto) 0.4 0-1.3 10 ^3/uL Eosinophils # (Auto) 0.1 0-0.8 10 ^3/uL Basophils # (Auto) 0 0-0.2 10 ^3/uL Nucleated Red Blood Cells 0.0 % D-Dimer, Quantitative 0.34 0.0-0.49 mg/L FEU Sodium Level 141 136-145 mmol/L Potassium Level 4.0 3.5-5.1 mmol/L Chloride Level 106 98-107 mmol/L Carbon Dioxide Level 26 20-31 mmol/L Anion Gap 9 5-15 Blood Urea Nitrogen 17 9-23 mg/dL Creatinine 0.59 0.550-1.02 mg/dL Glomerular Filtration Rate Calc 101 >90 mL/min BUN/Creatinine Ratio 28.8 H 10.0-20.0 Serum Glucose 172 H 74-106 mg/dL Calcium Level 8.7 8.7-10.4 mg/dL B-Type Natriuretic Peptide 256.17 0-100 pg/mL Current Medications Medications (Trade) Dose Ordered Sig/Flakito Route Start Time Stop Time Status Last Admin Aspirin 162 mg ONCE ONCE PO 05/02/25 09:15 05/02/25 09:16 DC 05/02/25 10:05 IV Hep-Lock was established The patient's CBC is within normal limits. The patient was given aspirin 162 mg by mouth The patient's CBC is within normal limits The chemistry panel is within normal limits The BNP is elevated at 256.17 The urine test is positive for 1+ leukocytes The WBCs in the urine are also elevated The patient is being started on Rocephin 1 g IV piggyback The patient is being admitted at this time The chest x-ray shows IMPRESSION: 1. Hazy bilateral opacities which may reflect atypical infection or pulmonary edema. The patient is being admitted The patient is also given Lasix 40 mg IV push Images Reviewed?: Images reviewed and evaluated by me Time of 1ST Reevaluation: 09:13 Reevaluation 1ST: Unchanged Patient Education/Counseling: Diagnosis, Treatment, Prognosis Family Education/Counseling: No Family Present SEPSIS Sepsis Screen Date sepsis recognized/suspect: May 02, 2025 Time Sepsis recognized/suspect: 0858 Recent Procedure: No On Antibiotic Therapy: No Respiratory Rate >20: No Heart Rate >90: No Temp<36 C (96.8 F) or >38.3 C: No SBP <90 or MAP <65 mmHG: No New Acute Mental Status Change: No Is the patient on CPAP, BIPAP,: No Physician Orders Troponin-I Hs (05/02/25 12:00) Electrocardigram (05/02/25 12:00) Heplock Iv (05/02/25 09:08) Linen Controller (05/02/25 09:08) Blood Pressure (05/02/25 09:08) Pulse Oximetry (05/02/25 09:08) Chest Xray 1 View (05/02/25 09:08) Vital Signs Date Time Temp Pulse Resp B/P (MAP) Pulse Ox O2 Delivery O2 Flow Rate FiO2 05/02/25 12:10 78 05/02/25 10:35 68 16 96 Room Air 05/02/25 10:35 98.7 64 16 117/82 (94) 96 98.7 05/02/25 10:05 86 05/02/25 09:14 103 05/02/25 09:03 103 05/02/25 08:56 98.0 109 16 152/81 94 98.0 Laboratory Tests Test 05/02/25 09:14 White Blood Count 8.0 10^3/uL (4.4-10.8) Medications Medications Dose Ordered Sig/Flakito Route Start Time Stop Time Status Last Admin Dose Admin Aspirin 162 mg ONCE ONCE PO 05/02/25 09:15 05/02/25 09:16 DC 05/02/25 10:05 Departure 1 Departure Time of Disposition: 09:49 Impression: Primary Impression: Acute chest pain Additional Impressions: Acute myocardial ischemia Acute on chronic diastolic heart failure Disposition: ADMITTED INPATIENT Admit to: Tele Condition: Fair Critical Care Note Critical Care Time?: Yes (45 min-critical care time only) Stability Stability form required: Yes Unstable for transfer: Telemetry monitoring (Telemetry monitoring required), ED Physician Assesment (Clinical assesment) Heart Score Heart Score: Heart Score Response (Comments) Value History Moderate Suspicious 1 EKG Repolarization Disturb 1 Age 45-64 1 Risk Factors >3 or Hx ASHD 2 Troponin Normal limit 0 Total 5 ARACELIS SMITH MD May 02, 2025 09:14
[2025-05-02 09:35] LABS: Hematocrit 40.5 % (36.0-46.0); Hemoglobin 13.7 g/dL (12.2-16.2); Mean Corpuscular Hemoglobin 31.0 pg (28.0-32.0); Mean Corpuscular Volume 91.7 fL (80.0-100.0); Nucleated Red Blood Cells % 0.0 %
--- NOTE | 2025-05-02 09:54 | DVH ---
CHEST RADIOGRAPH Indication: cp and sob Technique: Single frontal view of the chest was obtained Comparison: XY CHEST PORTABLE on DOS: 01/12/25 FINDINGS: Lines and Tubes: None Lungs: Hazy bilateral opacities. Pleura: No effusion. No pneumothorax. Cardiomediastinal contours: Unremarkable Bones: No acute osseous abnormality. IMPRESSION: 1. Hazy bilateral opacities which may reflect atypical infection or pulmonary edema.
--- NOTE | 2025-05-02 10:06 | ECG ---
[facility] Test Date: 2025-05-02 Test Time: 10:05:34 Pat Name: JAMIE BAIN Department: Room: 0287T Gender: F [employer]: : 1960 Requested By: ARACELIS SMITH Order Number: [id number] Reading MD: Mathieu Hernandez Measurements Intervals [place] Rate: 86 P: 76 IL: 160 QRS: 79 QRSD: 74 T: 50 QT: 342 QTc: 409 Interpretive Statements Sinus rhythm Anterior infarct, old Electronically Signed On 05-08-2025 20:20:39 PDT by Mathieu Hernandez Please click the below link to view image of tracing.
[2025-05-02 10:22] LABS: Chloride 106 mmol/L (98-107); Potassium 4.0 mmol/L (3.5-5.1); Sodium 141 mmol/L (136-145)
[2025-05-02 10:23] LABS: Anion Gap 9 (5-15); Carbon Dioxide 26 mmol/L (20-31)
[2025-05-02 10:24] LABS: Calcium 8.7 mg/dL (8.7-10.4)
[2025-05-02 10:28] LABS: BUN/Creatinine Ratio 28.8 (10.0-20.0); Blood Urea Nitrogen 17 mg/dL (9-23)
[2025-05-02 10:30] LABS: Glucose 172 mg/dL (74-106)
[2025-05-02 10:57] LABS: Urine Protein, UAD Negative (Negative)
--- NOTE | 2025-05-02 12:11 | ECG ---
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
--- NOTE | 2025-05-02 13:52 | ECG ---
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
[2025-05-02] MEDS ORDERED: NITROGLYCERIN 0.4 MG SL TAB SL PRN (14:00)
[2025-05-02] MEDS ORDERED: ONDANSETRON HCL 4 MG/2 ML VIAL IV PRN (14:00)
[2025-05-02 14:25] VITALS: BP 143/79; PULSE 84; RESP 16; TEMP 98.2; O2SAT 97
[2025-05-02] MEDS ORDERED: MORPHINE SULFATE 4 MG/ML SYR/VIAL IV PRN (14:45)
[2025-05-02] MEDS ORDERED: DEXTROSE (50%) 50ML SYRG IV PRN (14:45)
--- NOTE | 2025-05-02 14:46 | DVHHPRES ---
History of Present Illness Resident Creating Document: HUSSAIN RASCON RESIDENT History of Present Illness Janet Bowen is a 64-year-old femaleWith a PMH of CHF, AFib, CAD, HLD, type 2 DM presented to the ED with the chief complaints of shortness of breath and chest pain. Patient reported chest pain started yesterday while she was sleeping and woke her up. She describes pain initially being located in mid chest area and when she takes deep breath it is radiating to her back which is 10/10 intensity but currently 7/10 described as intermittent, worse since with the activity assoc iated with difficulty breathing. Patient reported recently underwent cardiac surgery 10 days ago at [place] for leaky valve and then after the procedure she was seen by Dr. Law her pyrotechnic assembler on Saturday and at that time she did not have any symptoms. PMH: CHF, AFib, CAD, HLD, type 2 DM, PSH: , hysterectomy, tonsillectomy, heart valve surgery on 04/21 Family history: Reviewed, noncontributory Social history: Lives at home. Denies smoking, alcohol and other drug abuse Allergies: No known allergies Home medications: Jardiance 25 mg, atenolol 50 mg, magnesium oxide 400 mg, Mounjaro, diltiazem XR 120, Lantus, omeprazole 20, Lipitor 20, Eliquis 5 mg Patient seen and examined at the bedside. Cardiovascular system positive for chest pain and shortness of breath. Rest of ROS is negative Review of Systems Allergies: Coded Allergies: NO KNOWN ALLERGIES (Unverified , 05/02/25) Medications Current Medications Medications Dose Ordered Sig/Flakito Route Start Time Stop Time Status Last Admin Dose Admin Sodium Chloride 10 ml Q8HR IV 05/02/25 14:00 Ondansetron HCl 4 mg Q4HP PRN IV 05/02/25 14:00 Acetaminophen 650 mg Q6HP PRN PO 05/02/25 14:00 Morphine Sulfate 2 mg Q4HPRN PRN IV 05/02/25 14:45 Nitroglycerin 0.4 mg Q5MINP PRN SL 05/02/25 14:00 Morphine Sulfate 2 mg Q30M PRN IV 05/02/25 14:45 Exam Vital Signs Vital Signs Date Time Temp Pulse Resp B/P (MAP) Pulse Ox O2 Delivery O2 Flow Rate FiO2 05/02/25 13:13 98.0 72 16 140/81 (100) 97 98.0 05/02/25 10:35 Room Air Exam Pt is lying on bed General Appearance: Alert, Oriented X3, Cooperative, Not in acute distress HEENT: Atraumatic, Mucous membranes moist/pink Respiratory: Clear to auscultation, Normal air movement, No added sounds Cardiovascular: Regular rate, Normal S1, Normal S2, No murmurs Abdominal: Active bowel sounds, Soft, no distention, no tenderness Extremities: Trace edema, Normal pulses, No tenderness/swelling Skin: No Significant rash, except past surgical scars Neuro: Normal speech, sensorimotor deficits none Psych/Mental Status: Mental status NL, Mood NL Nurse was there as administrative library assistant during examination Labs/Xrays Labs Test 05/02/25 10:17 05/02/25 10:03 05/02/25 09:14 Range/Units Troponin I High Sensitivity 4 </=34 ng/L Urine Color Light-yellow Yellow Urine Clarity Clear Clear Urine pH 5.5 5.0-9.0 Urine Specific [place] 1.007 1.001-1.035 Urine Protein Negative Negative Urine Ketones Negative Negative Urine Blood Negative Negative /uL Urine Nitrite Negative Negative Urine Bilirubin Negative Negative Urine Urobilinogen Normal Negative mg/dL Urine Leukocyte Esterase 1+ Negative /uL Urine RBC 1 0 - 4 /hpf Urine Microscopic WBC 2 0-5 /HPF Urine Squamous Epithelial Cells Few <5 /hpf Urine Bacteria Few H None Seen /hpf Urine Glucose 3+ H Normal mg/dL White Blood Count 8.0 4.4-10.8 10^3/uL Red Blood Count 4.42 4.0-5.20 10^6/uL Hemoglobin 13.7 12.2-16.2 g/dL Hematocrit 40.5 36.0-46.0 % Mean Corpuscular Volume 91.7 80.0-100.0 fL Mean Corpuscular Hemoglobin 31.0 28.0-32.0 pg Mean Corpuscular Hemoglobin Concent 33.8 32.0-36.0 g/dL Red Cell Distribution Width 14.3 11.8-14.3 % Platelet Count 233 140-450 10^3/uL Mean Platelet Volume 9.2 6.9-10.8 fL Neutrophils (%) (Auto) 74.7 37.0-80.0 % Lymphocytes (%) (Auto) 17.8 10.0-50.0 % Monocytes (%) (Auto) 5.6 0.0-12.0 % Eosinophils (%) (Auto) 1.3 0.0-7.0 % Basophils (%) (Auto) 0.6 0.0-2.0 % Neutrophils # (Auto) 6.0 1.6-8.6 10 ^3/uL Lymphocytes # (Auto) 1.4 0.4-5.4 10 ^3/uL Monocytes # (Auto) 0.4 0-1.3 10 ^3/uL Eosinophils # (Auto) 0.1 0-0.8 10 ^3/uL Basophils # (Auto) 0 0-0.2 10 ^3/uL Nucleated Red Blood Cells 0.0 % D-Dimer, Quantitative 0.34 0.0-0.49 mg/L FEU Sodium Level 141 136-145 mmol/L Potassium Level 4.0 3.5-5.1 mmol/L Chloride Level 106 98-107 mmol/L Carbon Dioxide Level 26 20-31 mmol/L Anion Gap 9 5-15 Blood Urea Nitrogen 17 9-23 mg/dL Creatinine 0.59 0.550-1.02 mg/dL Glomerular Filtration Rate Calc 101 >90 mL/min BUN/Creatinine Ratio 28.8 H 10.0-20.0 Serum Glucose 172 H 74-106 mg/dL Calcium Level 8.7 8.7-10.4 mg/dL B-Type Natriuretic Peptide 256.17 0-100 pg/mL SEPSIS Sepsis Screen Date sepsis recognized/suspect: May 02, 2025 Time Sepsis recognized/suspect: 857 Recent Procedure: No On Antibiotic Therapy: No Respiratory Rate >20: No Heart Rate >90: No Temp<36 C (96.8 F) or >38.3 C: No SBP <90 or MAP <65 mmHG: No New Acute Mental Status Change: No Is the patient on CPAP, BIPAP,: No Physician Orders Heplock Iv (05/02/25 09:08) Retarder Operator (05/02/25 09:08) Blood Pressure (05/02/25 09:08) Pulse Oximetry (05/02/25 09:08) Chest Xray 1 View (05/02/25 09:08) Admit (05/02/25 13:55) Allergies (05/02/25 13:55) Code Status (05/02/25 13:55) Sodium Chloride Lock (Saline Lock Ns) (05/02/25 14:00) Ondansetron Hcl (Zofran) (05/02/25 14:00) Complete Blood Count (05/03/25 04:00) Comprehensive Metabolic Panel (05/03/25 04:00) Cardiac Diet-2gna,Lofat,Lochol (05/02/25 Dinner) Condition: Fair (05/02/25 13:55) Acetaminophen Tablet (Tylenol Tablet) (05/02/25 14:00) Nitroglycerin Sublingual (Ntrostat Subli (05/02/25 14:00) Oxygen By Nasal Cannula (05/02/25 13:55) Stat Ekg For Chest Pain (05/02/25 13:55) Notify Of Changes From Base (05/02/25 13:55) Meal Temperer For 24 Hours (05/02/25 13:55) Emergency Dysrhythmia Protocol (05/02/25 13:55) Rhythm Strips Once Every Shift (05/02/25 13:55) Morphine Sulfate Injection (05/02/25 14:45) Morphine Sulfate Injection (05/02/25 14:45) * Cardiology Consult (05/02/25 14:31) Echo 2d Mode Cardiac Dop (05/02/25 14:31) Covid19 Antigen Alexandra (05/02/25 14:31) Drug Screen (05/02/25 14:31) Hemoglobin A1c (05/02/25 14:31) Hepatic Panel (05/02/25 14:31) Magnesium (05/02/25 14:31) Rapid Influenza A&B (05/02/25 14:31) Apixaban (Eliquis) (05/02/25 22:00) Atorvastatin (Lipitor) (05/03/25 10:00) (Nf) Atenolol (05/03/25 10:00) (Nf) Empagliflozin (Jardiance) (05/03/25 10:00) Aspirin Tablet (05/03/25 10:00) Glucose Blood (Accu-Chek Comfort Curve T (05/02/25 17:00) Insulin R (Human) (Insulin R) (05/02/25 17:00) Dextrose 50% Syringe (05/02/25 14:45) Vital Signs Date Time Temp Pulse Resp B/P (MAP) Pulse Ox O2 Delivery O2 Flow Rate FiO2 05/02/25 13:13 98.0 72 16 140/81 (100) 97 98.0 05/02/25 12:10 78 05/02/25 10:35 68 16 96 Room Air 05/02/25 10:35 98.7 64 16 117/82 (94) 96 98.7 05/02/25 10:05 86 05/02/25 09:14 103 05/02/25 09:03 103 05/02/25 08:56 98.0 109 16 152/81 94 98.0 Laboratory Tests Test 05/02/25 09:14 White Blood Count 8.0 10^3/uL (4.4-10.8) Medications Medications Dose Ordered Sig/Flakito Route Start Time Stop Time Status Last Admin Dose Admin Aspirin 162 mg ONCE ONCE PO 05/02/25 09:15 05/02/25 09:16 DC 05/02/25 10:05 162 MG Assessment/Plan Assessment/Plan # Chest pain r/o ACS, unstable angina # CAD - telemetry - EKG - troponins - chest pain protocol with morphine and nitroglycerin - aspirin, Lipitor - consulted Dr. Law # Possible Acute on Chronic HFpEF, NYHA class III # Hypertensive heart disease with a diastolic dysfunction # Pulmonary hypertension. - echo on 01/14/2025 showed LVEF 55-60%, LVH. Moderate diastolic dysfunction, mild TR and MR, mild pulmonary hypertension - elevated BNP - resumed atenolol and Jardiance - echocardiogram - consulted Dr. Law # Paroxysmal A fib with a 2 hypercoagulable state, NSR now - telemetry - atenolol 25 mg - continue Eliquis # Dyslipidemia - continue Lipitor # Type 2 diabetes mellitus. - A1c - mild sliding scale GI PPX: Protonix VTE ppx: Eliquis Diet: Cardiac Goals of care addressed with the patient for more than 27 minutes: Full code status Case discussed with Dr. Patel ,patient and nurse Plan discussed with: Patient My Orders Orders - HUSSAIN RASCON RESIDENT Procedure Category Date Status Time Admit ADMIT 05/02/25 Transmitted 13:55 Allergies SOLO 05/02/25 In Process 13:55 Code Status CODE 05/02/25 Transmitted 13:55 Sodium Chloride Lock PHA 05/02/25 In Process (Saline Lock Ns) 14:00 Ondansetron Hcl PHA 05/02/25 In Process (Zofran) 14:00 Complete Blood Count LAB 05/03/25 Verified 04:00 Comprehensive LAB 05/03/25 Verified Metabolic Panel 04:00 Cardiac DIET 05/02/25 Transmitted Diet-2gna,Lofat,Lochol Dinner Condition: Fair SOLO 05/02/25 In Process 13:55 Acetaminophen Tablet PHA 05/02/25 In Process (Tylenol Tablet) 14:00 Nitroglycerin PHA 05/02/25 In Process Sublingual (Ntrostat 14:00 Oxygen By Nasal RT 05/02/25 Transmitted Cannula 13:55 Stat Ekg For Chest SOLO 05/02/25 In Process Pain 13:55 Notify Of Changes SOLO 05/02/25 In Process From Base 13:55 Meal Temperer For [facility] 05/02/25 In Process 24 Hours 13:55 Emergency Dysrhythmia [facility] 05/02/25 In Process Protocol 13:55 Rhythm Strips Once [facility] 05/02/25 In Process Every Shift 13:55 Morphine Sulfate PHA 05/02/25 In Process Injection 14:45 Morphine Sulfate PHA 05/02/25 In Process Injection 14:45 * Cardiology Consult CONS 05/02/25 Transmitted 14:31 Echo 2d Mode Cardiac US 05/02/25 Logged DOP 14:31 Covid19 Antigen Alexandra LAB 05/02/25 Logged 14:31 Drug Screen LAB 05/02/25 Logged 14:31 Hemoglobin A1c LAB 05/02/25 In Process 14:31 Hepatic Panel LAB 05/02/25 In Process 14:31 Magnesium LAB 05/02/25 In Process 14:31 Rapid Influenza A&B LAB 05/02/25 Logged 14:31 Apixaban (Eliquis) PHA 05/02/25 Logged 22:00 Atorvastatin (Lipitor) PHA 05/03/25 Logged 10:00 (Nf) Atenolol PHA 05/03/25 Logged 10:00 (Nf) Empagliflozin PHA 05/03/25 Logged (Jardiance) 10:00 Aspirin Tablet PHA 05/03/25 Logged 10:00 Glucose Blood PHA 05/02/25 In Process (Accu-Chek Comfort 17:00 Insulin R (Human) PHA 05/02/25 In Process (Insulin R) 17:00 Dextrose 50% Syringe PHA 05/02/25 In Process 14:45 HUSSAIN RASCON RESIDENT May 02, 2025 14:46
[2025-05-02 14:56] LABS: Albumin 4.2 g/dL (3.2-4.8); Magnesium 1.8 mg/dL (1.6-2.6); Total Protein 7.1 g/dL (5.7-8.2)
[2025-05-02 14:57] LABS: Alanine Aminotransferase 41.0 U/L (7-40); Alkaline Phosphatase 136.0 U/L (46-116); Bilirubin, Total 0.3 mg/dL (0.2-1.0)
[2025-05-02 15:13] LABS: Bilirubin, Direct 0.1 mg/dL (<0.3)
[2025-05-02 15:21] VITALS: BP 95/58; PULSE 85; RESP 16; TEMP 98.2; O2SAT 94
[2025-05-02] MEDS: FUROSEMIDE 40 MG/4 ML VIAL IV SCH (15:48)
[2025-05-02] MEDS: SODIUM CHLOR 0.9% PF (SALINE LOCK) 10ML VIAL/SYR IV SCH (15:48)
[2025-05-02] MEDS: InsuLIN REG 1unit/0.01ml Soln (100units/ml) SC SCH (17:18)
[2025-05-02] MEDS: ACCU-CHEK COMFORT CURVE STRIP VI SCH (17:18)
[2025-05-02 17:30] VITALS: BP 146/89; PULSE 86; RESP 18; TEMP 97.1; O2SAT 96
[2025-05-02 17:50] VITALS: PULSE 82; RESP 18; O2SAT 98
[2025-05-02 20:00] VITALS: PULSE 97
[2025-05-02 20:56] LABS: Amphetamine Screen, Urine Neg (NEGATIVE); Barbiturate Scree,Urine Neg (NEGATIVE); Benzodiazephine Screen, Urine Neg (NEGATIVE); Cocaine Screen, Urine Neg (NEGATIVE)
[2025-05-02 21:00] VITALS: BP 140/88; PULSE 86; RESP 17; TEMP 97.9; O2SAT 95
[2025-05-02 21:00] LABS: Cannabinoid Screen, Urine Neg (NEGATIVE); Opiate Scree,Urine Neg (NEGATIVE); Phencyclidine Screen, Urine Neg (NEGATIVE)
[2025-05-02] MEDS: APIXABAN 5 MG TAB PO SCH (22:13)
[2025-05-02] MEDS: ATORVASTATIN 20 MG TAB PO SCH (22:14)
[2025-05-02] MEDS: MORPHINE SULFATE 4 MG/ML SYR/VIAL IV PRN (22:16)
[2025-05-03] VITALS (8 sets, daily range): BP systolic 105–139; BP diastolic 67–85; PULSE 61–93; RESP 16–18; TEMP 97.8–98.2; O2SAT 94–97
--- NOTE | 2025-05-03 00:18 | DVHINCON2 ---
Date of service: May 02, 2025 Referring Physician Gabe Reason for Consultation Exertional chest pain, S/p valve surgery 04/21 History of Present Illness This is a 64-year-old female with a PMH of AFIB, CAD, DM, HTN who presents to the ED with a complaint of chest pain and shortness of breath. Patient states that she had heart valve surgery for a leaky valve on 04/21 at [facility] in [place]. She states that at approximately 3:30 a.m. in the morning she developed some chest pain and shortness of breath. Patient states that the pain is pressure-like and she rates it as a 10/10. She has a history of cardiac events in the past. Troponin is negative. Chest x-ray shows hazy bilateral opacities which may reflect atypical infection or pulmonary edema. Patient was admitted to the hospital. I am asked to consult on this patient. Family History: FH: chronic kidney disease G8 FATHER FH: heart disease G8 MOTHER G8 FATHER Hypertension G8 MOTHER G8 FATHER Allergies: Coded Allergies: NO KNOWN ALLERGIES (Unverified , 05/02/25) Home Meds Active Scripts Acetaminophen (Tylenol) 325 Mg Tb, 325 MG PO TID for 10 Days, #30 TAB Prov:RED ROLDAN 01/17/25 Apixaban Base (ELIQUIS) 5 Mg Tab, 5 MG PO BID, #90 TAB Prov:CHRISTINE MENA MD 03/23/22 Reported Medications Atenolol (Atenolol) 50 Mg Tab, 1 TAB PO DAILY for 90 Days, #90 01/15/25 Omeprazole (Omeprazole Dr) 20 Mg Cap, 1 CAP PO DAILY for 90 Days, #90 01/15/25 Tirzepatide (Mounjaro) 5 Mg/0.5 Ml Inj, 5 MG SC QWEEKLY for 28 Days, #2 01/15/25 Diltiazem Hcl (Dilt-Xr) 120 Mg Cap, 1 CAP PO DAILY for 90 Days, #90 01/15/25 Atorvastatin Calcium (ATORVASTATIN CALCIUM) 20 Mg Tab, 1 TAB PO DAILY, #30 TAB 5 Refills 01/12/25 Empagliflozin (Jardiance) 25 Mg Tab, 25 MG PO DAILY, TAB 01/12/25 Nitroglycerin (NTROSTAT SUBLINGUAL) 0.4 Mg Sl, 0.4 MG SL PRN, TAB *MAY REPEAT EVERY 5 MINUTES X 3 TOTAL IF NO RELIEF, INITIATE ANALGESIC THERAPY. NOTIFY PHYSICIAN *Do not crush. 03/23/22 Current Medications Current Medications Medications (Trade) Dose Ordered Sig/Flakito Route PRN Reason Start Time Stop Time Status Last Admin Sodium Chloride (Saline Lock Ns) 10 ml Q8HR IV 05/02/25 14:00 05/02/25 15:48 Ondansetron HCl (Zofran) 4 mg Q4HP PRN IV NAUSEA / VOMITING 05/02/25 14:00 Acetaminophen (Tylenol Tablet) 650 mg Q6HP PRN PO PAIN SCALE 1-3 OR TEMP>100.4 05/02/25 14:00 Morphine Sulfate 2 mg Q4HPRN PRN IV SEVERE PAIN (7-10 PAIN SCALE) 05/02/25 14:45 Nitroglycerin (Ntrostat Sublingual) 0.4 mg Q5MINP PRN SL FOR CHEST PAIN 05/02/25 14:00 Morphine Sulfate 2 mg Q30M PRN IV FOR CHEST PAIN 05/02/25 14:45 Apixaban (Eliquis) 5 mg BID PO 05/02/25 22:00 Atorvastatin Calcium (Lipitor) 20 mg HS PO 05/02/25 22:00 Atenolol (Tenormin Tablet) 50 mg DAILY PO 05/03/25 10:00 Empaglifozin (Jardiance) 25 mg DAILY PO 05/03/25 10:00 Aspirin 81 mg DAILY PO 05/03/25 10:00 Diagnostic Test (Pha) (Accu-Chek Comfort Curve T) 1 strip ACHS 05/02/25 17:00 05/02/25 17:18 Insulin Human Regular (InsuLIN R) ACHS SC 05/02/25 17:00 05/02/25 17:18 Dextrose 50 ml UD PRN IV Blood Sugar LESS THAN 60 05/02/25 14:45 Furosemide (Lasix Injection) 40 mg DAILY IV 05/02/25 15:00 05/02/25 15:48 Review of Systems Constitutional: denies: chills, diaphoresis, fatigue, fever, malaise, sweats, weakness, others EENTM: denies: blurred vision, double vision, ear bleeding, ear discharge, ear drainage, ear pain, ear ringing, eye pain, eye redness, hearing loss, mouth pain, mouth swelling, nasal discharge, nose bleeding, nose congestion, nose pain, photophobia, tearing, throat pain, throat swelling, voice changes, others Respiratory: reports: cough, shortness of breath; denies: hemoptysis, orthopnea, SOB at rest, SOB with excertion, stridor, wheezing, others Cardiovascular: reports: chest pain; denies: dizzy spells, diaphoresis, Dyspnea on exertion, edema, irregular heart beat, left arm pain, lightheadedness, palpitations, PND, syncope, others Gastrointestinal: denies: abdomen distended, abdominal pain, blood streaked bowels, constipated, diarrhea, dysphagia, difficulty swallowing, hematemesis, melena, nausea, poor appetite, poor fluid intake, rectal bleeding, rectal pain, vomiting, others Genitourinary: denies: abnormal vagina bleeding, burning, dyspareunia, dysuria, flank pain, frequency, hematuria, incontinence, pain, , vagina discharge, urgency, others Neurological: denies: dizziness, fainting, headache, left sided numbness, left sided weakness, numbness, paresthesia, pre-existing deficit, right sided numbness, right sided weakness, seizure, speech problems, tingling, tremors, weakness, others Musculoskeletal: denies: back pain, gout, joint pain, joint swelling, muscle pain, muscle stiffness, neck pain, others Integumetry: denies: bruises, change in color, change in hair/nails, dryness, laceration, lesions, lumps, rash, wounds, others Allergic/Immunocompromised: denies: Difficulty Healing, Frequent Infections, Hives, Itching, others Hematologic/Lymphatic: denies: anemia, blood clots, easy bleeding, easy bruising, swollen glands, others Endocrine: denies: excessive hunger, excessive sweating, excessive thirst, excessive urination, flushing, intolerance to cold, intolerance to heat, unexplained weight gain, unexplained weight loss, others Psychiatric: reports: others (Insomnia); denies: anxiety, bipolar disorder, depression, hopeless, panic disorder, schizophrenia, sleepless, suicidal Vital Signs Vital Signs Date Time Temp Pulse Resp B/P (MAP) Pulse Ox O2 Delivery O2 Flow Rate FiO2 05/02/25 17:50 82 18 98 Room Air* 0 21 05/02/25 17:30 97.1 146/89 (108) 97.1 Physical Exam GENERAL: Alert and oriented x 3. No acute distress. EYES: PERRL, EOMI. Anicteric. HENT: Moist mucous membranes. LUNGS: Clear to auscultation bilaterally. CARDIOVASCULAR: Regular rate and rhythm. ABDOMEN: Soft, nontender and nondistended. EXTREMITIES: No edema. NEUROLOGIC: No focal neurological deficits. SKIN: Warm, dry. Labs/Diagnostic Data Labs Test 05/02/25 17:13 05/02/25 10:17 05/02/25 10:03 05/02/25 09:14 Range/Units POC Glucose 278 H 70-106 mg/dl Magnesium Level 1.8 1.6-2.6 mg/dL Total Bilirubin 0.3 0.2-1.0 mg/dL Direct Bilirubin 0.1 <0.3 mg/dL Aspartate Amino Transferase (AST) 28 13-40 U/L Alanine Aminotransferase (ALT) 41 H 7-40 U/L Alkaline Phosphatase 136 H 46-116 U/L Troponin I High Sensitivity 4 </=34 ng/L Total Protein 7.1 5.7-8.2 g/dL Albumin 4.2 3.2-4.8 g/dL Urine Color Light-yellow Yellow Urine Clarity Clear Clear Urine pH 5.5 5.0-9.0 Urine Specific [place] 1.007 1.001-1.035 Urine Protein Negative Negative Urine Ketones Negative Negative Urine Blood Negative Negative /uL Urine Nitrite Negative Negative Urine Bilirubin Negative Negative Urine Urobilinogen Normal Negative mg/dL Urine Leukocyte Esterase 1+ Negative /uL Urine RBC 1 0 - 4 /hpf Urine Microscopic WBC 2 0-5 /HPF Urine Squamous Epithelial Cells Few <5 /hpf Urine Bacteria Few H None Seen /hpf Urine Glucose 3+ H Normal mg/dL White Blood Count 8.0 4.4-10.8 10^3/uL Red Blood Count 4.42 4.0-5.20 10^6/uL Hemoglobin 13.7 12.2-16.2 g/dL Hematocrit 40.5 36.0-46.0 % Mean Corpuscular Volume 91.7 80.0-100.0 fL Mean Corpuscular Hemoglobin 31.0 28.0-32.0 pg Mean Corpuscular Hemoglobin Concent 33.8 32.0-36.0 g/dL Red Cell Distribution Width 14.3 11.8-14.3 % Platelet Count 233 140-450 10^3/uL Mean Platelet Volume 9.2 6.9-10.8 fL Neutrophils (%) (Auto) 74.7 37.0-80.0 % Lymphocytes (%) (Auto) 17.8 10.0-50.0 % Monocytes (%) (Auto) 5.6 0.0-12.0 % Eosinophils (%) (Auto) 1.3 0.0-7.0 % Basophils (%) (Auto) 0.6 0.0-2.0 % Neutrophils # (Auto) 6.0 1.6-8.6 10 ^3/uL Lymphocytes # (Auto) 1.4 0.4-5.4 10 ^3/uL Monocytes # (Auto) 0.4 0-1.3 10 ^3/uL Eosinophils # (Auto) 0.1 0-0.8 10 ^3/uL Basophils # (Auto) 0 0-0.2 10 ^3/uL Nucleated Red Blood Cells 0.0 % D-Dimer, Quantitative 0.34 0.0-0.49 mg/L FEU Sodium Level 141 136-145 mmol/L Potassium Level 4.0 3.5-5.1 mmol/L Chloride Level 106 98-107 mmol/L Carbon Dioxide Level 26 20-31 mmol/L Anion Gap 9 5-15 Blood Urea Nitrogen 17 9-23 mg/dL Creatinine 0.59 0.550-1.02 mg/dL Glomerular Filtration Rate Calc 101 >90 mL/min BUN/Creatinine Ratio 28.8 H 10.0-20.0 Serum Glucose 172 H 74-106 mg/dL Hemoglobin A1c 8.4 H <5.7 % A1C Calcium Level 8.7 8.7-10.4 mg/dL B-Type Natriuretic Peptide 256.17 0-100 pg/mL Assessment Chest pain. CAD. Acute on Chronic HFpEF, NYHA class III. Hypertensive heart disease with a diastolic dysfunction. Pulmonary hypertension. Paroxysmal A fib with a 2 hypercoagulable state, NSR now. Dyslipidemia. Type 2 diabetes mellitus. Plan/Recommendation I agree with your ongoing assessment and care of plan. Echocardiogram. Trend troponin. Eliquis. Aspirin, Lipitor. Atenolol. Diuretics with Lasix. Morphine for pain management. Additional plan as per the hospital course. A total of 45 minutes was spent reviewing the patient record, examining the patient, making a diagnostic and therapeutic plan, discussing this plan with medical personnel, following up on diagnostic studies and following the patient for clinical stability excluding any and all procedures. At least 50% of this time was spent in direct, [id number] contact. Plan discussed with: Patient DONNELL SARGENT MD May 02, 2025 18:34
--- NOTE | 2025-05-03 00:54 | DVHSR ---
APPROVED REPORT EXAM: LIMITED Two-dimensional and M-mode echocardiogram with Doppler and color Doppler. Blood Pressure: 140/81 mmHg INDICATION CHF exacerbation Status post valve surgery Surgery/Intervention Mitral valve clip RISK FACTORS Height: 5'0", Weight: 132 DIMENSIONS LVDd3.1 (3.8-5.7cm)LA (2D) (1.9-4.0cm)Aortic Root (2.0-3.7cm) LVDs2.0 (2.5-4.0cm)LA (MM) (1.9-4.0cm)Aortic Cusp Exc (1.5-2.0cm) EF (%) 65.0 (55-70%)Rt. Atrium (1.9-4.0cm)Asc. Aorta cm IVSd1.2 (0.7-1.1cm)RV (D) (1.8-2.4cm) PWd1.2 (0.7-1.1cm) Mitral Valve MitralMitral Stenosis E wave2.20m/sMV Mean GR.14mmHg A wave1.87m/sMV Peak GR.23mmHg E/A ratio1.22D MVA0.70cm2 DECEL [id number] 1/2 [id number] Aortic Valve Aortic ValveAortic Stenosis V11.33m/Kevin Mean GR.9mmHg V22.02m/Kevin Peak GR.16mmHg LVOT Diameter1.6 (1.8-2.4cm)Doppler AVA1.32cm2 Other Information Technically limited study due to body habitus. Limited repeat to eval mitral valve and ef. Conclusion MITRAL VALVE CLIP IS SEEN BUT FUNCTIONING VERY WELL NO VEGETATION OR THROMBUS MODERATE DEGREE LVH AND MILD LV DIASTOLIC DYSFUNCTION MODERATELY DILATED LA AND RA LV EF IS 65 % NO EFFUSION NORMAL RV FUNCTION
[2025-05-03 05:48] LABS: Hematocrit 40.7 % (36.0-46.0); Hemoglobin 13.7 g/dL (12.2-16.2); Mean Corpuscular Hemoglobin 31.1 pg (28.0-32.0); Mean Corpuscular Volume 92.4 fL (80.0-100.0); Nucleated Red Blood Cells % 0.1 %
[2025-05-03 05:57] LABS: Alanine Aminotransferase 34 U/L (7-40); Albumin 3.9 g/dL (3.2-4.8); Alkaline Phosphatase 109 U/L (46-116); Anion Gap 9 (5-15); BUN/Creatinine Ratio 22.2 (10.0-20.0); Bilirubin, Total 0.5 mg/dL (0.2-1.0); Blood Urea Nitrogen 12 mg/dL (9-23); Calcium 8.7 mg/dL (8.7-10.4); Carbon Dioxide 29 mmol/L (20-31); Chloride 103 mmol/L (98-107); Potassium 4.0 mmol/L (3.5-5.1); Sodium 141 mmol/L (136-145); Total Protein 6.8 g/dL (5.7-8.2)
[2025-05-03 05:58] LABS: Glucose 130 mg/dL (74-106)
[2025-05-03] MEDS: ATENOLOL 25 MG TAB PO SCH (10:45)
[2025-05-03] MEDS: EMPAGLIFLOZIN 10 MG TAB PO SCH (10:46)
[2025-05-03] MEDS: ACETAMINOPHEN 325 MG TAB PO PRN (16:20)
--- NOTE | 2025-05-03 23:34 | DVHPN2 ---
Progress Note - Dictate Date Seen: May 03, 2025 Medical Necessity Reason Pt with a Central, PICC or Fol: No Subjective Patient was seen and evaluated in follow up. Patient c/o intermittent chest pain. Stable on room air. CBC and chemistry are WNL Telemetry reviewed. vital signs Vital Sign Date Time Temp Pulse Resp B/P (MAP) Pulse Ox O2 Delivery O2 Flow Rate FiO2 05/03/25 21:00 97.8 61 17 105/70 (82) 97 97.8 05/03/25 08:00 Room Air* 0 21 Total Intake and Output 05/02/25 05/02/25 05/03/25 15:00 23:00 07:00 Intake Total 840 ml 495 ml Output Total 350 ml Balance 840 ml 145 ml medications Current Medications Medications Dose Ordered Sig/Flakito Route Start Time Stop Time Status Last Admin Dose Admin Sodium Chloride 10 ml Q8HR IV 05/02/25 14:00 05/03/25 22:04 10 ML Ondansetron HCl 4 mg Q4HP PRN IV 05/02/25 14:00 Acetaminophen 650 mg Q6HP PRN PO 05/02/25 14:00 05/03/25 16:20 650 MG Morphine Sulfate 2 mg Q4HPRN PRN IV 05/02/25 14:45 05/02/25 22:16 2 MG Nitroglycerin 0.4 mg Q5MINP PRN SL 05/02/25 14:00 Morphine Sulfate 2 mg Q30M PRN IV 05/02/25 14:45 Apixaban 5 mg BID PO 05/02/25 22:00 05/03/25 22:03 5 MG Atorvastatin Calcium 20 mg HS PO 05/02/25 22:00 05/03/25 22:03 20 MG Atenolol 50 mg DAILY PO 05/03/25 10:00 05/03/25 10:45 50 MG Empaglifozin 25 mg DAILY PO 05/03/25 10:00 05/03/25 10:46 25 MG Aspirin 81 mg DAILY PO 05/03/25 10:00 05/03/25 10:46 81 MG Diagnostic Test (Pha) 1 strip ACHS 05/02/25 17:00 05/03/25 22:00 1 STRIP Insulin Human Regular ACHS SC 05/02/25 17:00 05/03/25 22:00 3 UNITS Dextrose 50 ml UD PRN IV 05/02/25 14:45 Furosemide 40 mg DAILY IV 05/02/25 15:00 05/03/25 10:45 40 MG objective GENERAL: Alert and oriented x 3. No acute distress. EYES: PERRL, EOMI. Anicteric. HENT: Moist mucous membranes. LUNGS: Clear to auscultation bilaterally. CARDIOVASCULAR: Regular rate and rhythm. ABDOMEN: Soft, nontender and nondistended. EXTREMITIES: No edema. NEUROLOGIC: No focal neurological deficits. SKIN: Warm, dry. laboratory and microbiology Laboratory Tests 05/03/25 04:47 Test 05/03/25 04:47 Range/Units Serum Glucose 130 H 74-106 mg/dL Problem List Chest pain. CAD. Acute on Chronic HFpEF, NYHA class III. Hypertensive heart disease with a diastolic dysfunction. Pulmonary hypertension. Paroxysmal A fib with a 2 hypercoagulable state, NSR now. Dyslipidemia. Type 2 diabetes mellitus. Assessment/Plan Continued all current supportive medical care. Echocardiogram. Eliquis. Aspirin, Lipitor. Atenolol. Diuretics with Lasix. Morphine for pain management. Additional plan as per the hospital course. Plan discussed with: Patient DONNELL SARGENT MD May 03, 2025 23:34
[2025-05-04] VITALS (8 sets, daily range): BP systolic 117–142; BP diastolic 72–92; PULSE 63–79; RESP 16–20; TEMP 97.6–98; O2SAT 94–98
--- NOTE | 2025-05-04 13:51 | DVHPN2 ---
Reviewed: Care Plan Changes from previous H/P or p: No Changes General: Per HPI Objective Vitals Vital Signs Date Time Temp Pulse Resp B/P (MAP) Pulse Ox O2 Delivery O2 Flow Rate FiO2 05/04/25 09:59 79 121/72 05/04/25 08:00 16 94 Room Air* 0 21 05/04/25 05:00 97.8 97.8 Intake/Output Intake and Output 05/04/25 07:00 Intake Total 1370 ml Balance 1370 ml Intake Oral 1370 ml # Voids 6 # Bowel Movements 1 Medications Current Medications Medications Dose Ordered Sig/Flakito Route Start Time Stop Time Status Last Admin Dose Admin Sodium Chloride 10 ml Q8HR IV 05/02/25 14:00 05/04/25 07:03 10 ML Ondansetron HCl 4 mg Q4HP PRN IV 05/02/25 14:00 Acetaminophen 650 mg Q6HP PRN PO 05/02/25 14:00 05/04/25 13:29 650 MG Morphine Sulfate 2 mg Q4HPRN PRN IV 05/02/25 14:45 05/02/25 22:16 2 MG Nitroglycerin 0.4 mg Q5MINP PRN SL 05/02/25 14:00 Morphine Sulfate 2 mg Q30M PRN IV 05/02/25 14:45 Apixaban 5 mg BID PO 05/02/25 22:00 05/04/25 09:57 5 MG Atorvastatin Calcium 20 mg HS PO 05/02/25 22:00 05/03/25 22:03 20 MG Atenolol 50 mg DAILY PO 05/03/25 10:00 05/04/25 09:59 50 MG Empaglifozin 25 mg DAILY PO 05/03/25 10:00 05/04/25 09:57 25 MG Aspirin 81 mg DAILY PO 05/03/25 10:00 05/04/25 09:58 81 MG Diagnostic Test (Pha) 1 strip ACHS 05/02/25 17:00 05/04/25 10:07 1 STRIP Insulin Human Regular ACHS SC 05/02/25 17:00 05/04/25 10:07 8 UNITS Dextrose 50 ml UD PRN IV 05/02/25 14:45 Furosemide 40 mg DAILY IV 05/02/25 15:00 05/04/25 09:55 40 MG Laboratory Results Laboratory Tests 05/03/25 04:47 Urinalysis Test 05/02/25 10:03 Urine Color Light-yellow (Yellow) Urine Clarity Clear (Clear) Urine pH 5.5 (5.0-9.0) Urine Specific [place] 1.007 (1.001-1.035) Urine Protein Negative (Negative) Urine Ketones Negative (Negative) Urine Blood Negative /uL (Negative) Urine Nitrite Negative (Negative) Urine Bilirubin Negative (Negative) Urine Urobilinogen Normal mg/dL (Negative) Urine Leukocyte Esterase 1+ /uL (Negative) Urine RBC 1 /hpf (0 - 4) Urine Microscopic WBC 2 /HPF (0-5) Urine Squamous Epithelial Cells Few /hpf (<5) Urine Bacteria Few /hpf (None Seen) H Urine Glucose 3+ mg/dL (Normal) H Assessment/Plan Assessment/Plan # Chest pain r/o ACS, unstable angina # CAD # Possible Acute on Chronic HFpEF, NYHA class III # Hypertensive heart disease with a diastolic dysfunction # Pulmonary hypertension. # Paroxysmal A fib with a 2 hypercoagulable state, NSR now # Dyslipidemia # Type 2 diabetes mellitus. being worked up by cardiology GI PPX: Protonix VTE ppx: Eliquis Diet: Cardiac Plan discussed with: Patient Date of Service: May 04, 2025 Billing Provider: HAY VALVERDE DO Common Visit Codes: [id number] INP/OBS CARE(HIGH) HAY VALVERED DO May 04, 2025 13:51
[2025-05-04] MEDS ORDERED: ALBUTEROL SULF 2.5 MG/0.5ML(0.5%) NEB SOLN NEB PRN (14:45)
--- NOTE | 2025-05-04 15:48 | DVHINCON2 ---
Date of service: May 04, [address] Lema Reason for Consultation Acute respiratory failure History of Present Illness History Source: Patient Exam Limitations: No limitations HPI Patient is a 64-year old lady with a history of CAD s/p stent placement who presented with wheezing and shortness of breath. Was seen in the emergency room where chest x-ray findings were consistent with pneumonia and she was admitted for IV antibiotics. Pulmonology was consulted to assist in management. Home Meds Active Scripts Acetaminophen (Tylenol) 325 Mg Tb, 325 MG PO TID for 10 Days, #30 TAB Prov:RED ROLDAN 01/17/25 Apixaban Base (ELIQUIS) 5 Mg Tab, 5 MG PO BID, #90 TAB Prov:CHRISTINE MENA MD 03/23/22 Reported Medications Atenolol (Atenolol) 50 Mg Tab, 1 TAB PO DAILY for 90 Days, #90 01/15/25 Omeprazole (Omeprazole Dr) 20 Mg Cap, 1 CAP PO DAILY for 90 Days, #90 01/15/25 Tirzepatide (Mounjaro) 5 Mg/0.5 Ml Inj, 5 MG SC QWEEKLY for 28 Days, #2 01/15/25 Diltiazem Hcl (Dilt-Xr) 120 Mg Cap, 1 CAP PO DAILY for 90 Days, #90 01/15/25 Atorvastatin Calcium (ATORVASTATIN CALCIUM) 20 Mg Tab, 1 TAB PO DAILY, #30 TAB 5 Refills 01/12/25 Empagliflozin (Jardiance) 25 Mg Tab, 25 MG PO DAILY, TAB 01/12/25 Nitroglycerin (NTROSTAT SUBLINGUAL) 0.4 Mg Sl, 0.4 MG SL PRN, TAB *MAY REPEAT EVERY 5 MINUTES X 3 TOTAL IF NO RELIEF, INITIATE ANALGESIC THERAPY. NOTIFY PHYSICIAN *Do not crush. 03/23/22 Past Medical History Cardiac: CAD Pulmonary: No pertinent Hx Central Nervous System: No pertinent Hx GI: No pertinent Hx Hemotology/Oncology: No pertinent Hx Hepatobiliary: No pertinent Hx Psychiatric: No pertinent Hx Musculoskeletal: No pertinent Hx Rheumotologic: No pertinent Hx Infectious Disease: No peritnent Hx ENT: No pertinent Hx Renal/: No pertinent Hx Endocrine: No pertinent Hx Dermatology: No pertinent Hx Family History: Hypertension Patient Family History: FH: chronic kidney disease G8 FATHER FH: heart disease G8 MOTHER G8 FATHER Hypertension G8 MOTHER G8 FATHER Smoker: No Hx (Negative) Alocohol: None Drugs: None Lives with: With family Domestic Violence: Neg Review of Systems Constitutional: No symptom reported Ears, Nose, & Throat: No symptom reported Eyes: No symptom reported Pulmonary/Respiratory: Dyspnea Cardiovascular: No symptom reported Gastrointestinal: No symptom reported Genitourinary: No symptom reported Musculoskeletal: No symptom reported Skin: No symptom reported Psychiatric: No symptom reported Endocrine: No symptom reported Hemotologic/Lymphatic: No symptom reported H&P Exam Vital Signs Vital Signs Date Time Temp Pulse Resp B/P (MAP) Pulse Ox O2 Delivery O2 Flow Rate FiO2 05/04/25 13:00 97.6 66 20 118/77 (91) 98 97.6 05/04/25 08:00 Room Air* 0 21 General Appeara: Well developed, Well nourished, Normal Appearance Head Exam: Normal inspection Neck Exam: Normal inspection, Non-tender, Normal alignment Eye Exam: bilateral eye Normal inspection, bilateral eye PERRL, bilateral eye EOMI Ear Exam: bilateral ear Auricle normal, bilateral ear Canal normal, bilateral ear TM normal Nasal Exam: Normal inspection Mouth: Normal Inspection Pulmonary/Respiratory: Normal inspection, Normal breath sounds, Chest non- tender, Lungs clear Cardiovascular/Chest: Normal inspection, Regular rate, Normal Rhythm Peripheral Pulses: 4+ Radial (R), 4+ Radial (L), 4+ Brachial (R), 4+ Brachial (L) Abdominal Exam: Normal bowel sounds Labs/Xrays Labs Test 05/04/25 10:02 05/03/25 04:47 05/02/25 10:17 05/02/25 10:03 Range/Units POC Glucose 342 H 70-106 mg/dl White Blood Count 7.4 4.4-10.8 10^3/uL Red Blood Count 4.41 4.0-5.20 10^6/uL Hemoglobin 13.7 12.2-16.2 g/dL Hematocrit 40.7 36.0-46.0 % Mean Corpuscular Volume 92.4 80.0-100.0 fL Mean Corpuscular Hemoglobin 31.1 28.0-32.0 pg Mean Corpuscular Hemoglobin Concent 33.6 32.0-36.0 g/dL Red Cell Distribution Width 14.3 11.8-14.3 % Platelet Count 235 140-450 10^3/uL Mean Platelet Volume 9.3 6.9-10.8 fL Neutrophils (%) (Auto) 71.9 37.0-80.0 % Lymphocytes (%) (Auto) 21.3 10.0-50.0 % Monocytes (%) (Auto) 5.1 0.0-12.0 % Eosinophils (%) (Auto) 1.2 0.0-7.0 % Basophils (%) (Auto) 0.5 0.0-2.0 % Neutrophils # (Auto) 5.3 1.6-8.6 10 ^3/uL Lymphocytes # (Auto) 1.6 0.4-5.4 10 ^3/uL Monocytes # (Auto) 0.4 0-1.3 10 ^3/uL Eosinophils # (Auto) 0.1 0-0.8 10 ^3/uL Basophils # (Auto) 0 0-0.2 10 ^3/uL Nucleated Red Blood Cells 0.1 % Sodium Level 141 136-145 mmol/L Potassium Level 4.0 3.5-5.1 mmol/L Chloride Level 103 98-107 mmol/L Carbon Dioxide Level 29 20-31 mmol/L Anion Gap 9 5-15 Blood Urea Nitrogen 12 9-23 mg/dL Creatinine 0.54 L 0.550-1.02 mg/dL Glomerular Filtration Rate Calc 103 >90 mL/min BUN/Creatinine Ratio 22.2 H 10.0-20.0 Serum Glucose 130 H 74-106 mg/dL Calcium Level 8.7 8.7-10.4 mg/dL Total Bilirubin 0.5 0.2-1.0 mg/dL Aspartate Amino Transferase (AST) 25 13-40 U/L Alanine Aminotransferase (ALT) 34 7-40 U/L Alkaline Phosphatase 109 46-116 U/L Total Protein 6.8 5.7-8.2 g/dL Albumin 3.9 3.2-4.8 g/dL Magnesium Level 1.8 1.6-2.6 mg/dL Direct Bilirubin 0.1 <0.3 mg/dL Troponin I High Sensitivity 4 </=34 ng/L Urine Color Light-yellow Yellow Urine Clarity Clear Clear Urine pH 5.5 5.0-9.0 Urine Specific [place] 1.007 1.001-1.035 Urine Protein Negative Negative Urine Ketones Negative Negative Urine Blood Negative Negative /uL Urine Nitrite Negative Negative Urine Bilirubin Negative Negative Urine Urobilinogen Normal Negative mg/dL Urine Leukocyte Esterase 1+ Negative /uL Urine RBC 1 0 - 4 /hpf Urine Microscopic WBC 2 0-5 /HPF Urine Squamous Epithelial Cells Few <5 /hpf Urine Bacteria Few H None Seen /hpf Urine Glucose 3+ H Normal mg/dL Urine Opiates Screen Neg NEGATIVE Urine Fentanyl Screen Neg NEGATIVE Urine Barbiturates Screen Neg NEGATIVE Urine Phencyclidine Screen Neg NEGATIVE Urine Amphetamines Screen Neg NEGATIVE Urine Benzodiazepines Screen Neg NEGATIVE Urine Cocaine Screen Neg NEGATIVE Urine Cannabinoids Screen Neg NEGATIVE Test 05/02/25 09:14 Range/Units D-Dimer, Quantitative 0.34 0.0-0.49 mg/L FEU Hemoglobin A1c 8.4 H <5.7 % A1C B-Type Natriuretic Peptide 256.17 0-100 pg/mL Assessment/Plan Plan Impression Acute hypoxemic respiratory failure Pneumonia Atelectasis Wheezing Patient seen and examined Events Low oxygen requirements On 2 liters nasal cannula Vital signs stable Labs and imaging reviewed Chest x-ray shows right lower lobe infiltrates consistent with pneumonia Management Supplemental oxygen Titrate to maintain sats 90% or above Incentive spirometry Antibiotics Bronchodilators Monitor renal function Monitor electrolytes Supplement as needed DVT prophylaxis Plan discussed with: Patient LARISSA HEIN MD May 04, 2025 15:48
--- NOTE | 2025-05-04 23:56 | DVHPN2 ---
Progress Note - Dictate Date Seen: May 04, 2025 Medical Necessity Reason Pt with a Central, PICC or Fol: No Subjective Patient was seen and evaluated in follow up. No overnight events. Patient is resting in bed. He does not voice any complaints. BS in the 130s. Telemetry reviewed. vital signs Vital Sign Date Time Temp Pulse Resp B/P (MAP) Pulse Ox O2 Delivery O2 Flow Rate FiO2 05/04/25 21:00 97.9 73 17 117/74 (88) 94 97.9 05/04/25 08:00 Room Air* 0 21 Total Intake and Output 05/03/25 05/03/25 05/04/25 15:00 23:00 07:00 Intake Total 970 ml 400 ml Balance 970 ml 400 ml medications Current Medications Medications Dose Ordered Sig/Flakito Route Start Time Stop Time Status Last Admin Dose Admin Sodium Chloride 10 ml Q8HR IV 05/02/25 14:00 05/04/25 21:20 10 ML Ondansetron HCl 4 mg Q4HP PRN IV 05/02/25 14:00 Acetaminophen 650 mg Q6HP PRN PO 05/02/25 14:00 05/04/25 21:20 650 MG Morphine Sulfate 2 mg Q4HPRN PRN IV 05/02/25 14:45 05/02/25 22:16 2 MG Nitroglycerin 0.4 mg Q5MINP PRN SL 05/02/25 14:00 Morphine Sulfate 2 mg Q30M PRN IV 05/02/25 14:45 Apixaban 5 mg BID PO 05/02/25 22:00 05/04/25 21:20 5 MG Atorvastatin Calcium 20 mg HS PO 05/02/25 22:00 05/04/25 21:20 20 MG Atenolol 50 mg DAILY PO 05/03/25 10:00 05/04/25 09:59 50 MG Empaglifozin 25 mg DAILY PO 05/03/25 10:00 05/04/25 09:57 25 MG Aspirin 81 mg DAILY PO 05/03/25 10:00 05/04/25 09:58 81 MG Diagnostic Test (Pha) 1 strip ACHS 05/02/25 17:00 05/04/25 21:18 1 STRIP Insulin Human Regular ACHS SC 05/02/25 17:00 05/04/25 21:19 4 UNITS Dextrose 50 ml UD PRN IV 05/02/25 14:45 Furosemide 40 mg DAILY IV 05/02/25 15:00 05/04/25 09:55 40 MG Ceftriaxone Sodium 50 ml @ 100 mls/hr DAILY@09 IV 05/04/25 16:00 05/04/25 15:46 100 MLS/HR objective GENERAL: Alert and oriented x 3. No acute distress. EYES: PERRL, EOMI. Anicteric. HENT: Moist mucous membranes. LUNGS: Clear to auscultation bilaterally. CARDIOVASCULAR: Regular rate and rhythm. ABDOMEN: Soft, nontender and nondistended. EXTREMITIES: No edema. NEUROLOGIC: No focal neurological deficits. SKIN: Warm, dry. laboratory and microbiology Laboratory Tests 05/03/25 04:47 Test 05/03/25 04:47 Range/Units Serum Glucose 130 H 74-106 mg/dL Problem List Chest pain. CAD. Acute on Chronic HFpEF, NYHA class III. Hypertensive heart disease with a diastolic dysfunction. Pulmonary hypertension. Paroxysmal A fib with a 2 hypercoagulable state, NSR now. Dyslipidemia. Type 2 diabetes mellitus. Assessment/Plan Continued all current supportive medical care. Echocardiogram. Eliquis. Aspirin, Lipitor. Atenolol. Diuretics with Lasix. Morphine for pain management. Additional plan as per the hospital course. Plan discussed with: Patient DONNELL SARGENT MD May 04, 2025 23:56
[2025-05-05] VITALS (7 sets, daily range): BP systolic 109–145; BP diastolic 68–95; PULSE 56–81; RESP 16–20; TEMP 97.7–98.5; O2SAT 93–98
[2025-05-05 09:54] LABS: COVID19 ANTIGEN SOFIA FIA NEGATIVE (NEGATIVE)
[2025-05-05] MEDS ORDERED: ALBUTEROL SULF 2.5 MG/0.5ML(0.5%) NEB SOLN NEB PRN (11:45)
--- NOTE | 2025-05-05 14:37 | DVHPN2 ---
Reviewed: Care Plan, H&P, Labs, Medications, Previous Orders, Radiology Changes from previous H/P or p: No Changes General: Per HPI Objective Vitals Vital Signs Date Time Temp Pulse Resp B/P (MAP) Pulse Ox O2 Delivery O2 Flow Rate FiO2 05/05/25 12:34 98.2 64 18 122/75 (91) 93 98.2 05/05/25 08:00 Room Air* 0 21 Intake/Output Intake and Output 05/05/25 07:00 Intake Total 1240 ml Balance 1240 ml Intake Oral 1190 ml IV Total 50 ml # Voids 5 Medications Current Medications Medications Dose Ordered Sig/Flakito Route Start Time Stop Time Status Last Admin Dose Admin Sodium Chloride 10 ml Q8HR IV 05/02/25 14:00 05/05/25 06:32 10 ML Ondansetron HCl 4 mg Q4HP PRN IV 05/02/25 14:00 Acetaminophen 650 mg Q6HP PRN PO 05/02/25 14:00 05/05/25 09:55 650 MG Morphine Sulfate 2 mg Q4HPRN PRN IV 05/02/25 14:45 05/02/25 22:16 2 MG Nitroglycerin 0.4 mg Q5MINP PRN SL 05/02/25 14:00 Morphine Sulfate 2 mg Q30M PRN IV 05/02/25 14:45 Apixaban 5 mg BID PO 05/02/25 22:00 05/05/25 09:55 5 MG Atorvastatin Calcium 20 mg HS PO 05/02/25 22:00 05/04/25 21:20 20 MG Atenolol 50 mg DAILY PO 05/03/25 10:00 05/05/25 09:52 50 MG Empaglifozin 25 mg DAILY PO 05/03/25 10:00 05/05/25 09:52 25 MG Aspirin 81 mg DAILY PO 05/03/25 10:00 05/05/25 09:55 81 MG Diagnostic Test (Pha) 1 strip ACHS 05/02/25 17:00 05/05/25 10:51 1 STRIP Insulin Human Regular ACHS SC 05/02/25 17:00 05/05/25 10:51 6 UNITS Dextrose 50 ml UD PRN IV 05/02/25 14:45 Furosemide 40 mg DAILY IV 05/02/25 15:00 10/8/25 09:51 40 MG Ceftriaxone Sodium 50 ml @ 100 mls/hr DAILY@09 IV 05/04/25 16:00 05/05/25 09:55 100 MLS/HR Albuterol 2.5 mg Q6HPRN PRN NEB 05/05/25 11:45 Laboratory Results Laboratory Tests 05/03/25 04:47 Urinalysis Test 05/02/25 10:03 Urine Color Light-yellow (Yellow) Urine Clarity Clear (Clear) Urine pH 5.5 (5.0-9.0) Urine Specific [place] 1.007 (1.001-1.035) Urine Protein Negative (Negative) Urine Ketones Negative (Negative) Urine Blood Negative /uL (Negative) Urine Nitrite Negative (Negative) Urine Bilirubin Negative (Negative) Urine Urobilinogen Normal mg/dL (Negative) Urine Leukocyte Esterase 1+ /uL (Negative) Urine RBC 1 /hpf (0 - 4) Urine Microscopic WBC 2 /HPF (0-5) Urine Squamous Epithelial Cells Few /hpf (<5) Urine Bacteria Few /hpf (None Seen) H Urine Glucose 3+ mg/dL (Normal) H Labs and/or images reviewed: Labs reviewed by me, Image(s) reviewed by me Assessment/Plan Assessment/Plan # Chest pain r/o ACS, unstable angina # CAD # Possible Acute on Chronic HFpEF, NYHA class III # Hypertensive heart disease with a diastolic dysfunction # Pulmonary hypertension. # Paroxysmal A fib with a 2 hypercoagulable state, NSR now # Dyslipidemia # Type 2 diabetes mellitus. being worked up by cardiology GI PPX: Protonix VTE ppx: Eliquis Diet: Cardiac Plan discussed with: Patient My Orders Orders - HAY VALVERDE DO Procedure Category Date Status Time *Consult CONS 05/04/25 Transmitted 14:37 Ceftriaxone 1gm/50ml PHA 05/04/25 In Process (Rocephin) 16:00 Date of Service: May 03, 2025 Billing Provider: HAY VALVERDE DO Common Visit Codes: [id number] INP/OBS CARE(HIGH) HAY VALVERDE DO May 05, 2025 14:37
--- NOTE | 2025-05-05 14:39 | DVHDS2 ---
Discharge Summary Date of Admission May 02, 2025 at 13:55 Date of Discharge: May 05, 2025 Labs/Diagnostic Data: Laboratory Results Test 05/05/25 10:29 05/03/25 04:47 05/02/25 10:17 05/02/25 10:03 POC Glucose 281 mg/dl (70-106) White Blood Count 7.4 10^3/uL (4.4-10.8) Red Blood Count 4.41 10^6/uL (4.0-5.20) Hemoglobin 13.7 g/dL (12.2-16.2) Hematocrit 40.7 % (36.0-46.0) Mean Corpuscular Volume 92.4 fL (80.0-100.0) Mean Corpuscular Hemoglobin 31.1 pg (28.0-32.0) Mean Corpuscular Hemoglobin Concent 33.6 g/dL (32.0-36.0) Red Cell Distribution Width 14.3 % (11.8-14.3) Platelet Count 235 10^3/uL (140-450) Mean Platelet Volume 9.3 fL (6.9-10.8) Neutrophils (%) (Auto) 71.9 % (37.0-80.0) Lymphocytes (%) (Auto) 21.3 % (10.0-50.0) Monocytes (%) (Auto) 5.1 % (0.0-12.0) Eosinophils (%) (Auto) 1.2 % (0.0-7.0) Basophils (%) (Auto) 0.5 % (0.0-2.0) Neutrophils # (Auto) 5.3 10 ^3/uL (1.6-8.6) Lymphocytes # (Auto) 1.6 10 ^3/uL (0.4-5.4) Monocytes # (Auto) 0.4 10 ^3/uL (0-1.3) Eosinophils # (Auto) 0.1 10 ^3/uL (0-0.8) Basophils # (Auto) 0 10 ^3/uL (0-0.2) Nucleated Red Blood Cells 0.1 % Sodium Level 141 mmol/L (136-145) Potassium Level 4.0 mmol/L (3.5-5.1) Chloride Level 103 mmol/L (98-107) Carbon Dioxide Level 29 mmol/L (20-31) Anion Gap 9 (5-15) Blood Urea Nitrogen 12 mg/dL (9-23) Creatinine 0.54 mg/dL (0.550-1.02) Glomerular Filtration Rate Calc 103 mL/min (>90) BUN/Creatinine Ratio 22.2 (10.0-20.0) Serum Glucose 130 mg/dL (74-106) Calcium Level 8.7 mg/dL (8.7-10.4) Total Bilirubin 0.5 mg/dL (0.2-1.0) Aspartate Amino Transferase (AST) 25 U/L (13-40) Alanine Aminotransferase (ALT) 34 U/L (7-40) Alkaline Phosphatase 109 U/L (46-116) Total Protein 6.8 g/dL (5.7-8.2) Albumin 3.9 g/dL (3.2-4.8) Magnesium Level 1.8 mg/dL (1.6-2.6) Direct Bilirubin 0.1 mg/dL (<0.3) Troponin I High Sensitivity 4 ng/L (</=34) Urine Color Light-yellow (Yellow) Urine Clarity Clear (Clear) Urine pH 5.5 (5.0-9.0) Urine Specific [place] 1.007 (1.001-1.035) Urine Protein Negative (Negative) Urine Ketones Negative (Negative) Urine Blood Negative /uL (Negative) Urine Nitrite Negative (Negative) Urine Bilirubin Negative (Negative) Urine Urobilinogen Normal mg/dL (Negative) Urine Leukocyte Esterase 1+ /uL (Negative) Urine RBC 1 /hpf (0 - 4) Urine Microscopic WBC 2 /HPF (0-5) Urine Squamous Epithelial Cells Few /hpf (<5) Urine Bacteria Few /hpf (None Seen) Urine Glucose 3+ mg/dL (Normal) Urine Opiates Screen Neg (NEGATIVE) Urine Fentanyl Screen Neg (NEGATIVE) Urine Barbiturates Screen Neg (NEGATIVE) Urine Phencyclidine Screen Neg (NEGATIVE) Urine Amphetamines Screen Neg (NEGATIVE) Urine Benzodiazepines Screen Neg (NEGATIVE) Urine Cocaine Screen Neg (NEGATIVE) Urine Cannabinoids Screen Neg (NEGATIVE) Test 05/02/25 09:14 05/02/25 06:59 D-Dimer, Quantitative 0.34 mg/L FEU (0.0-0.49) Hemoglobin A1c 8.4 % A1C (<5.7) B-Type Natriuretic Peptide 256.17 pg/mL (0-100) Influenza Type A Antigen Negative (Negative) Influenza Type B Antigen Negative (Negative) SARS-CoV-2 Antigen (Rapid) Negative (NEGATIVE) Other Laboratory Tests 05/03/25 04:47 Brief Hx & Hospital Course: # Chest pain r/o ACS, unstable angina # CAD # Possible Acute on Chronic HFpEF, NYHA class III # Hypertensive heart disease with a diastolic dysfunction # Pulmonary hypertension. # Paroxysmal A fib with a 2 hypercoagulable state, NSR now # Dyslipidemia # Type 2 diabetes mellitus. discharged to home GI PPX: Protonix VTE ppx: Eliquis Diet: Cardiac Condition at Discharge: Fair Final Diagnosis/Problems List see above Discharge Disposition: Home Discharge Instruct/Medications Diet: Cardiac 2g Na,low cholest Activity: No Restrictions, As Tolerated Scheduled Acetaminophen (Tylenol), 325 MG PO TID Apixaban Base (Eliquis), 5 MG PO BID Atenolol (Atenolol), 1 TAB PO DAILY, (Reported) Atorvastatin Calcium (Atorvastatin Calcium), 1 TAB PO DAILY, (Reported) Diltiazem Hcl (Dilt-Xr), 1 CAP PO DAILY, (Reported) Empagliflozin (Jardiance), 25 MG PO DAILY, (Reported) Nitroglycerin (Ntrostat Sublingual), 0.4 MG SL PRN, (Reported) Omeprazole (Omeprazole Dr), 1 CAP PO DAILY, (Reported) Tirzepatide (Mounjaro), 5 MG SC QWEEKLY, (Reported) Discharge Statement: "Patient was advised to return to the ER or call 911 if any headaches, dizziness, shortness of breath, chest pain, abdominal pain, bleeding, fevers, or worsening of medical condition. Patient was counseled about treatment plan, medications, possible side effects, patientverbalized understanding. All questions were answered to the best of my ability. This discharge took greater then 30 minutes in planning, reviewing documentation, counseling the patient, and discussing with other team members." ASSESSMENT ASSESSMENT Assessment Date of Service: May 05, 2025 Billing Provider: HAY VALVERDE DO Common Visit Codes: [id number] DISCH DAY >30min HAY VALVERDE DO May 05, 2025 14:39
--- NOTE | 2025-05-05 19:11 | DVHPN2 ---
Progress Note - Dictate Date Seen: May 05, 2025 Medical Necessity Reason Pt with a Central, PICC or Fol: No vital signs Vital Sign Date Time Temp Pulse Resp B/P (MAP) Pulse Ox O2 Delivery O2 Flow Rate FiO2 05/05/25 16:27 98.5 65 20 145/95 (112) 93 98.5 05/05/25 08:00 Room Air* 0 21 Total Intake and Output 05/04/25 05/04/25 05/05/25 15:00 23:00 07:00 Intake Total 800 ml 440 ml Balance 800 ml 440 ml laboratory and microbiology Laboratory Tests 05/03/25 04:47 Test 05/03/25 04:47 Range/Units Serum Glucose 130 H 74-106 mg/dL Assessment/Plan Impression Acute hypoxemic respiratory failure Pneumonia Atelectasis Wheezing Patient seen and examined Events Low oxygen requirements On 2 liters nasal cannula No acute events Labs and imaging reviewed Chest x-ray shows right lower lobe infiltrates consistent with pneumonia Management Supplemental oxygen Titrate to maintain sats 90% or above Incentive spirometry Continue antibiotics F/u cultures Bronchodilators Monitor renal function Monitor electrolytes Supplement as needed DVT prophylaxis Plan discussed with: Patient LARISSA HEIN MD May 05, 2025 19:11
--- NOTE | 2025-05-05 23:24 | DVHPN2 ---
Progress Note - Dictate Date Seen: May 05, 2025 Medical Necessity Reason Pt with a Central, PICC or Fol: No Subjective Patient was seen and evaluated in follow up. Patient is comfortable in bed. BS are in the 280's. Echocardiogram showed an EF of 65%. Telemetry reviewed. vital signs Vital Sign Date Time Temp Pulse Resp B/P (MAP) Pulse Ox O2 Delivery O2 Flow Rate FiO2 05/05/25 12:34 98.2 64 18 122/75 (91) 93 98.2 05/05/25 08:00 Room Air* 0 21 Total Intake and Output 05/04/25 05/04/25 05/05/25 15:00 23:00 07:00 Intake Total 800 ml 440 ml Balance 800 ml 440 ml medications Current Medications Medications Dose Ordered Sig/Flakito Route Start Time Stop Time Status Last Admin Dose Admin Sodium Chloride 10 ml Q8HR IV 05/02/25 14:00 05/05/25 06:32 10 ML Ondansetron HCl 4 mg Q4HP PRN IV 05/02/25 14:00 Acetaminophen 650 mg Q6HP PRN PO 05/02/25 14:00 05/05/25 09:55 650 MG Morphine Sulfate 2 mg Q4HPRN PRN IV 05/02/25 14:45 05/02/25 22:16 2 MG Nitroglycerin 0.4 mg Q5MINP PRN SL 05/02/25 14:00 Morphine Sulfate 2 mg Q30M PRN IV 05/02/25 14:45 Apixaban 5 mg BID PO 05/02/25 22:00 05/05/25 09:55 5 MG Atorvastatin Calcium 20 mg HS PO 05/02/25 22:00 05/04/25 21:20 20 MG Atenolol 50 mg DAILY PO 05/03/25 10:00 05/05/25 09:52 50 MG Empaglifozin 25 mg DAILY PO 05/03/25 10:00 05/05/25 09:52 25 MG Aspirin 81 mg DAILY PO 05/03/25 10:05/05/25 09:55 81 MG Diagnostic Test (Pha) 1 strip ACHS 05/02/25 17:00 05/05/25 10:51 1 STRIP Insulin Human Regular ACHS SC 05/02/25 17:00 05/05/25 10:51 6 UNITS Dextrose 50 ml UD PRN IV 05/02/25 14:45 Furosemide 40 mg DAILY IV 05/02/25 15:00 05/05/25 09:51 40 MG Ceftriaxone Sodium 50 ml @ 100 mls/hr DAILY@09 IV 05/04/25 16:00 05/05/25 09:55 100 MLS/HR Albuterol 2.5 mg Q6HPRN PRN NEB 05/05/25 11:45 objective GENERAL: Alert and oriented x 3. No acute distress. EYES: PERRL, EOMI. Anicteric. HENT: Moist mucous membranes. LUNGS: Clear to auscultation bilaterally. CARDIOVASCULAR: Regular rate and rhythm. ABDOMEN: Soft, nontender and nondistended. EXTREMITIES: No edema. NEUROLOGIC: No focal neurological deficits. SKIN: Warm, dry. laboratory and microbiology Laboratory Tests 05/03/25 04:47 Test 05/03/25 04:47 Range/Units Serum Glucose 130 H 74-106 mg/dL Problem List Chest pain. CAD. Acute on Chronic HFpEF, NYHA class III. Hypertensive heart disease with a diastolic dysfunction. Pulmonary hypertension. Paroxysmal A fib with a 2 hypercoagulable state, NSR now. Dyslipidemia. Type 2 diabetes mellitus. Assessment/Plan Continued all current supportive medical care. Eliquis. Aspirin. Atenolol. Diuretics with Lasix. Morphine and Tylenol for pain management. Additional plan as per the hospital course. Plan discussed with: Patient DONNELL SARGENT MD May 05, 2025 14:34
== END 2025-05-05 18:00 | disposition home or self-care (01) | DRG 194 ==
LOC: ER 08:54 → OVERFLOW 13:55 → TELE-WESTW 17:22
PROVIDERS: ADMIT Internal Medicine; ATTEND Internal Medicine
DX: I11.0 Hypertensive heart disease with heart failure (principal); J15.69 Pneumonia due to other Gram-negative bacteria; J15.9 Unspecified bacterial pneumonia; I27.20 Pulmonary hypertension, unspecified; D68.59 Other primary thrombophilia; I48.0 Paroxysmal atrial fibrillation; I25.110 Atherosclerotic heart disease of native coronary artery with unstable angina pectoris; I50.33 Acute on chronic diastolic (congestive) heart failure; E78.5 Hyperlipidemia, unspecified; E11.9 Type 2 diabetes mellitus without complications; J98.11 Atelectasis; Z20.822 Contact with and (suspected) exposure to COVID-19; Z79.01 Long term (current) use of anticoagulants; Z79.84 Long term (current) use of oral hypoglycemic drugs; Z79.899 Other long term (current) drug therapy; Z82.49 Family history of ischemic heart disease and other diseases of the circulatory system; Z90.710 Acquired absence of both cervix and uterus; Z95.5 Presence of coronary angioplasty implant and graft; Z84.19 Family history of other disorders of kidney and ureter; Z98.891 History of uterine scar from previous surgery
CPT/HCPCS: 36415; 71045; 80048; 80053; 80076; 80307; 81001; 82962; 83036; 83735; 83880; 84484; 85025; 85379; 87426; 87804; 93005; 93306; 96374; 99291; G0378; J1815

== ENCOUNTER 2025-05-09 12:00 | Inpatient (IN) | payer MEDICAID ==
[~2025-05-09] VITALS: Ht 154.9 cm; Wt 61.1 kg
--- NOTE | 2025-05-09 12:29 | ED.PDOC ---
SOB-HPI HPI Comments 64-year-old female who comes in with chief complaint of shortness for breath over the last few days. The patient states that she was admitted to our hospital last Saturday with pneumonia as well as some shortness for breath. The patient was then discharged on . Over the last couple days the shortness for breath has worsened. She has had a clear cough but no fever or chills. Currently she is not on home oxygen. The patient has a low oxygen sat uration upon arrival. The patient is also complaining of some chest pressure that does not increase with deep respiration rate Chief Complaint: Shortness of Breath Time Seen by MD: 12:03 Primary Care Provider: ARIE Saleh notes: Nurses Notes, Medications, Allergies (No allergies to medicatio ns) Information Source: Patient Mode of Arrival: Ambulatory Severity: Moderate Timing: Days Duration: Since onset Context: At Rest PE Risk Factors: None History of: COPD Prehospital treatment: None Modifying Factors: Laying flat Associated Signs and Symptoms: Chest Pain Quality: Squeezing, Pressure Radiation: No Radiation Location: Substernal If cough with SOB: Productive, Clear Past Medical History PAST MEDICAL HISTORY: AFIB, CAD, CHF, DM, High Lipids, HTN Surgical History: , Hysterectomy, Tonsillectomy Surgical History (Other): Cardiac valve surgery 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 History: No Pertinent 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 OPERATOR History Family History Family History: Family hx of heart markel, Family hx of HTN Social History Smoker: Non-Smoker Alcohol: Denies ETOH Use Drugs: Denies Drug Use Lives In: Home Constitutional: denies: chills, diaphoresis, fatigue, fever, malaise, sweats, weakness, others EENTM: denies: blurred vision, double vision, ear bleeding, ear discharge, ear drainage, ear pain, ear ringing, eye pain, eye redness, hearing loss, mouth pain, mouth swelling, nasal discharge, nose bleeding, nose congestion, nose pain, photophobia, tearing, throat pain, throat swelling, voice changes, others Respiratory: reports: cough, shortness of breath; denies: hemoptysis, orthopnea, SOB at rest, SOB with excertion, stridor, wheezing, others Cardiovascular: reports: chest pain; denies: dizzy spells, diaphoresis, Dyspnea on exertion, edema, irregular heart beat, left arm pain, lightheadedness, palpitations, PND, syncope, others Gastrointestinal: denies: abdomen distended, abdominal pain, blood streaked bowels, constipated, diarrhea, dysphagia, difficulty swallowing, hematemesis, melena, nausea, poor appetite, poor fluid intake, rectal bleeding, rectal pain, vomiting, others Genitourinary: denies: abnormal vagina bleeding, burning, dyspareunia, dysuria, flank pain, frequency, hematuria, incontinence, pain, , vagina discharge, urgency, others Neurological: denies: dizziness, fainting, headache, left sided numbness, left sided weakness, numbness, paresthesia, pre-existing deficit, right sided numbness, right sided weakness, seizure, speech problems, tingling, tremors, weakness, others Musculoskeletal: denies: back pain, gout, joint pain, joint swelling, muscle pain, muscle stiffness, neck pain, others Integumetry: denies: bruises, change in color, change in hair/nails, dryness, laceration, lesions, lumps, rash, wounds, others Allergic/Immunocompromised: denies: Difficulty Healing, Frequent Infections, Hives, Itching, others Hematologic/Lymphatic: denies: anemia, blood clots, easy bleeding, easy bruising, swollen glands, others Endocrine: denies: excessive hunger, excessive sweating, excessive thirst, excessive urination, flushing, intolerance to cold, intolerance to heat, unexplained weight gain, unexplained weight loss, others Psychiatric: denies: anxiety, bipolar disorder, depression, hopeless, panic disorder, schizophrenia, sleepless, suicidal, others Physical Exam General Appearance: Moderate Distress HEENT: Normal ENT Inspection, Pharynx Normal, TMs Normal Neck: Full Range of Motion, Non-Tender, Normal, Normal Inspection Respiratory: Chest Non-Tender, Decreased Breath Sounds, Lungs Clear, No Accessory Muscle Use, Respiratory Distress Cardiovascular: No Edema, No JVD, No Murmur, No Gallop, Normal Peripheral Pulses, Regular Rate/Rhythm Breast Exam: Deferred Gastrointestinal: No Organomegaly, Non Tender, No Pulsatile Mass, Normal Bowel Sounds, Soft Genitalia: Deferred Pelvic: Deferred Rectal: Deferred Extremities: No calf tenderness, Normal capillary refill, Normal inspection, Normal range of motion, Non-tender, No pedal edema Musculoskeletal : Apperance: Normal Neurologic: Alert, cement sack breaker II-XII nml as Tested, No Motor Deficits, Normal Affect, Normal Mood, No Sensory Deficits Cerebellar Function: Normal Reflexes: Normal Skin: Dry, Normal Color, Warm Lymphatic: No Adenopathy EKG EKG : Pulse Rate (adult): 64 [place]: Normal Cardiac Rhythm: NSR Block: None ST: Normal Was a procedure done? Was a procedure done?: No Differential Dx Differential Diagnosis: Asthma, Bronchitis, Cardiogenic Shock, CHF, COPD, Pneumonia X-Ray, Labs, Meds, VS Vital Signs Date Time Temp Pulse Resp B/P (MAP) Pulse Ox O2 Delivery O2 Flow Rate FiO2 05/09/25 14:29 78 05/09/25 13:08 80 05/09/25 13:08 98.1 80 16 132/90 (104) 99 98.1 05/09/25 12:02 98.3 110 18 161/90 93 98.3 Lab Test 05/09/25 13:24 05/09/25 12:35 Range/Units Troponin I High Sensitivity 5 4 </=34 ng/L White Blood Count 4.8 # 4.4-10.8 10^3/uL Red Blood Count 4.46 4.0-5.20 10^6/uL Hemoglobin 13.8 12.2-16.2 g/dL Hematocrit 41.3 36.0-46.0 % Mean Corpuscular Volume 92.5 80.0-100.0 fL Mean Corpuscular Hemoglobin 31.0 28.0-32.0 pg Mean Corpuscular Hemoglobin Concent 33.5 32.0-36.0 g/dL Red Cell Distribution Width 14.2 11.8-14.3 % Platelet Count 251 140-450 10^3/uL Mean Platelet Volume 9.2 6.9-10.8 fL Neutrophils (%) (Auto) 65.4 37.0-80.0 % Lymphocytes (%) (Auto) 26.2 10.0-50.0 % Monocytes (%) (Auto) 5.8 0.0-12.0 % Eosinophils (%) (Auto) 1.8 0.0-7.0 % Basophils (%) (Auto) 0.8 0.0-2.0 % Neutrophils # (Auto) 3.1 1.6-8.6 10 ^3/uL Lymphocytes # (Auto) 1.2 0.4-5.4 10 ^3/uL Monocytes # (Auto) 0.3 0-1.3 10 ^3/uL Eosinophils # (Auto) 0.1 0-0.8 10 ^3/uL Basophils # (Auto) 0 0-0.2 10 ^3/uL Nucleated Red Blood Cells 0.1 % Sodium Level 141 136-145 mmol/L Potassium Level 3.8 3.5-5.1 mmol/L Chloride Level 104 98-107 mmol/L Carbon Dioxide Level 28 20-31 mmol/L Anion Gap 9 5-15 Blood Urea Nitrogen 13 9-23 mg/dL Creatinine 0.60 0.550-1.02 mg/dL Glomerular Filtration Rate Calc 100 >90 mL/min BUN/Creatinine Ratio 21.7 H 10.0-20.0 Serum Glucose 159 H 74-106 mg/dL Calcium Level 8.8 8.7-10.4 mg/dL B-Type Natriuretic Peptide 182.96 0-100 pg/mL [place] [id number] Ph: [phone] DIAGNOSTIC IMAGING Diagnostic Imaging Report : [id number] Signed PATIENT: JAMIE BAIN ACCT: [id number] UNIT: [id number] : 1960 LOC: ER ROOM / BED: / AGE / SEX: 64 / F ADM STATUS: REG ER SERVICE 1219 ORDERING PHYSICIAN: ARACELIS SMITH MD PROCEDURE(s): CXR2 - CHEST TWO VIEWS ROUTINE REASON: sob ORDER NUMBER(s): [id number], ACCESSION NUMBER(s): [id number] XY CHEST TWO VIEWS ROUTINE CLINICAL HISTORY: sob COMPARISON: None TECHNIQUE: Frontal and lateral view of the chest was obtained FINDINGS: Lines and Tubes: None Lungs: Mild bilateral perihilar peribronchial thickening may represent bronchitis. Cardiac size is unchanged from 05/02/2025. Mitral leaflet clip is visualized Pleura: No effusion. No pneumothorax. Cardiomediastinal contours: Unremarkable Bones: No acute osseous abnormality. Bony spondylosis throughout the thoracic spine IMPRESSION: 1. Radiographically findings most consistent with bronchitis. Cardiac size is not significantly changed from May 02, 2025 and is within normal limits making congestive failure less likely. 2. Correlate clinically. 3. Mitral leaflet clip in place. Hep-Lock was established The patient's CBC and chemistry panel are within normal limits. The troponin level x2 is negative The patient remains hypoxic. It seems that the patient is not stable enough to go home because of the hypoxia The patient is remaining on oxygen here in the emergency department's Images Reviewed?: Images reviewed and evaluated by me Time of 1ST Reevaluation: 12:29 Reevaluation 1ST: Unchanged Patient Education/Counseling: Diagnosis, Treatment, Prognosis Family Education/Counseling: No Family Present SEPSIS Sepsis Screen Date sepsis recognized/suspect: May 09, 2025 Time Sepsis recognized/suspect: 1207 Recent Procedure: No On Antibiotic Therapy: No Respiratory Rate >20: No Heart Rate >90: No Temp<36 C (96.8 F) or >38.3 C: No SBP <90 or MAP <65 mmHG: No New Acute Mental Status Change: No Is the patient on CPAP, BIPAP,: No Physician Orders Urinalysis (05/09/25 12:19) Chest Two Views Routine (05/09/25 12:19) Heplock Iv (05/09/25 12:19) Mechanical Piping Designer (05/09/25 12:19) Blood Pressure (05/09/25 12:19) Pulse Oximetry (05/09/25 12:19) Electrocardigram (05/09/25 12:19) Electrocardigram (05/09/25 13:19) Electrocardigram (05/09/25 15:19) Vital Signs Date Time Temp Pulse Resp B/P (MAP) Pulse Ox O2 Delivery O2 Flow Rate FiO2 05/09/25 14:29 78 05/09/25 13:08 80 05/09/25 13:08 98.1 80 16 132/90 (104) 99 98.1 05/09/25 12:02 98.3 110 18 161/90 93 98.3 Laboratory Tests Test 05/09/25 12:35 White Blood Count 4.8 10^3/uL (4.4-10.8) # Departure 1 Departure Time of Disposition: 17:56 Impression: Primary Impression: Acute respiratory failure Qualified Codes: J96.01 - Acute respiratory failure with hypoxia Disposition: 09 ADMITTED INPATIENT Admit to: [facility] Condition: Fair Critical Care Note Critical Care Time?: No Stability Stability form required: Yes Unstable for transfer: Telemetry monitoring (Telemetry monitoring required), ED Physician Assesment (Clinical assesment) Heart Score Heart Score: Heart Score Response (Comments) Value History N/A 0 EKG N/A 0 Age N/A 0 Risk Factors N/A 0 Troponin N/A 0 Total 0 I personally scribed for ARACELIS SMITH MD ([email or web address]) on 05/09/25 at 13:19. Electronically submitted by Nirali [facility]). ARACELIS SMITH MD May 09, 2025 12:29
--- NOTE | 2025-05-09 12:49 | DVH ---
XY CHEST TWO VIEWS ROUTINE CLINICAL HISTORY: sob COMPARISON: None TECHNIQUE: Frontal and lateral view of the chest was obtained FINDINGS: Lines and Tubes: None Lungs: Mild bilateral perihilar peribronchial thickening may represent bronchitis. Cardiac size is un changed from 05/02/2025. Mitral leaflet clip is visualized Pleura: No effusion. No pneumothorax. Cardiomediastinal contours: Unremarkable Bones: No acute osseous abnormality. Bony spondylosis throughout the thoracic spine IMPRESSION: 1. Radiographically findings most consistent with bronchitis. Cardiac size is not significantly kerr ed from May 02, 2025 and is within normal limits making congestive failure less likely. 2. Correlate clinically. 3. Mitral leaflet clip in place.
[2025-05-09 12:56] LABS: Hematocrit 41.3 % (36.0-46.0); Hemoglobin 13.8 g/dL (12.2-16.2); Mean Corpuscular Hemoglobin 31.0 pg (28.0-32.0); Mean Corpuscular Volume 92.5 fL (80.0-100.0); Nucleated Red Blood Cells % 0.1 %
[2025-05-09 13:03] LABS: Chloride 104 mmol/L (98-107); Potassium 3.8 mmol/L (3.5-5.1); Sodium 141 mmol/L (136-145)
[2025-05-09 13:04] LABS: Anion Gap 9 (5-15); Calcium 8.8 mg/dL (8.7-10.4); Carbon Dioxide 28 mmol/L (20-31)
[2025-05-09 13:09] LABS: BUN/Creatinine Ratio 21.7 (10.0-20.0); Blood Urea Nitrogen 13 mg/dL (9-23)
[2025-05-09 13:42] LABS: Glucose 159 mg/dL (74-106)
[2025-05-09] MEDS ORDERED: ONDANSETRON HCL 4 MG/2 ML VIAL IV PRN (19:00)
[2025-05-09] MEDS ORDERED: DEXTROSE (50%) 50ML SYRG IV PRN (19:00)
[2025-05-09 19:28] VITALS: BP 132/90; PULSE 64; RESP 16; TEMP 98.1; O2SAT 99
--- NOTE | 2025-05-09 20:36 | ECG ---
[facility] Test Date: 2025-05-09 Test Time: 14:29:20 Pat Name: JAMIE BAIN Department: ED Room: 0295 Gender: F Pharmacy Operations Coordinator: MARGARITA : 1960 Requested By: ARACELIS SMITH Order Number: [id number] Reading MD: Mathieu Hernandez Measurements Intervals [place] Rate: 78 P: 71 IN: 162 QRS: 68 QRSD: 75 T: 51 QT: 374 QTc: 426 Interpretive Statements Sinus rhythm Low voltage, extremity and precordial leads Anteroseptal infarct, old Electronically Signed On 05-11-2025 15:08:29 PDT by Mathieu Hernandez Please click the below link to view image of tracing.
[2025-05-09 21:28] VITALS: BP 149/91; PULSE 85; RESP 19; TEMP 96.7; O2SAT 97
--- NOTE | 2025-05-09 21:40 | DVHHP2 ---
History of Present Illness Reason for Visit: Shortness for breath History of Present Illness 64-year-old female presents for evaluation of shortness for breath. Patient reports being discharged four days ago after being admitted and treated for pneumonia. She reports worsening shortness for breath over the past two days. States having a productive cough. Denies fever or chills. No chest pain. Past Medical History CHF, CAD, atrial fibrillation, dyslipidemia, hypertension, diabetes mellitus Past Surgical History Hysterectomy, tonsillectomy, , Family History Heart disease and hypertension Smoke: No ALCOHOL: none Drugs: None Lives: with Family Review of Systems Review of Systems Review of systems are currently negative otherwise addressed in HPI. Allergies: Coded Allergies: NO KNOWN ALLERGIES (Unverified , 05/02/25) Medications Current Medications Medications Dose Ordered Sig/Flakito Route Start Time Stop Time Status Last Admin Dose Admin Azithromycin 250 ml @ 125 mls/hr DAILY IV 05/10/25 10:00 Atenolol 50 mg DAILY PO 05/10/25 10:00 Atorvastatin Calcium 20 mg HS PO 05/09/25 22:00 Diltiazem HCl 120 mg DAILY PO 05/10/25 10:00 Empaglifozin 25 mg DAILY PO 05/10/25 10:00 Albuterol 2.5 mg Q6HPRN PRN NEB 05/09/25 19:00 Diagnostic Test (Pha) 1 strip ACHS 05/09/25 22:00 Insulin Human Regular ACHS SC 05/09/25 22:00 Dextrose 50 ml UD PRN IV 05/09/25 19:00 Ondansetron HCl 4 mg Q4HP PRN IV 05/09/25 19:00 Acetaminophen 650 mg Q6HP PRN PO 05/09/25 19:00 Exam Vital Signs Vital Signs Date Time Temp Pulse Resp B/P (MAP) Pulse Ox O2 Delivery O2 Flow Rate FiO2 05/09/25 21:14 98.3 73 20 144/70 (94) 99 98.3 05/09/25 19:28 0.0 21 Exam Gen: 64-year-old female in mild distress Skin: Warm, dry, normal color and texture, no rash. HEENT: Normocephalic atraumatic, mucous membranes moist and pink. Neck: Cervical and supraclavicular nodes normal without enlargement, trachea is midline, thyroid gland is normal without masses. Pulmonary: Clear to auscultation and percussion bilaterally. Cardiac: Regular rate and rhythm. No murmur Abdomen: Soft, nontender, nondistended, bowel sounds present all 4 quadrants, no guarding, no rigidity, no organomegaly. Extremities: No cyanosis, clubbing, no edema Neuro: Cranial nerves II through XII grossly intact, normal affect and speech, no focal motor deficits. Labs/Xrays ORDERING PHYSICIAN: ARACELIS SMITH MD PROCEDURE(s): CXR2 - CHEST TWO VIEWS ROUTINE REASON: sob ORDER NUMBER(s): [id number], ACCESSION NUMBER(s): [id number] CHEST TWO VIEWS ROUTINE CLINICAL HISTORY: sob COMPARISON: None TECHNIQUE: Frontal and lateral view of the chest was obtained FINDINGS: Lines and Tubes: None Lungs: Mild bilateral perihilar peribronchial thickening may represent bronchitis. Cardiac size is unchanged from 05/02/2025. Mitral leaflet clip is visualized Pleura: No effusion. No pneumothorax. Cardiomediastinal contours: Unremarkable Bones: No acute osseous abnormality. Bony spondylosis throughout the thoracic spine IMPRESSION: 1. Radiographically findings most consistent with bronchitis. Cardiac size is not significantly changed from May 02, 2025 and is within normal limits making congestive failure less likely. 2. Correlate clinically. 3. Mitral leaflet clip in place. Labs Test 05/09/25 19:05 05/09/25 13:24 05/09/25 12:35 Range/Units D-Dimer, Quantitative 0.19 0.0-0.49 mg/L FEU Troponin I High Sensitivity 5 </=34 ng/L White Blood Count 4.8 # 4.4-10.8 10^3/uL Red Blood Count 4.46 4.0-5.20 10^6/uL Hemoglobin 13.8 12.2-16.2 g/dL Hematocrit 41.3 36.0-46.0 % Mean Corpuscular Volume 92.5 80.0-100.0 fL Mean Corpuscular Hemoglobin 31.0 28.0-32.0 pg Mean Corpuscular Hemoglobin Concent 33.5 32.0-36.0 g/dL Red Cell Distribution Width 14.2 11.8-14.3 % Platelet Count 251 140-450 10^3/uL Mean Platelet Volume 9.2 6.9-10.8 fL Neutrophils (%) (Auto) 65.4 37.0-80.0 % Lymphocytes (%) (Auto) 26.2 10.0-50.0 % Monocytes (%) (Auto) 5.8 0.0-12.0 % Eosinophils (%) (Auto) 1.8 0.0-7.0 % Basophils (%) (Auto) 0.8 0.0-2.0 % Neutrophils # (Auto) 3.1 1.6-8.6 10 ^3/uL Lymphocytes # (Auto) 1.2 0.4-5.4 10 ^3/uL Monocytes # (Auto) 0.3 0-1.3 10 ^3/uL Eosinophils # (Auto) 0.1 0-0.8 10 ^3/uL Basophils # (Auto) 0 0-0.2 10 ^3/uL Nucleated Red Blood Cells 0.1 % Sodium Level 141 136-145 mmol/L Potassium Level 3.8 3.5-5.1 mmol/L Chloride Level 104 98-107 mmol/L Carbon Dioxide Level 28 20-31 mmol/L Anion Gap 9 5-15 Blood Urea Nitrogen 13 9-23 mg/dL Creatinine 0.60 0.550-1.02 mg/dL Glomerular Filtration Rate Calc 100 >90 mL/min BUN/Creatinine Ratio 21.7 H 10.0-20.0 Serum Glucose 159 H 74-106 mg/dL Calcium Level 8.8 8.7-10.4 mg/dL B-Type Natriuretic Peptide 182.96 0-100 pg/mL SEPSIS Sepsis Screen Date sepsis recognized/suspect: May 09, 2025 Time Sepsis recognized/suspect: 2114 Recent Procedure: No On Antibiotic Therapy: No Respiratory Rate >20: No Heart Rate >90: No Temp<36 C (96.8 F) or >38.3 C: No SBP <90 or MAP <65 mmHG: No New Acute Mental Status Change: No Is the patient on CPAP, BIPAP,: No Physician Orders Azithromycin 500mg/ 250ml (Zithromax 50 (05/10/25 10:00) Admit (05/09/25 18:56) Atenolol Tablet (Tenormin Tablet) (05/10/25 10:00) Atorvastatin (Lipitor) (05/09/25 22:00) Diltiazem Er Capsule (Cardizem Er Capsul (05/10/25 10:00) Empagliflozin (Jardiance) (05/10/25 10:00) Albuterol Medneb (Ventolin Medneb) (05/09/25 19:00) Basic Metabolic Panel (05/10/25 04:00) Glucose Blood (Accu-Chek Comfort Curve T (05/09/25 22:00) Insulin R (Human) (Insulin R) (05/09/25 22:00) Dextrose 50% Syringe (05/09/25 19:00) Ondansetron Hcl (Zofran) (05/09/25 19:00) Complete Blood Count (05/10/25 04:00) Cardiac Diet-2gna,Lofat,Lochol (05/10/25 Breakfast) Condition: Stable (05/09/25 18:58) Acetaminophen Tablet (Tylenol Tablet) (05/09/25 19:00) Bedrest With Bathroom Privileg (05/09/25 18:58) Vital Signs Date Time Temp Pulse Resp B/P (MAP) Pulse Ox O2 Delivery O2 Flow Rate FiO2 05/09/25 21:14 98.3 73 20 144/70 (94) 99 98.3 05/09/25 19:28 98.1 64 16 132/90 99 0.0 21 98.1 05/09/25 17:57 64 05/09/25 14:29 78 Laboratory Tests Test 05/09/25 12:35 White Blood Count 4.8 10^3/uL (4.4-10.8) # Assessment/Plan Assessment/Plan Assessment Acute pneumonitis Acute respiratory distress Diabetes mellitus Hypertension Plan Admit the patient to Med surge to the hospitalist Azithromycin Med nebs Resume home medications Continue treatment per orders. Plan discussed with: Patient My Orders Orders - DANIEL ZELAYA Procedure Category Date Status Time Azithromycin 500mg/ PHA 05/10/25 In Process 250ml (Zithromax 50 10:00 Admit ADMIT 05/09/25 Transmitted 18:56 Atenolol Tablet PHA 05/10/25 In Process (Tenormin Tablet) 10:00 Atorvastatin (Lipitor) PHA 05/09/25 In Process 22:00 Diltiazem Er Capsule PHA 05/10/25 In Process (Cardizem Er Capsul 10:00 Empagliflozin PHA 05/10/25 In Process (Jardiance) 10:00 Albuterol Medneb PHA 05/09/25 In Process (Ventolin Medneb) 19:00 Basic Metabolic Panel LAB 05/10/25 Verified 04:00 Glucose Blood PHA 05/09/25 In Process (Accu-Chek Comfort 22:00 Insulin R (Human) PHA 05/09/25 In Process (Insulin R) 22:00 Dextrose 50% Syringe PHA 05/09/25 In Process 19:00 Ondansetron Hcl PHA 05/09/25 In Process (Zofran) 19:00 Complete Blood Count LAB 05/10/25 Verified 04:00 Cardiac DIET 05/10/25 Transmitted Diet-2gna,Lofat,Lochol Breakfast Condition: Stable SOLO 05/09/25 In Process 18:58 Acetaminophen Tablet PHA 05/09/25 In Process (Tylenol Tablet) 19:00 Bedrest With Bathroom SOLO 05/09/25 In Process Privileg 18:58 Date of Service: May 09, 2025 Billing Provider: DANIEL ZELAYA Common Visit Codes: [id number] INP/OBS CARE (HIGH) DANIEL ZELAYA May 09, 2025 21:40
[2025-05-09] MEDS: AZITHROMYCIN 500MG/ 250ML 250 ML IV ONE ×2 (22:06→22:23)
[2025-05-09] MEDS: ATORVASTATIN 20 MG TAB PO SCH (22:07)
[2025-05-09] MEDS: InsuLIN REG 1unit/0.01ml Soln (100units/ml) SC SCH (22:08)
[2025-05-09] MEDS: ACETAMINOPHEN 325 MG TAB PO PRN (22:22)
[2025-05-09] MEDS: ACCU-CHEK COMFORT CURVE STRIP VI SCH (22:23)
[2025-05-09 23:16] VITALS: BP 149/91; PULSE 76; PULSE 89; RESP 20; TEMP 98.1; O2SAT 96; O2SAT 98
[2025-05-09 23:26] VITALS: PULSE 113; RESP 20; O2SAT 95
[2025-05-09] MEDS: ALBUTEROL SULF 2.5 MG/0.5ML(0.5%) NEB SOLN NEB PRN (23:27)
[2025-05-09 23:36] VITALS: PULSE 120; RESP 20; O2SAT 97
[2025-05-10] VITALS (14 sets, daily range): BP systolic 108–155; BP diastolic 70–96; PULSE 64–139; RESP 14–19; TEMP 96.7–98.1; O2SAT 95–100
[2025-05-10] MEDS: guaiFENesin-DM 100/10mg/5ml SYR PO PRN (00:37)
[2025-05-10] MEDS: HYDROcodone-ACET 7.5/325MG TAB PO ONE (00:38)
[2025-05-10 06:50] LABS: Hematocrit 36.7 % (36.0-46.0); Hemoglobin 12.4 g/dL (12.2-16.2); Mean Corpuscular Hemoglobin 31.1 pg (28.0-32.0); Mean Corpuscular Volume 92.0 fL (80.0-100.0); Nucleated Red Blood Cells % 0.0 %
[2025-05-10 06:55] LABS: Potassium 4.1 mmol/L (3.5-5.1); Sodium 145 mmol/L (136-145)
[2025-05-10 06:56] LABS: Anion Gap 7 (5-15); Carbon Dioxide 30 mmol/L (20-31)
[2025-05-10 07:01] LABS: BUN/Creatinine Ratio 29.4 (10.0-20.0); Blood Urea Nitrogen 15 mg/dL (9-23)
[2025-05-10 07:02] LABS: Calcium 8.4 mg/dL (8.7-10.4); Chloride 108 mmol/L (98-107); Glucose 133 mg/dL (74-106)
[2025-05-10] MEDS ORDERED: AZITHROMYCIN 500MG/ 250ML 250 ML IV SCH (10:00)
[2025-05-10] MEDS ORDERED: EMPAGLIFLOZIN 10 MG TAB PO SCH (10:00)
[2025-05-10] MEDS: EMPAGLIFLOZIN 10 MG TAB PO SCH (11:02)
[2025-05-10] MEDS: ATENOLOL 25 MG TAB PO SCH (11:03)
[2025-05-10] MEDS: DOXYCYCLINE 100MG/100ML 100 ML IV SCH (11:04)
[2025-05-10] MEDS: dilTIAZem 120MG ER CAP PO SCH (11:04)
[2025-05-10] MEDS: ENOXAPARIN SOD 60 MG/0.6 ML SYRINGE SC SCH (11:05)
[2025-05-10] MEDS: INSULIN LANTUS (GLARGINE) 1 /0.01ml (100units/ml) SC SCH (11:06)
[2025-05-10] MEDS: LEVALBUTEROL HCL 1.25 MG/3 ML NEB NEB SCH ×2 (11:41→18:52)
[2025-05-10] MEDS: IPRATROPIUM BROM 0.5 MG/2.5ML INH SOL NEB SCH (11:41)
[2025-05-10] MEDS: FUROSEMIDE 40 MG/4 ML VIAL IV ONE (12:16)
[2025-05-10 12:30] LABS: Alanine Aminotransferase 29.0 U/L (7-40); Alkaline Phosphatase 106.0 U/L (46-116); Total Protein 5.7 g/dL (5.7-8.2)
[2025-05-10 12:31] LABS: Albumin 3.5 g/dL (3.2-4.8); Bilirubin, Direct 0.2 mg/dL (<0.3); Bilirubin, Total 0.4 mg/dL (0.2-1.0)
--- NOTE | 2025-05-10 13:56 | DVHPNRES ---
Progress Note Date Seen: May 10, 2025 Resident Creating Document: CONRADO REDDY Medical Necessity Reason Pt with a Central, PICC or Fol: No (RN) Subjective Review of Systems Patient is a Maltese-speaking 64-year-old female with past medical history of CHF, CAD, atrial fibrillation, dyslipidemia, hypertension, diabetes mellitus, presented to [facility] ED with complaint of shortness of breath. Patient reports shortness of breath that began two days ago. She states she is unable to sleep lying flat due to worsening dyspnea and has been sleeping in a seated position to alleviate symptoms. She reports being discharged four days ago after hospitalization for pneumonia. She underwent mitral valve replacement on 04/21/2025. Since discharge, she reports worsening dyspnea and a productive cough with clear sputum. She denies fever, chills, or chest pain. Patient reported recently underwent cardiac surgery at [facility] for leaky valve and then after the procedure she was seen by Dr. Law her bread supervisor and at that time she did not have any symptoms. She states that her shortness of breath has progressively worsened since discharge. She describes having a productive cough with clear sputum. She denies fever, chills, or chest pain. Past medical history: CHF, CAD, atrial fibrillation, dyslipidemia, hypertension, type 2 DM Past surgical history: Hysterectomy, tonsillectomy, , Mitral valve replacement on 04/21/2025 Family History: Heart disease and hypertension Past [facility]-05[facility]05 Social & Personal history: Denies smoking, alcohol and other drug abuse Allergies: No known allergies Home medications: Jardiance 25 mg, atenolol 50 mg, magnesium oxide 400 mg, Mounjaro, diltiazem XR 120, Lantus, omeprazole 20, Lipitor 20, Eliquis 5 mg Patient seen and examined at bedside. Patient is alert and oriented to time, place person and responding to all questions. Eyes: No Pain, No Vision change, No Conjunctivae inflammation, No Eyelid inflammation, No Other, No Redness ENT: No Ear pain, No Ear discharge, No Nose pain, No Nose discharge, No Nose congestion, No Mouth pain, No Mouth swelling, No Throat pain, No Throat swelling, No Other Cardiovascular: Chest Pain, No Palpitations, No Orthopnea, No Paroxysmal No Dyspnea, No Edema, No Lt Headedness, No Other Respiratory: Cough, No Dry, Shortness of breath, No SOB with exertion, No Wheezing, No Hemoptysis, No Pleuritic Pain, No Sputum, No Other Gastrointestinal: No Nausea, No Vomiting, No Abdominal Pain, No Diarrhea, No Constipation, No Melena, No Hematochezia, No Other Genitourinary: No Dysuria, No Frequency, No Incontinence, No Hematuria, No Retention, No Other Musculoskeletal: No other, No neck pain, No shoulder pain, No arm pain, No back pain, No hand pain, No leg pain, No foot pain Skin: No Rash, No Lesions, No Jaundice, No Bruising, No Other Objective vital signs Vital Sign Date Time Temp Pulse Resp B/P (MAP) Pulse Ox O2 Delivery O2 Flow Rate FiO2 05/10/25 12:16 133/88 05/10/25 11:57 75 14 100 05/10/25 10:00 Nasal Cannula* 2 28 05/10/25 08:37 96.7 96.7 Total Intake and Output 05/09/25 05/09/25 05/10/25 15:00 23:00 07:00 Intake Total 300 ml Balance 300 ml medications Current Medications Medications Dose Ordered Sig/Flakito Route Start Time Stop Time Status Last Admin Dose Admin Atenolol 50 mg DAILY PO 05/10/25 10:00 05/10/25 11:03 50 MG Atorvastatin Calcium 20 mg HS PO 05/09/25 22:00 05/09/25 22:07 20 MG Diltiazem HCl 120 mg DAILY PO 05/10/25 10:00 05/10/25 11:04 120 MG Diagnostic Test (Pha) 1 strip ACHS 05/09/25 22:00 05/10/25 12:11 1 STRIP Insulin Human Regular ACHS SC 05/09/25 22:00 05/10/25 12:11 3 UNITS Dextrose 50 ml UD PRN IV 05/09/25 19:00 Ondansetron HCl 4 mg Q4HP PRN IV 05/09/25 19:00 Acetaminophen 650 mg Q6HP PRN PO 05/09/25 19:00 05/09/25 22:22 650 MG Guaifenesin/ Dextromethorphan 10 ml Q4HP PRN PO 05/10/25 00:30 05/10/25 00:37 10 ML Empaglifozin 10 mg DAILY PO 05/10/25 10:00 05/10/25 11:02 10 MG Insulin Glargine 12 units DAILY@1000 SC 05/10/25 10:05/10/25 11:06 12 UNITS Doxycycline Hyclate 100 ml @ 50 mls/hr Q12H IV 05/10/25 10:00 05/10/25 11:04 50 MLS/HR Enoxaparin Sodium 60 mg Q12HR SC 05/10/25 10:00 05/10/25 11:05 60 MG Ipratropium [place] 0.5 mg Q6HR NEB 05/10/25 12:00 05/10/25 11:41 0.5 MG Levalbuterol HCl 1.25 mg Q6HR NEB 05/10/25 18:00 Examination General Appearance: Cooperative. Well developed. Well nourished. NAD Head Exam: Normal inspection Neck Exam: Normal inspection. Non-tender. Normal alignment Pulmonary/Respiratory: Chest Non-Tender, Decreased Breath Sounds, Lungs Clear, No Accessory Muscle Use, Respiratory Distress Cardiovascular/Chest: Regular rate and rhythm. No murmurs. No JVD. Peripheral Pulses: 2+ Radial (R). 2+ Radial (L). 2+ Pedal (R). 2+ Pedal (L) Abdominal Exam: Normal bowel sounds. Soft. normal abdomen, no visible veins, Nontender. No hepatospenomegaly. No masses Ankle Exam: Negative ankle edema Lower extremities: Negative lower extremity edema Neuro/Mental Status: A&O x4. Coherent. Thoughts/Psych: Normal thought pattern. Appropriate mood and affect. Good judgement and insight Skin Exam: Normal inspection. Normal color. Warm. Dry laboratory and microbiology Laboratory Tests 05/10/25 06:00 Test 05/10/25 06:00 Range/Units Serum Glucose 133 H 74-106 mg/dL Labs and/or images reviewed: Labs reviewed by me, Image(s) reviewed by me Problem List/Assessment/Plan Problem List/Assessment/Plan # Acute pneumonia secondary to gram positive and negative # Acute respiratory distress # Acute hypoxic respiratory failure # Acute on chronic decompensates congestive heart failure # history of mitral valve replacement - Chest X-ray: Radiographically findings most consistent with bronchitis. Cardiac size is not significantly changed from May 02, 2025 and is within normal limits making congestive failure less likely. - Doxycycline - Tylenol 650 mg - Dextromethorphan 10mg - Levalbuterol 1.25 mg - Ipratropium 0.5 mg # Paroxysmal A fib with a 2 hypercoagulable state, NSR now - EKG- Sinus rhythm. Low voltage, extremity and precordial leads. Anteroseptal infarct, old - telemetry - Atenolol 25 mg - continue Eliquis # Hypertension - Diltiazem 120 mg # Dyslipidemia - continue Lipitor # uncontrolled type 2 diabetes mellitus with hyperglycemia - A1c - Lantus - mild sliding scale - Dextrose DVT prophylaxis: Lovenox 40mg Goals of care: Full code, discussed for >16 minutes on 05/10/25 Plan discussed with patient Plan discussed with Dr. Galeano Plan discussed with: Patient, Other (RN) My Orders My Orders Orders - CONRADO REDDY Procedure Category Date Status Time Respiratory Culture GARCIA 05/10/25 Logged W/ Gs 12:04 Levalbuterol Hcl PHA 05/10/25 In Process (Xopenex Medneb) 18:00 Complete Blood Count LAB 05/11/25 Verified 04:00 Comprehensive LAB 05/11/25 Verified Metabolic Panel 04:00 Date of Service: May 10, 2025 Billing Provider: ADRIENNE GALEANO MD Common Visit Codes: [id number] INP/OBS CARE(HIGH) CONRADO REDDY May 10, 2025 13:56 ADRIENNE GALEANO MD May 10, 2025 23:06
[2025-05-10 15:28] LABS: COVID19 ANTIGEN SOFIA FIA NEGATIVE (NEGATIVE)
[2025-05-10] MEDS: KETOROLAC TROMETH 30 MG/ML 1ML VIAL IV ONE (23:21)
[2025-05-11] VITALS (15 sets, daily range): BP systolic 95–132; BP diastolic 53–84; PULSE 63–90; RESP 14–18; TEMP 97.5–98.2; O2SAT 89–100
[2025-05-11 05:52] LABS: Hematocrit 37.4 % (36.0-46.0); Hemoglobin 12.6 g/dL (12.2-16.2); Mean Corpuscular Hemoglobin 30.9 pg (28.0-32.0); Mean Corpuscular Volume 91.6 fL (80.0-100.0); Nucleated Red Blood Cells % 0.2 %
[2025-05-11 06:00] LABS: Alanine Aminotransferase 23 U/L (7-40); Albumin 3.6 g/dL (3.2-4.8); Alkaline Phosphatase 95 U/L (46-116); Anion Gap 10 (5-15); BUN/Creatinine Ratio 26.4 (10.0-20.0); Blood Urea Nitrogen 14 mg/dL (9-23); Carbon Dioxide 28 mmol/L (20-31); Chloride 104 mmol/L (98-107); Glucose 96 mg/dL (74-106); Sodium 142 mmol/L (136-145); Total Protein 6.1 g/dL (5.7-8.2)
[2025-05-11 06:01] LABS: Calcium 8.4 mg/dL (8.7-10.4); Potassium 3.1 mmol/L (3.5-5.1)
[2025-05-11 06:10] LABS: Bilirubin, Total 0.6 mg/dL (0.2-1.0)
[2025-05-11] MEDS: POTASSIUM EFFERVESENT TAB 25 MEQ PO ONE (06:55)
[2025-05-11] MEDS: IOHEXOL 350 MG/ML 100ML IJ ONE (12:38)
--- NOTE | 2025-05-11 13:41 | DVH ---
Indication: chest pain, sob, r/o PE Technique: CT axial images of the chest are obtained with intravenous contrast per CT angiogram prot ocol. Coronal and sagittal reformats were obtained. Radiation Dose Information: CTDI volume is 23.68 mGy. Dose-length product is 439.18 mGy*cm Comparison: None FINDINGS: There is no filling defect within the main left right pulmonary arteries. The segmental and subsegme ntal branches are suboptimally opacified/ characterized. The trachea is patent. No pneumothorax. Pulmonary ground-glass attenuation bilaterally. Moderate bila teral pleural effusions, [id number]-left. Bilateral lower lobe atelectasis/consolidation. Heart size at the upper limits of normal. Mitral valvular clip. 2.2 cm subcarinal lymph node. Right hilar lymph node measuring 11 mm. Left hilar lymph node measuring 12 mm. Pretracheal lymph node liat uring 11 mm. No supraclavicular axillary lymphadenopathy. Thyroid isthmus 2.7 cm. Reflux of contrast in the hepatic veins and IVC. No aggressive osseous process. IMPRESSION: No evidence for large pulmonary embolism. Moderate bilateral pleural effusions. Bilateral lower lobe consolidation/atelectasis. Pulmonary ground-glass attenuation bilaterally which can be secondary to edema, hypoventilatory kerr es. Reflux contrast hepatic veins and IVC which can be seen with right heart dysfunction. Mediastinal/ hilar lymphadenopathy which can be secondary to infectious, inflammatory, neoplastic pedro luis ologies. Thyroid isthmus nodule measuring 2.7 cm. Recommend thyroid ultrasound which can be done in the noneme rgent setting. Other findings as described
--- NOTE | 2025-05-11 16:07 | DVHPNRES ---
Progress Note Date Seen: May 11, 2025 Resident Creating Document: CONRADO REDDY Medical Necessity Reason Pt with a Central, PICC or Fol: No (RN) Subjective Review of Systems Patient is a German-speaking 64-year-old female with past medical history of CHF, CAD, atrial fibrillation, dyslipidemia, hypertension, diabetes mellitus, presented to [facility] ED with complaint of shortness of breath. Patient reports shortness of breath that began two days ago. She states she is unable to sleep lying flat due to worsening dyspnea and has been sleeping in a seated position to alleviate symptoms. She reports being discharged four days ago after hospitalization for pneumonia. She underwent mitral valve replacement on 04/21/2025. Since discharge, she reports worsening dyspnea and a productive cough with clear sputum. She denies fever, chills, or chest pain. 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 She states that her shortness of breath has progressively worsened since discharge. She describes having a productive cough with clear sputum. She denies fever, chills, or chest pain. 05/11: Patient was seen and examined at bedside. Overnight events were reviewed. The patient is feeling better today, with improved shortness of breath but still complains of chest pain. The patients oxygen saturation was 96% on 2 liters of nasal cannula. Objective vital signs Vital Sign Date Time Temp Pulse Resp B/P (MAP) Pulse Ox O2 Delivery O2 Flow Rate FiO2 05/11/25 11:32 85 16 100 05/11/25 11:26 Room Air* 0 21 05/11/25 10:31 110/67 05/11/25 09:00 97.8 97.8 Total Intake and Output 05/10/25 05/10/25 05/11/25 15:00 23:00 07:00 Intake Total 100 ml 520 ml 750 ml Output Total 4 ml Balance 100 ml 516 ml 750 ml medications Current Medications Medications Dose Ordered Sig/Flakito Route Start Time Stop Time Status Last Admin Dose Admin Atenolol 50 mg DAILY PO 05/10/25 10:00 05/11/25 10:31 50 MG Atorvastatin Calcium 20 mg HS PO 05/09/25 22:00 05/10/25 22:06 20 MG Diltiazem HCl 120 mg DAILY PO 05/10/25 10:00 05/11/25 10:31 120 MG Diagnostic Test (Pha) 1 strip ACHS 05/09/25 22:00 05/11/25 11:46 1 STRIP Insulin Human Regular ACHS SC 05/09/25 22:00 05/11/25 11:47 3 UNITS Dextrose 50 ml UD PRN IV 05/09/25 19:00 Ondansetron HCl 4 mg Q4HP PRN IV 05/09/25 19:00 Acetaminophen 650 mg Q6HP PRN PO 05/09/25 19:00 05/10/25 17:15 650 MG Guaifenesin/ Dextromethorphan 10 ml Q4HP PRN PO 05/10/25 00:30 05/10/25 00:37 10 ML Empaglifozin 10 mg DAILY PO 05/10/25 10:00 05/11/25 10:31 10 MG Insulin Glargine 12 units DAILY@1000 SC 05/10/25 10:00 05/11/25 10:29 12 UNITS Doxycycline Hyclate 100 ml @ 50 mls/hr Q12H IV 05/10/25 10:00 05/11/25 10:30 50 MLS/HR Enoxaparin Sodium 60 mg Q12HR SC 05/10/25 10:00 05/11/25 10:31 60 MG Ipratropium [place] 0.5 mg Q6HR NEB 05/10/25 12:00 05/11/25 11:25 0.5 MG Levalbuterol HCl 1.25 mg Q6HR NEB 05/10/25 18:00 05/11/25 11:26 1.25 MG Furosemide 40 mg BIDD IV 05/11/25 18:00 Examination General Appearance: Cooperative. Well developed. Well nourished. NAD Head Exam: Normal inspection Neck Exam: Normal inspection. Non-tender. Normal alignment Pulmonary/Respiratory: Chest Non-Tender, Decreased Breath Sounds, Lungs Clear, No Accessory Muscle Use, Respiratory Distress Cardiovascular/Chest: Regular rate and rhythm. No murmurs. No JVD. Peripheral Pulses: 2+ Radial (R). 2+ Radial (L). 2+ Pedal (R). 2+ Pedal (L) Abdominal Exam: Normal bowel sounds. Soft. normal abdomen, no visible veins, Nontender. No hepatospenomegaly. No masses Ankle Exam: Negative ankle edema Lower extremities: Negative lower extremity edema Neuro/Mental Status: A&O x4. Coherent. Thoughts/Psych: Normal thought pattern. Appropriate mood and affect. Good judgement and insight Skin Exam: Normal inspection. Normal color. Warm. Dry laboratory and microbiology Laboratory Tests 05/11/25 04:55 Test 05/11/25 04:55 Range/Units Serum Glucose 96 74-106 mg/dL Labs and/or images reviewed: Labs reviewed by me, Image(s) reviewed by me Problem List/Assessment/Plan Problem List/Assessment/Plan # Acute pneumonia secondary to gram positive and negative # Acute respiratory distress # Acute hypoxic respiratory failure # Acute on chronic decompensates congestive heart failure # history of mitral valve replacement # Ruled out pulmonary embolism # Bilateral pleural effusions - Chest X-ray: Radiographically findings most consistent with bronchitis. Cardiac size is not significantly changed from May 02, 2025 and is within normal limits making congestive failure less likely. - CT Angiography: No evidence for large pulmonary embolism. Moderate bilateral pleural effusions. Bilateral lower lobe consolidation/atelectasis. Pulmonary ground-glass attenuation bilaterally which can be secondary to edema, hypoventilatory changes. Reflux contrast hepatic veins and IVC which can be seen with right heart dysfunction. Mediastinal/ hilar lymphadenopathy which can be secondary to infectious, inflammatory, neoplastic etiologies. Thyroid isthmus nodule measuring 2.7 cm. Recommend thyroid ultrasound which can be done in the nonemergent setting. - Doxycycline - Tylenol 650 mg - Dextromethorphan 10mg - Levalbuterol 1.25 mg - Ipratropium 0.5 mg - Lasix 40mg # Paroxysmal A fib with a 2 hypercoagulable state, NSR now - EKG- Sinus rhythm. Low voltage, extremity and precordial leads. Anteroseptal infarct, old - telemetry - Atenolol 25 mg - continue Eliquis # Hypertension - Diltiazem 120 mg # Dyslipidemia - continue Lipitor # uncontrolled type 2 diabetes mellitus with hyperglycemia - A1c - Lantus - Insulin Human Regular - mild sliding scale - Dextrose DVT prophylaxis: Lovenox 40mg Goals of care: Full code, discussed for >16 minutes on 05/11/25 Plan discussed with patient Plan discussed with Dr. Galeano Plan discussed with: Patient, Other (RN) My Orders My Orders Orders - CONRADO REDDY Procedure Category Date Status Time Complete Blood Count LAB 05/12/25 Verified 04:00 Basic Metabolic Panel LAB 05/12/25 Verified 04:00 Date of Service: May 11, 2025 Billing Provider: ADRIENNE GALEANO MD Common Visit Codes: [id number] INP/OBS CARE(HIGH) CONRADO REDDY May 11, 2025 16:07 ADRIENNE GALEANO MD May 12, 2025 06:50
[2025-05-11] MEDS: FUROSEMIDE 40 MG/4 ML VIAL IV ONE (16:13)
[2025-05-11] MEDS: KETOROLAC TROMETH 30 MG/ML 1ML VIAL IV ONE (17:22)
[2025-05-11] MEDS: FUROSEMIDE 40 MG/4 ML VIAL IV SCH (18:45)
[2025-05-12] VITALS (15 sets, daily range): BP systolic 100–120; BP diastolic 68–79; PULSE 61–74; RESP 15–20; TEMP 97.3–98.3; O2SAT 90–100
[2025-05-12 06:52] LABS: Hematocrit 38.0 % (36.0-46.0); Hemoglobin 13.1 g/dL (12.2-16.2); Mean Corpuscular Hemoglobin 31.2 pg (28.0-32.0); Mean Corpuscular Volume 90.7 fL (80.0-100.0); Nucleated Red Blood Cells % 0.1 %
[2025-05-12 07:01] LABS: Chloride 103 mmol/L (98-107); Sodium 142 mmol/L (136-145)
[2025-05-12 07:02] LABS: Anion Gap 9 (5-15); Calcium 8.8 mg/dL (8.7-10.4); Carbon Dioxide 30 mmol/L (20-31)
[2025-05-12 07:07] LABS: BUN/Creatinine Ratio 30.0 (10.0-20.0); Blood Urea Nitrogen 15 mg/dL (9-23)
[2025-05-12 07:08] LABS: Glucose 114 mg/dL (74-106); Potassium 3.2 mmol/L (3.5-5.1)
[2025-05-12] MEDS: POTASSIUM EFFERVESENT TAB 25 MEQ PO ONE (10:52)
[2025-05-12 13:31] LABS: Free T4 (Free Thyroxine) 1.12 ng/dL (0.89-1.76)
--- NOTE | 2025-05-12 13:50 | DVH ---
ULTRASOUND SOFT TISSUE HEAD AND NECK CLINICAL INDICATION: thyroid nodule, suspicion for malignancy TECHNIQUE: Multiple real time sonographic images of the thyroid were obtained. COMPARISON: CTA chest 05/11/2025 FINDINGS: The right thyroid gland measures 1.1 x 1.7 x 3.5 cm. The left thyroid gland measures approximately 1.6 x 1.8 x 4.4 cm. The isthmus measures 1.2 cm. There is a solid isoechoic nodule measures up to 2.5 cm in the isthmus. There is a benign sub 5 mm colloid nodule in the left thyroid lobe. IMPRESSION: 1. TIRADS 3 nodule in the isthmus. The nodule meets the size criteria for FNA.
--- NOTE | 2025-05-12 17:24 | DVHPNRES ---
Progress Note Date Seen: May 12, 2025 Resident Creating Document: CONRADO REDDY Medical Necessity Reason Pt with a Central, PICC or Fol: No (RN) Subjective Review of Systems Patient is a [place]-speaking 64-year-old female with past medical history of CHF, CAD, atrial fibrillation, dyslipidemia, hypertension, diabetes mellitus, presented to [facility] ED with complaint of shortness of breath. Patient reports shortness of breath that began two days ago. She states she is unable to sleep lying flat due to worsening dyspnea and has been sleeping in a seated position to alleviate symptoms. She reports being discharged four days ago after hospitalization for pneumonia. She underwent mitral valve replacement on 04/21/2025. Since discharge, she reports worsening dyspnea and a productive cough with clear sputum. She denies fever, chills, or chest pain. Patient reported recently underwent cardiac surgery at [facility] for leaky valve and then after the procedure she was seen by Dr. 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 She states that her shortness of breath has progressively worsened since discharge. She describes having a productive cough with clear sputum. She denies fever, chills, or chest pain. 05/11: Patient was seen and examined at bedside. Overnight events were reviewed. The patient is feeling better today, with improved shortness of breath but still complains of chest pain. The patients oxygen saturation was 96% on 2 liters of nasal cannula. 05/12: Patient was seen and examined at bedside. Overnight events were reviewed. The patient reported a headache with pain rated 3/10. Patient improved shortness of breath and chest pain. Objective vital signs Vital Sign Date Time Temp Pulse Resp B/P (MAP) Pulse Ox O2 Delivery O2 Flow Rate FiO2 05/12/25 17:08 98.1 63 15 100/70 (80) 94 98.1 05/12/25 11:31 Room Air* 0 21 Total Intake and Output 05/11/25 05/11/25 05/12/25 15:00 23:00 07:00 Intake Total 100 ml 675 ml 460 ml Balance 100 ml 675 ml 460 ml medications Current Medications Medications Dose Ordered Sig/Flakito Route Start Time Stop Time Status Last Admin Dose Admin Atenolol 50 mg DAILY PO 05/10/25 10:00 05/12/25 10:56 50 MG Atorvastatin Calcium 20 mg HS PO 05/09/25 22:00 05/11/25 21:37 20 MG Diltiazem HCl 120 mg DAILY PO 05/10/25 10:00 05/12/25 10:55 120 MG Diagnostic Test (Pha) 1 strip ACHS 05/09/25 22:00 05/12/25 17:17 1 STRIP Insulin Human Regular ACHS SC 05/09/25 22:00 05/12/25 11:30 3 UNITS Dextrose 50 ml UD PRN IV 05/09/25 19:00 Ondansetron HCl 4 mg Q4HP PRN IV 05/09/25 19:00 Acetaminophen 650 mg Q6HP PRN PO 05/09/25 19:00 05/12/25 14:53 650 MG Guaifenesin/ Dextromethorphan 10 ml Q4HP PRN PO 05/10/25 00:30 05/10/25 00:37 10 ML Empaglifozin 10 mg DAILY PO 05/10/25 10:00 05/12/25 10:56 10 MG Insulin Glargine 12 units DAILY@1000 SC 05/10/25 10:00 05/12/25 11:05 12 UNITS Doxycycline Hyclate 100 ml @ 50 mls/hr Q12H IV 05/10/25 10:00 05/12/25 13:00 50 MLS/HR Enoxaparin Sodium 60 mg Q12HR SC 05/10/25 10:00 05/12/25 10:56 60 MG Furosemide 40 mg BIDD IV 05/11/25 18:00 05/12/25 05:41 40 MG Ipratropium [place] 0.5 mg Q8HR NEB 05/12/25 22:00 Levalbuterol HCl 1.25 mg Q8HR NEB 05/12/25 22:00 Examination General Appearance: Cooperative. Well developed. Well nourished. NAD Head Exam: Normal inspection Neck Exam: Normal inspection. Non-tender. Normal alignment Pulmonary/Respiratory: Chest Non-Tender, Decreased Breath Sounds, Lungs Clear, No Accessory Muscle Use, Respiratory Distress Cardiovascular/Chest: Regular rate and rhythm. No murmurs. No JVD. Peripheral Pulses: 2+ Radial (R). 2+ Radial (L). 2+ Pedal (R). 2+ Pedal (L) Abdominal Exam: Normal bowel sounds. Soft. normal abdomen, no visible veins, Nontender. No hepatospenomegaly. No masses Ankle Exam: Negative ankle edema Lower extremities: Negative lower extremity edema Neuro/Mental Status: A&O x4. Coherent. Thoughts/Psych: Normal thought pattern. Appropriate mood and affect. Good judgement and insight Skin Exam: Normal inspection. Normal color. Warm. Dry laboratory and microbiology Laboratory Tests 05/12/25 05:40 Test 05/12/25 05:40 Range/Units Serum Glucose 114 H 74-106 mg/dL Labs and/or images reviewed: Labs reviewed by me, Image(s) reviewed by me Problem List/Assessment/Plan Problem List/Assessment/Plan # Acute pneumonia secondary to gram positive and negative # Acute respiratory distress # Acute hypoxic respiratory failure # Acute on chronic decompensates congestive heart failure # history of mitral valve replacement # Ruled out pulmonary embolism # Bilateral pleural effusions - Chest X-ray: Radiographically findings most consistent with bronchitis. Cardiac size is not significantly changed from May 02, 2025 and is within normal limits making congestive failure less likely. - CT Angiography: No evidence for large pulmonary embolism. Moderate bilateral pleural effusions. Bilateral lower lobe consolidation/atelectasis. Pulmonary ground-glass attenuation bilaterally which can be secondary to edema, hypoventilatory changes. Reflux contrast hepatic veins and IVC which can be seen with right heart dysfunction. Mediastinal/ hilar lymphadenopathy which can be secondary to infectious, inflammatory, neoplastic etiologies. - Doxycycline - Tylenol 650 mg - Dextromethorphan 10mg - Levalbuterol 1.25 mg - Ipratropium 0.5 mg - Lasix 40mg # Thyroid nodule, suspicion for malignancy - CT Angiography: Thyroid isthmus nodule measuring 2.7 cm. Recommend thyroid ultrasound which can be done in the nonemergent setting. - Thyroid US: The isthmus measures 1.2 cm. There is a solid isoechoic nodule measures up to 2.5 cm in the isthmus. There is a benign sub 5 mm colloid nodule in the left thyroid lobe. The nodule meets the size criteria for FNA. - FNA pending - TSH, Free T4 Total T3 WNL # Paroxysmal A fib with a 2 hypercoagulable state, NSR now - EKG- Sinus rhythm. Low voltage, extremity and precordial leads. Anteroseptal infarct, old - telemetry - Atenolol 25 mg - continue Eliquis # Hypertension - Diltiazem 120 mg # Dyslipidemia - continue Lipitor # uncontrolled type 2 diabetes mellitus with hyperglycemia - A1c - Lantus - Insulin Human Regular - mild sliding scale - Dextrose DVT prophylaxis: Lovenox 40mg Goals of care: Full code, discussed for >16 minutes on 05/12/25 Plan discussed with patient Plan discussed with Dr. Galeano Plan discussed with: Patient, Other (RN) Date of Service: May 12, 2025 Billing Provider: ADRIENNE GALEANO MD Common Visit Codes: [id number] INP/OBS CARE(HIGH) CONRADO REDDY RESIDENT May 12, 2025 17:24 ADRIENNE GALEANO MD May 12, 2025 23:13
[2025-05-12] MEDS: LEVALBUTEROL HCL 1.25 MG/3 ML NEB NEB SCH (22:29)
[2025-05-12] MEDS: IPRATROPIUM BROM 0.5 MG/2.5ML INH SOL NEB SCH (22:29)
[2025-05-13] VITALS (9 sets, daily range): BP systolic 103–131; BP diastolic 55–82; PULSE 62–82; RESP 14–20; TEMP 36.6; O2SAT 93–99
[2025-05-13] MEDS: DOXYCYCLINE 100MG/100ML 100 ML IV SCH (05:23)
[2025-05-13 06:33] LABS: Hematocrit 40.3 % (36.0-46.0); Hemoglobin 13.7 g/dL (12.2-16.2); Mean Corpuscular Hemoglobin 31.0 pg (28.0-32.0); Mean Corpuscular Volume 91.1 fL (80.0-100.0); Nucleated Red Blood Cells % 0.0 %
[2025-05-13 06:45] LABS: Alanine Aminotransferase 23 U/L (7-40); Alkaline Phosphatase 106 U/L (46-116); Anion Gap 9 (5-15); BUN/Creatinine Ratio 25.0 (10.0-20.0); Blood Urea Nitrogen 16 mg/dL (9-23); Calcium 8.8 mg/dL (8.7-10.4); Chloride 102 mmol/L (98-107); Glucose 105 mg/dL (74-106); Potassium 3.6 mmol/L (3.5-5.1); Sodium 143 mmol/L (136-145); Total Protein 6.8 g/dL (5.7-8.2)
[2025-05-13 06:46] LABS: Albumin 4.0 g/dL (3.2-4.8); Bilirubin, Total 0.4 mg/dL (0.2-1.0); Carbon Dioxide 32 mmol/L (20-31)
--- NOTE | 2025-05-13 10:42 | DVH ---
CHEST XRAY: 1 view(s) was obtained HISTORY: SOB COMPARISON: XY CHEST XRAY 1 VIEW on DOS: 05/02/25, XY CHEST PORTABLE on DOS: 01/12/25, CHEST PORTABLE o n DOS: 03/26/22, CXRP on DOS: 03/26/22, CHEST PORTABLE on DOS: 03/22/22 FINDINGS: Improved mild pulmonary vascular congestion . The heart is normal in size. There is aortic atheroscle rosis. There are bilateral small pleural effusions. There is no pneumothorax. Osseus structures are i ntact . IMPRESSION: 1. Slightly improved mild pulmonary vascular congestion. 2. Small pleural effusions without significant interval change.
[2025-05-13] MEDS ORDERED: POTA-36 PO (13:11)
[2025-05-13] MEDS ORDERED: FURO40TA4 PO (13:11)
[2025-05-13] MEDS ORDERED: APIX5TAB PO (13:17)
[2025-05-13] MEDS ORDERED: ATEN50TA PO (13:17)
[2025-05-13] MEDS ORDERED: EMPA1TAB PO (13:17)
[2025-05-13] MEDS ORDERED: ATOR20TA50 PO (13:17)
[2025-05-13] MEDS ORDERED: DILT120C41 PO (13:17)
--- NOTE | 2025-05-13 17:52 | DVHDSRES ---
Discharge Summary Date of Admission Resident Creating Document: CONRADO REDDY RESIDENT May 09, 2025 at 18:56 Date of Discharge: May 13, 2025 Admitting Diagnosis shortness of breath Labs/Diagnostic Data: Laboratory Results Test 05/13/25 10:36 05/13/25 05:41 05/12/25 13:01 05/12/25 05:40 POC Glucose 316 mg/dl (70-106) White Blood Count 6.0 10^3/uL (4.4-10.8) Red Blood Count 4.42 10^6/uL (4.0-5.20) Hemoglobin 13.7 g/dL (12.2-16.2) Hematocrit 40.3 % (36.0-46.0) Mean Corpuscular Volume 91.1 fL (80.0-100.0) Mean Corpuscular Hemoglobin 31.0 pg (28.0-32.0) Mean Corpuscular Hemoglobin Concent 34.0 g/dL (32.0-36.0) Red Cell Distribution Width 14.0 % (11.8-14.3) Platelet Count 249 10^3/uL (140-450) Mean Platelet Volume 9.6 fL (6.9-10.8) Neutrophils (%) (Auto) 66.1 % (37.0-80.0) Lymphocytes (%) (Auto) 23.6 % (10.0-50.0) Monocytes (%) (Auto) 7.9 % (0.0-12.0) Eosinophils (%) (Auto) 1.9 % (0.0-7.0) Basophils (%) (Auto) 0.5 % (0.0-2.0) Neutrophils # (Auto) 4.0 10 ^3/uL (1.6-8.6) Lymphocytes # (Auto) 1.4 10 ^3/uL (0.4-5.4) Monocytes # (Auto) 0.5 10 ^3/uL (0-1.3) Eosinophils # (Auto) 0.1 10 ^3/uL (0-0.8) Basophils # (Auto) 0 10 ^3/uL (0-0.2) Nucleated Red Blood Cells 0.0 % Sodium Level 143 mmol/L (136-145) Potassium Level 3.6 mmol/L (3.5-5.1) Chloride Level 102 mmol/L (98-107) Carbon Dioxide Level 32 mmol/L (20-31) Anion Gap 9 (5-15) Blood Urea Nitrogen 16 mg/dL (9-23) Creatinine 0.64 mg/dL (0.550-1.02) Glomerular Filtration Rate Calc 99 mL/min (>90) BUN/Creatinine Ratio 25.0 (10.0-20.0) Serum Glucose 105 mg/dL (74-106) Calcium Level 8.8 mg/dL (8.7-10.4) Total Bilirubin 0.4 mg/dL (0.2-1.0) Aspartate Amino Transferase (AST) 24 U/L (13-40) Alanine Aminotransferase (ALT) 23 U/L (7-40) Alkaline Phosphatase 106 U/L (46-116) Total Protein 6.8 g/dL (5.7-8.2) Albumin 4.0 g/dL (3.2-4.8) Free Thyroxine (T4) Calculated 1.12 ng/dL (0.89-1.76) Total Triiodothyronine (TT3) 0.97 ng/mL (0.60-1.81) Magnesium Level 2.0 mg/dL (1.6-2.6) Thyroid Stimulating Hormone (TSH) 0.65 uIU/mL (0.55-4.78) Test 05/11/25 04:55 05/10/25 13:51 05/10/25 06:00 05/09/25 19:05 C-Reactive Protein High Sensitivity 0.36 mg/dL (<1.0) Influenza Type A Antigen Negative (Negative) Influenza Type B Antigen Negative (Negative) SARS-CoV-2 Antigen (Rapid) Negative (NEGATIVE) Direct Bilirubin 0.2 mg/dL (<0.3) D-Dimer, Quantitative 0.19 mg/L FEU (0.0-0.49) Test 05/09/25 13:24 05/09/25 12:35 Troponin I High Sensitivity 5 ng/L (</=34) B-Type Natriuretic Peptide 182.96 pg/mL (0-100) Other Laboratory Tests 05/13/25 05:41 Brief Hx & Hospital Course: The patient is a Armenian-speaking 64-year-old female with a history of congestive heart failure, coronary artery disease, atrial fibrillation, dyslipidemia, hypertension, and diabetes mellitus, who presented to [facility] Emergency Department with shortness of breath. She reported dyspnea that began two days prior, worsening to the point where she could no longer lie flat and had to sleep seated. She was recently discharged four days ago following hospitalization for pneumonia and had undergone mitral valve replacement on 04/21/2025. Since discharge, she experienced progressive dyspnea and a productive cough with clear sputum, but denied fever, chills, or chest pain. On admission, her oxygen saturation was 96% on 2L nasal cannula. Physical examination revealed decreased breath sounds without respiratory distress, regular heart rhythm without murmurs, and no peripheral edema. Imaging studies showed bilateral pleural effusions, lower lobe consolidation, and ground-glass opacities consistent with pneumonia and possible heart dysfunction. Pulmonary embolism was ruled out via CT angiography. She was diagnosed with acute pneumonia, acute respiratory distress, acute hypoxic respiratory failure, and acute on chronic decompensated heart failure. Treatment included Doxycycline, Tylenol, Dextromethorphan, Levalbuterol, Ipratropium, and Lasix. Her atrial fibrillation was managed with Atenolol and Eliquis, and she remained in sinus rhythm on telemetry. Her hypertension and dyslipidemia were managed with Diltiazem and Lipitor, respectively. Her diabetes was uncontrolled, requiring insulin therapy and sliding scale coverage. Additionally, a thyroid nodule was identified on imaging, raising suspicion for malignancy. Ultrasound confirmed a solid isoechoic nodule measuring 2.5 cm in the isthmus, meeting criteria for fine needle aspiration, which is pending. Thyroid function tests were within normal limits. The patient showed gradual improvement in respiratory symptoms and chest pain during hospitalization. She remains stable and is receiving DVT prophylaxis with Lovenox. Examination General Appearance: Cooperative. Well developed. Well nourished. NAD Head Exam: Normal inspection Neck Exam: Normal inspection. Non-tender. Normal alignment Pulmonary/Respiratory: Chest Non-Tender, Decreased Breath Sounds, Lungs Clear, No Accessory Muscle Use, Respiratory Distress Cardiovascular/Chest: Regular rate and rhythm. No murmurs. No JVD. Peripheral Pulses: 2+ Radial (R). 2+ Radial (L). 2+ Pedal (R). 2+ Pedal (L) Abdominal Exam: Normal bowel sounds. Soft. normal abdomen, no visible veins, Nontender. No hepatospenomegaly. No masses Ankle Exam: Negative ankle edema Lower extremities: Negative lower extremity edema Neuro/Mental Status: A&O x4. Coherent. Thoughts/Psych: Normal thought pattern. Appropriate mood and affect. Good judgement and insight Skin Exam: Normal inspection. Normal color. Warm. Dry Operations or Procedures PATIENT: JAMIE BAIN ACCT: [id number] UNIT: [id number] : 1960 LOC: [facility] ROOM / BED: [address] [place] [address] AGE / SEX: 64 / F ADM STATUS: ADM IN SERVICE 0938 ORDERING PHYSICIAN: AGUILA DALEY PROCEDURE(s): CXR1 - CHEST XRAY 1 VIEW REASON: SOB ORDER NUMBER(s): [id number], ACCESSION NUMBER(s): [id number] CHEST XRAY: 1 view(s) was obtained HISTORY: SOB COMPARISON: XY CHEST XRAY 1 VIEW on DOS: 05/02/25, XY CHEST PORTABLE on DOS: 01/12/25, CHEST PORTABLE on DOS: 03/26/22, CXRP on DOS: 03/26/22, CHEST PORTABLE on DOS: 03/22/22 FINDINGS: Improved mild pulmonary vascular congestion . The heart is normal in size. There is aortic atherosclerosis. There are bilateral small pleural effusions. There is no pneumothorax. Osseus structures are intact . IMPRESSION: 1. Slightly improved mild pulmonary vascular congestion. 2. Small pleural effusions without significant interval change. ---- PATIENT: JAMIE BAIN ACCT: [id number] UNIT: [id number] : 1960 LOC: [facility] ROOM / BED: [address] [place] [address] AGE / SEX: 64 / F ADM STATUS: ADM IN SERVICE 1128 ORDERING PHYSICIAN: JHAJJ,SARPUNEET RESIDENT PROCEDURE(s): THYDU - THYROID REASON: thyroid nodule, suspicion for malignancy ORDER NUMBER(s): [id number], ACCESSION NUMBER(s): [id number] ULTRASOUND SOFT TISSUE HEAD AND NECK CLINICAL INDICATION: thyroid nodule, suspicion for malignancy TECHNIQUE: Multiple real time sonographic images of the thyroid were obtained. COMPARISON: CTA chest 05/11/2025 FINDINGS: The right thyroid gland measures 1.1 x 1.7 x 3.5 cm. The left thyroid gland measures approximately 1.6 x 1.8 x 4.4 cm. The isthmus measures 1.2 cm. There is a solid isoechoic nodule measures up to 2.5 cm in the isthmus. There is a benign sub 5 mm colloid nodule in the left thyroid lobe. IMPRESSION: 1. TIRADS 3 nodule in the isthmus. The nodule meets the size criteria for FNA. - --- PATIENT: JAMIE BAIN ACCT: [id number] UNIT: [id number] : 1960 LOC: [facility] ROOM / BED: [address] [place] [address] AGE / SEX: 64 / F ADM STATUS: ADM IN SERVICE 1040 ORDERING PHYSICIAN: DORENE ENGLE RESIDENT PROCEDURE(s): CTACH - CT ANGIO CHEST CONTRAST REASON: chest pain, sob, r/o PE ORDER NUMBER(s): [id number], ACCESSION NUMBER(s): [id number] Indication: chest pain, sob, r/o PE Technique: CT axial images of the chest are obtained with intravenous contrast per CT angiogram protocol. Coronal and sagittal reformats were obtained. Radiation Dose Information: CTDI volume is 23.68 mGy. Dose-length product is 439.18 mGy*cm Comparison: None FINDINGS: There is no filling defect within the main left right pulmonary arteries. The segmental and subsegmental branches are suboptimally opacified/ characterized. The trachea is patent. No pneumothorax. Pulmonary ground-glass attenuation bilaterally. Moderate bilateral pleural effusions, jajtl-xowilmz-gkrb-left. Bilateral lower lobe atelectasis/consolidation. Heart size at the upper limits of normal. Mitral valvular clip. 2.2 cm subcarinal lymph node. Right hilar lymph node measuring 11 mm. Left hilar lymph node measuring 12 mm. Pretracheal lymph node measuring 11 mm. No supraclavicular axillary lymphadenopathy. Thyroid isthmus 2.7 cm. Reflux of contrast in the hepatic veins and IVC. No aggressive osseous process. IMPRESSION: No evidence for large pulmonary embolism. Moderate bilateral pleural effusions. Bilateral lower lobe consolidation/atelectasis. Pulmonary ground-glass attenuation bilaterally which can be secondary to edema, hypoventilatory changes. Reflux contrast hepatic veins and IVC which can be seen with right heart dysfunction. Mediastinal/ hilar lymphadenopathy which can be secondary to infectious, inflammatory, neoplastic etiologies. Thyroid isthmus nodule measuring 2.7 cm. Recommend thyroid ultrasound which can be done in the nonemergent setting. Other findings as described - --- PATIENT: JAMIE BAIN ACCT: [id number] UNIT: [id number] : 1960 LOC: ER ROOM / BED: / AGE / SEX: 64 / F ADM STATUS: REG ER SERVICE 1219 ORDERING PHYSICIAN: ARACELIS SMITH MD PROCEDURE(s): CXR2 - CHEST TWO VIEWS ROUTINE REASON: sob ORDER NUMBER(s): [id number], ACCESSION NUMBER(s): [id number] CHEST TWO VIEWS ROUTINE CLINICAL HISTORY: sob COMPARISON: None TECHNIQUE: Frontal and lateral view of the chest was obtained FINDINGS: Lines and Tubes: None Lungs: Mild bilateral perihilar peribronchial thickening may represent bronchitis. Cardiac size is unchanged from 05/02/2025. Mitral leaflet clip is visualized Pleura: No effusion. No pneumothorax. Cardiomediastinal contours: Unremarkable Bones: No acute osseous abnormality. Bony spondylosis throughout the thoracic spine IMPRESSION: 1. Radiographically findings most consistent with bronchitis. Cardiac size is not significantly changed from May 02, 2025 and is within normal limits making congestive failure less likely. 2. Correlate clinically. 3. Mitral leaflet clip in place. 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 - --- Condition at Discharge: Stable Final Diagnosis/Problems List # Acute pneumonia secondary to gram positive and negative # Acute respiratory distress # Acute hypoxic respiratory failure # Acute on chronic decompensates congestive heart failure # history of mitral valve replacement # Ruled out pulmonary embolism # Bilateral pleural effusions # Thyroid nodule, suspicion for malignancy # Paroxysmal A fib with a 2 hypercoagulable state, NSR now # Hypertension # Dyslipidemia # uncontrolled type 2 diabetes mellitus with hyperglycemia Discharge Disposition: Home Discharge Instruct/Medications Diet: Cardiac 2g Na,low cholest Activity: No Restrictions, As Tolerated Follow Up/Referral: Follow up with PCP within 1 week Medications: Continue home medications Scheduled Acetaminophen (Tylenol), 325 MG PO TID Apixaban Base (Eliquis), 5 MG PO BID Atenolol (Atenolol), 1 TAB PO DAILY Atorvastatin Calcium (Atorvastatin Calcium), 1 TAB PO HS Diltiazem Hcl (Dilt-Xr), 1 CAP PO DAILY Empagliflozin (Jardiance), 10 MG PO DAILY Furosemide (Furosemide), 40 MG PO DAILY Nitroglycerin (Ntrostat Sublingual), 0.4 MG SL PRN, (Reported) Omeprazole (Omeprazole Dr), 1 CAP PO DAILY, (Reported) Potassium Chloride (Potassium Chloride Cr), 10 MEQ PO DAILY Tirzepatide (Mounjaro), 5 MG SC QWEEKLY, (Reported) Discontinued Medications Empagliflozin (Jardiance), 25 MG PO DAILY, (Reported) Discharge Statement: "Patient was advised to return to the ER or call 911 if any headaches, dizziness, shortness of breath, chest pain, abdominal pain, bleeding, fevers, or worsening of medical condition. Patient was counseled about treatment plan, medications, possible side effects, patientverbalized understanding. All questions were answered to the best of my ability. This discharge took greater then 30 minutes in planning, reviewing documentation, counseling the patient, and discussing with other team members." ASSESSMENT ASSESSMENT Assessment # Acute pneumonia secondary to gram positive and negative # Acute respiratory distress # Acute hypoxic respiratory failure # Acute on chronic decompensates congestive heart failure # history of mitral valve replacement # Ruled out pulmonary embolism # Bilateral pleural effusions # Thyroid nodule, suspicion for malignancy # Paroxysmal A fib with a 2 hypercoagulable state, NSR now # Hypertension # Dyslipidemia # uncontrolled type 2 diabetes mellitus with hyperglycemia Date of Service: May 13, 2025 Billing Provider: ADRIENNE OCONNELL MD Common Visit Codes: 93786-VVW/OBS DISCH DAY >30min CONRADO REDDY RESIDENT May 13, 2025 17:52 ADRIENNE OCONNELL MD May 13, 2025 23:08
== END 2025-05-13 15:35 | disposition home or self-care (01) | DRG 133 ==
LOC: ER 12:00 → OVERFLOW 18:56 → WEST WING 18:57 → ER 18:57 → WEST WING 21:28
PROVIDERS: ADMIT Internal Medicine; ATTEND Internal Medicine
DX: J96.01 Acute respiratory failure with hypoxia (principal); J15.69 Pneumonia due to other Gram-negative bacteria; J15.9 Unspecified bacterial pneumonia; J90 Pleural effusion, not elsewhere classified; I50.9 Heart failure, unspecified; I11.0 Hypertensive heart disease with heart failure; E11.65 Type 2 diabetes mellitus with hyperglycemia; D68.69 Other thrombophilia; E04.1 Nontoxic single thyroid nodule; E78.5 Hyperlipidemia, unspecified; J98.4 Other disorders of lung; I25.10 Atherosclerotic heart disease of native coronary artery without angina pectoris; I48.0 Paroxysmal atrial fibrillation; Z82.49 Family history of ischemic heart disease and other diseases of the circulatory system; Z90.710 Acquired absence of both cervix and uterus; Z98.891 History of uterine scar from previous surgery; Z95.2 Presence of prosthetic heart valve
CPT/HCPCS: 36415; 71045; 71046; 71275; 76536; 80048; 80053; 80076; 82962; 83735; 83880; 84439; 84443; 84480; 84484; 85025; 85379; 86141; 87426; 87804; 93005; 94640; G0378; J1815; J1885

== ENCOUNTER 2025-06-14 20:41 | Inpatient (IN) | payer MEDICAID ==
[~2025-06-14] VITALS: Ht 152.4 cm; Wt 58.9 kg
[~2025-06-14 20:41] MED LIST changes: +EMPA1TAB PO; -EMPA1TAB3 PO; +FURO40TA4 PO; +POTA-36 PO
--- NOTE | 2025-06-14 21:38 | ECG ---
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
--- NOTE | 2025-06-14 22:02 | ED.PDOC ---
SOB-HPI HPI Comments 64-year-old female with a past medical history of CHF, atrial fibrillation(on Eliquis), hypertension, hyperlipidemia, csm-dkielij-yhsdlcvvg type 2 diabetes mellitus and pneumonia (admitted to this facility around 3 weeks ago for bronchopneumonia) has come with chief complaints shortness of breath and chest pain. Patient reports that after being discharged from the hospital, her chest pain has not abated and has been constantly there, along with shortness of breath and wheezing. She describes the chest pain as pressure-like, substernal, constant, 10/10 in intensity, nonradiating, with no aggravating or relieving factors. She reports visiting her PCP last week and got an x-ray, but has not received any results yet and was not given any medication. She also complains of shortness of breath and cough (productive, clear) that has increased more in the past few days prompting her to visit the ER today. She denies any fever, chills, nausea, vomiting, palpitations, dizziness, GERD symptoms, sick contacts, recent travel history. Patient also states that in her last hospitalization at this facility, she was unable to tolerate one of the antibiotics, but she can not remember which one. On initial assessment her SpO2 was 93% in room air, HR 118, RR 20. Patient started on 4 L oxygen via nasal cannula. Chest x-ray shows Development of ogkyh-orzhqgz-tsrg-left pleural effusions with adjacent airspace disease, may be related to heart failure or multifocal infection. BNP is 175.01. Patient requires further workup and management. Chief Complaint: Shortness of Breath Time Seen by MD: 21:10 Primary Care Provider: ARIE Saleh notes: Nurses Notes, Allergies Information Source: Patient Mode of Arrival: Ambulatory Severity: Moderate Timing: Weeks Duration: Days Context: At Rest PE Risk Factors: None History of: CHF Prehospital treatment: None Modifying Factors: Nothing Quality: Squeezing, Pressure Radiation: No Radiation Location: Substernal If cough with SOB: Productive, White Past Medical History PAST MEDICAL HISTORY: AFIB, CAD, CHF, DM, High Lipids, HTN Past Medical History (Other): Pneumonia 3 weeks ago Surgical History: , Hysterectomy, Tonsillectomy [employer] 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 History Family History Family History: Family hx of heart markel, Family hx of HTN Social History Smoker: Non-Smoker Alcohol: Denies ETOH Use Drugs: Denies Drug Use Lives In: Home Constitutional: denies: chills, diaphoresis, fatigue, fever, malaise, sweats, weakness, others EENTM: denies: blurred vision, double vision, ear bleeding, ear discharge, ear drainage, ear pain, ear ringing, eye pain, eye redness, hearing loss, mouth pain, mouth swelling, nasal discharge, nose bleeding, nose congestion, nose pain, photophobia, tearing, throat pain, throat swelling, voice changes, others Respiratory: reports: cough, shortness of breath, wheezing; denies: hemoptysis, orthopnea, SOB at rest, SOB with excertion, stridor, others Cardiovascular: reports: chest pain; denies: dizzy spells, diaphoresis, Dyspnea on exertion, edema, irregular heart beat, left arm pain, lightheadedness, palpitations, PND, syncope, others Gastrointestinal: denies: abdomen distended, abdominal pain, blood streaked bowels, constipated, diarrhea, dysphagia, difficulty swallowing, hematemesis, melena, nausea, poor appetite, poor fluid intake, rectal bleeding, rectal pain, vomiting, others Genitourinary: denies: abnormal vagina bleeding, burning, dyspareunia, dysuria, flank pain, frequency, hematuria, incontinence, pain, , vagina discharge, urgency, others Neurological: denies: dizziness, fainting, headache, left sided numbness, left sided weakness, numbness, paresthesia, pre-existing deficit, right sided numbness, right sided weakness, seizure, speech problems, tingling, tremors, weakness, others Musculoskeletal: denies: back pain, gout, joint pain, joint swelling, muscle pain, muscle stiffness, neck pain, others Integumetry: denies: bruises, change in color, change in hair/nails, dryness, laceration, lesions, lumps, rash, wounds, others Allergic/Immunocompromised: denies: Difficulty Healing, Frequent Infections, Hives, Itching, others Hematologic/Lymphatic: denies: anemia, blood clots, easy bleeding, easy bruising, swollen glands, others Endocrine: denies: excessive hunger, excessive sweating, excessive thirst, excessive urination, flushing, intolerance to cold, intolerance to heat, unexplained weight gain, unexplained weight loss, others Psychiatric: denies: anxiety, bipolar disorder, depression, hopeless, panic disorder, schizophrenia, sleepless, suicidal, others Physical Exam General Appearance: Mild Distress HEENT: PERRL/EOMI Neck: Normal Respiratory: Respiratory Distress Cardiovascular: Tachycardia Breast Exam: Deferred Gastrointestinal: Non Tender, Normal Bowel Sounds, Soft Genitalia: Deferred Pelvic: Deferred Rectal: Deferred Extremities: Normal inspection, No pedal edema Neurologic: None Cerebellar Function: Normal Reflexes: Normal Skin: None Lymphatic: No Adenopathy Was a procedure done? Was a procedure done?: No Differential Dx Differential Diagnosis: Bronchitis, Pneumonia, Respiratory Distress, Other (Pleural effusion) X-Ray, Labs, Meds, VS Vital Signs Date Time Temp Pulse Resp B/P (MAP) Pulse Ox O2 Delivery O2 Flow Rate FiO2 06/14/25 22:05 98 06/14/25 20:54 114 06/14/25 20:43 97.9 118 20 146/88 93 97.9 Lab Test 06/14/25 21:39 Range/Units White Blood Count 6.3 4.4-10.8 10^3/uL Red Blood Count 4.88 4.0-5.20 10^6/uL Hemoglobin 14.8 12.2-16.2 g/dL Hematocrit 44.0 36.0-46.0 % Mean Corpuscular Volume 90.3 80.0-100.0 fL Mean Corpuscular Hemoglobin 30.4 28.0-32.0 pg Mean Corpuscular Hemoglobin Concent 33.6 32.0-36.0 g/dL Red Cell Distribution Width 14.1 11.8-14.3 % Platelet Count 293 140-450 10^3/uL Mean Platelet Volume 9.3 6.9-10.8 fL Neutrophils (%) (Auto) 69.9 37.0-80.0 % Lymphocytes (%) (Auto) 23.0 10.0-50.0 % Monocytes (%) (Auto) 5.7 0.0-12.0 % Eosinophils (%) (Auto) 0.6 0.0-7.0 % Basophils (%) (Auto) 0.8 0.0-2.0 % Neutrophils # (Auto) 4.4 1.6-8.6 10 ^3/uL Lymphocytes # (Auto) 1.4 0.4-5.4 10 ^3/uL Monocytes # (Auto) 0.4 0-1.3 10 ^3/uL Eosinophils # (Auto) 0 0-0.8 10 ^3/uL Basophils # (Auto) 0.1 0-0.2 10 ^3/uL Nucleated Red Blood Cells 0.1 % D-Dimer, Quantitative 0.59 H 0.0-0.49 mg/L FEU Sodium Level 141 136-145 mmol/L Potassium Level 4.1 3.5-5.1 mmol/L Chloride Level 102 98-107 mmol/L Carbon Dioxide Level 30 20-31 mmol/L Anion Gap 9 5-15 Blood Urea Nitrogen 16 9-23 mg/dL Creatinine 0.73 0.550-1.02 mg/dL Glomerular Filtration Rate Calc 92 >90 mL/min BUN/Creatinine Ratio 21.9 H 10.0-20.0 Serum Glucose 130 H 74-106 mg/dL Calcium Level 9.2 8.7-10.4 mg/dL Troponin I High Sensitivity 5 </=34 ng/L B-Type Natriuretic Peptide 175.01 0-100 pg/mL Vitamin B12 Level 398 211-911 pg/mL Vitamin D 25-Hydroxy 43.9 30.0-100 ng/mL Thyroid Stimulating Hormone (TSH) 0.34 L 0.55-4.78 uIU/mL [place] [id number] Ph: [phone] DIAGNOSTIC IMAGING Diagnostic Imaging Report : [id number] Signed PATIENT: JAMIE BAIN ACCT: [id number] UNIT: [id number] : 1960 LOC: OVERFLOW ROOM / BED: [address] [place] [address] AGE / SEX: 64 / F ADM STATUS: ADM IN SERVICE ORDERING PHYSICIAN: RED FERRERA RESIDENT PROCEDURE(s): BLDVT - BiLat Lower DVT REASON: Rule out DVT ORDER NUMBER(s): [id number], ACCESSION NUMBER(s): [id number] Bilateral lower extremity venous duplex Clinical History: Rule out DVT Comparison: None Technique: Duplex Doppler evaluation of the deep venous systems of both lower extremities from the common femoral veins to the popliteal veins including color Doppler and spectral/pulsed waveform analysis was performed. Findings: RIGHT SIDE: The common femoral vein demonstrates appropriate compressibility and waveform variability. There is compressibility/patency of the great saphenous vein at the proximal thigh. The femoral vein demonstrates appropriate compressibility and waveform variability. The deep femoral vein demonstrates appropriate compressibility and waveform variability. The popliteal vein demonstrates appropriate compressibility and waveform variability. There is normal compressibility at the tibioperoneal trunk. LEFT SIDE: The common femoral vein demonstrates appropriate compressibility and waveform variability. There is compressibility/patency of the great saphenous vein at the proximal thigh. The femoral vein demonstrates appropriate compressibility and waveform variability. The deep femoral vein demonstrates appropriate compressibility and waveform variability. The popliteal vein demonstrates appropriate compressibility and waveform variability. There is normal compressibility at the tibioperoneal trunk. Impression: 1. No right or left femoropopliteal venous thrombosis. ATED BY: LUCRETIA CHRISTENSEN MD DICTATED DATE/TIME: 06/15/2520 SIGNED BY: LUCRETIA CHRISTENSEN MD SIGNED DATE/TIME: 06/15/2520 CC: [place] [id number] Ph: [phone] DIAGNOSTIC IMAGING Diagnostic Imaging Report : [id number] Signed PATIENT: JAMIE BAIN ACCT: [id number] UNIT: [id number] : 1960 LOC: ER ROOM / BED: / AGE / SEX: 64 / F ADM STATUS: REG ER SERVICE 26 ORDERING PHYSICIAN: CHRIS MESSINA RESIDENT PROCEDURE(s): CXR1 - CHEST XRAY 1 VIEW REASON: sob ORDER NUMBER(s): [id number], ACCESSION NUMBER(s): [id number] CHEST RADIOGRAPH Indication: sob Technique: 1 view Comparison: XY CHEST XRAY 1 VIEW on DOS: 05/13/25, XY CHEST XRAY 1 VIEW on DOS: 05/02/25, XY CHEST PORTABLE on DOS: 01/12/25, CHEST PORTABLE on DOS: 03/26/22, CXRP on DOS: 03/26/22 FINDINGS: Lines and Tubes: None. Lungs/Pleura: Dsjzi-eb-uyvflmdf, znten-bhqtzqh-ymnq-left pleural effusions with adjacent airspace disease. Diffuse interstitial prominence. Cardiomediastinum: Unchanged, normal heart size. Mitral clip. Other: No acute osseous abnormality. IMPRESSION: 1. Development of uians-gfdgswn-aeac-left pleural effusions with adjacent airspace disease, may be related to heart failure or multifocal infection. ATED BY: LUCRETIA CHRISTENSEN MD DICTATED DATE/TIME: 06/14/252212 SIGNED BY: LUCRETIA CHRISTENSEN MD SIGNED DATE/TIME: 06/14/252212 CC: Images Reviewed?: Images reviewed and evaluated by me Time of 1ST Reevaluation: 22:00 Reevaluation 1ST: Unchanged Patient Education/Counseling: Diagnosis, Treatment Family Education/Counseling: No Family Present SEPSIS Sepsis Screen Date sepsis recognized/suspect: Jun 14, 2025 Time Sepsis recognized/suspect: 2045 Recent Procedure: No On Antibiotic Therapy: No Respiratory Rate >20: No Heart Rate >90: No Temp<36 C (96.8 F) or >38.3 C: No SBP <90 or MAP <65 mmHG: No New Acute Mental Status Change: No Is the patient on CPAP, BIPAP,: No Physician Orders Electrocardigram (06/14/25 20:58) Chest Xray 1 View (06/14/25 21:27) Electrocardigram (06/14/25 23:00) Vital Signs Date Time Temp Pulse Resp B/P (MAP) Pulse Ox O2 Delivery O2 Flow Rate FiO2 06/14/25 22:05 98 06/14/25 20:54 114 06/14/25 20:43 97.9 118 20 146/88 93 97.9 Laboratory Tests Test 06/14/25 21:39 White Blood Count 6.3 10^3/uL (4.4-10.8) Departure 1 Departure Time of Disposition: 22:00 Impression: Primary Impression: Acute respiratory failure Additional Impressions: Pleural effusion associated with pulmonary infection CHF NYHA class III (symptoms with mildly strenuous activities) Disposition: ADMITTED INPATIENT Admit to: Med Surg Condition: Unstable Comments Attestation: I personally saw and evaluated the patient. I agree with the findings and plan of care as documented by the resident note. JUSTIN FERRELL MD Critical Care Note Critical Care Time?: No Stability Stability form required: No Heart Score Heart Score: Heart Score Response (Comments) Value History Slightly Suspicious 0 EKG Repolarization Disturb 1 Age 45-64 1 Risk Factors 1 or 2 risk factors 1 Troponin Normal limit 0 Total 3 I personally scribed for JUSTIN FERRELL MD ([email or web address]) on 06/15/25 at 02:28. Electronically submitted by Nathaniel Gabriel [email or web address]). CHRIS MESSINA RESIDENT Jun 14, 2025 22:02 JUSTIN FERRELL MD Jun 15, 2025 02:28
--- NOTE | 2025-06-14 22:06 | ECG ---
[facility] Test Date: 2025-06-14 Test Time: 22:05:04 Pat Name: JAMIE BAIN Department: ED Room: 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
[2025-06-14 22:08] LABS: Hematocrit 44.0 % (36.0-46.0); Hemoglobin 14.8 g/dL (12.2-16.2); Mean Corpuscular Hemoglobin 30.4 pg (28.0-32.0); Mean Corpuscular Volume 90.3 fL (80.0-100.0); Nucleated Red Blood Cells % 0.1 %
[2025-06-14 22:09] LABS: Chloride 102 mmol/L (98-107); Potassium 4.1 mmol/L (3.5-5.1); Sodium 141 mmol/L (136-145)
[2025-06-14 22:10] LABS: Anion Gap 9 (5-15); Calcium 9.2 mg/dL (8.7-10.4); Carbon Dioxide 30 mmol/L (20-31)
[2025-06-14 22:16] LABS: BUN/Creatinine Ratio 21.9 (10.0-20.0); Blood Urea Nitrogen 16 mg/dL (9-23)
--- NOTE | 2025-06-14 22:16 | DVH ---
CHEST RADIOGRAPH Indication: sob Technique: 1 view Comparison: XY CHEST XRAY 1 VIEW on DOS: 05/13/25, XY CHEST XRAY 1 VIEW on DOS: 05/02/25, XY CHEST PORTABLE on DOS: 01/12/25, CHEST PORTABLE on DOS: 03/26/22, CXRP on DOS: 03/26/22 FINDINGS: Lines and Tubes: None. Lungs/Pleura: Vlciv-hj-tgljbqzc, pjhzr-mcxcyte-usuh-left pleural effusions with adjacent airspace disease. Diffuse interstitial prominence. Cardiomediastinum: Unchanged, normal heart size. Mitral clip. Other: No acute osseous abnormality. IMPRESSION: 1. Development of yeqcv-ffaxdps-jlzg-left pleural effusions with adjacent airspace disease, may be related to heart failure or multifocal infection.
[2025-06-14 22:18] LABS: Glucose 130 mg/dL (74-106)
[2025-06-14] MEDS ORDERED: DEXTROSE (50%) 50ML SYRG IV PRN (22:45)
[2025-06-14] MEDS ORDERED: ALBUTEROL SULF 2.5 MG/0.5ML(0.5%) NEB SOLN NEB PRN (22:45)
--- NOTE | 2025-06-14 23:03 | DVHHPRES ---
History of Present Illness Resident Creating Document: RED FERRERA RESIDENT History of Present Illness Ms Janet Bowen, a 64-year-old female with previous history of hdr-mzojnpk-yhxcfntad uncontrolled type 2 diabetes mellitus, hypertension, AFib on Eliquis, mitral valve repair surgery with metal implant attached, diastolic heart failure presented to the ER with the complaints of central chest pain, feeling of heavy sensation, increases with deep breathing. She reports having dry cough, nonproductive and no hemoptysis. She also reports having mild shortness of breaths, no relation with posture and wheezing. past medical history: As above Past surgical history: Mitral valve repair with metal implant, 4 sections, total abdominal hysterectomy, tonsillectomy Recent hospitalization: admitted with PNA in April Social history: Denies alcohol,smoking,drugs Drug allergies: Possible Ceftriaxone or doxycycline (was given during last admission, patient reports having allergies after taking those medicines, however she could not mentioned any particular name) Home medications: Apixaban, atenolol, atorvastatin, Basaglar insulin, Dilt XR, furosemide, [place], ibuprofen, Jardiance, Mounjaro, KCl, nitroglycerin Family history: Noncontributory PCP: Dr. Farzana Calvo Family [employer] Consumer [employer] Professor: Dr. Villagomez Code status: Full code Review of Systems Allergies: Coded Allergies: NO KNOWN ALLERGIES (Unverified , 05/02/25) Medications Current Medications Medications Dose Ordered Sig/Flakito Route Start Time Stop Time Status Last Admin Dose Admin Albuterol 1.25 mg Q4HPRN PRN NEB 06/14/25 22:45 UNV Diagnostic Test (Pha) 1 strip ACHS 06/15/25 07:00 UNV Insulin Human Regular ACHS SC 06/15/25 07:00 UNV Dextrose 50 ml UD PRN IV 06/14/25 22:45 UNV Furosemide 20 mg DAILY IV 06/15/25 10:00 UNV Levofloxacin/ Dextrose 100 ml @ 100 mls/hr DAILY IV 06/15/25 10:00 UNV Enoxaparin Sodium 60 mg DAILY SC 06/15/25 10:00 UNV Acetaminophen 650 mg Q4HP PRN PO 06/14/25 22:45 UNV Exam Vital Signs Vital Signs Date Time Temp Pulse Resp B/P (MAP) Pulse Ox O2 Delivery O2 Flow Rate FiO2 06/14/25 22:05 98 06/14/25 20:43 97.9 20 146/88 93 97.9 Labs/Xrays Labs Test 06/14/25 21:39 Range/Units White Blood Count 6.3 4.4-10.8 10^3/uL Red Blood Count 4.88 4.0-5.20 10^6/uL Hemoglobin 14.8 12.2-16.2 g/dL Hematocrit 44.0 36.0-46.0 % Mean Corpuscular Volume 90.3 80.0-100.0 fL Mean Corpuscular Hemoglobin 30.4 28.0-32.0 pg Mean Corpuscular Hemoglobin Concent 33.6 32.0-36.0 g/dL Red Cell Distribution Width 14.1 11.8-14.3 % Platelet Count 293 140-450 10^3/uL Mean Platelet Volume 9.3 6.9-10.8 fL Neutrophils (%) (Auto) 69.9 37.0-80.0 % Lymphocytes (%) (Auto) 23.0 10.0-50.0 % Monocytes (%) (Auto) 5.7 0.0-12.0 % Eosinophils (%) (Auto) 0.6 0.0-7.0 % Basophils (%) (Auto) 0.8 0.0-2.0 % Neutrophils # (Auto) 4.4 1.6-8.6 10 ^3/uL Lymphocytes # (Auto) 1.4 0.4-5.4 10 ^3/uL Monocytes # (Auto) 0.4 0-1.3 10 ^3/uL Eosinophils # (Auto) 0 0-0.8 10 ^3/uL Basophils # (Auto) 0.1 0-0.2 10 ^3/uL Nucleated Red Blood Cells 0.1 % Sodium Level 141 136-145 mmol/L Potassium Level 4.1 3.5-5.1 mmol/L Chloride Level 102 98-107 mmol/L Carbon Dioxide Level 30 20-31 mmol/L Anion Gap 9 5-15 Blood Urea Nitrogen 16 9-23 mg/dL Creatinine 0.73 0.550-1.02 mg/dL Glomerular Filtration Rate Calc 92 >90 mL/min BUN/Creatinine Ratio 21.9 H 10.0-20.0 Serum Glucose 130 H 74-106 mg/dL Calcium Level 9.2 8.7-10.4 mg/dL Troponin I High Sensitivity 5 </=34 ng/L B-Type Natriuretic Peptide 175.01 0-100 pg/mL SEPSIS Sepsis Screen Date sepsis recognized/suspect: Jun 14, 2025 Time Sepsis recognized/suspect: 2045 Recent Procedure: No On Antibiotic Therapy: No Respiratory Rate >20: No Heart Rate >90: No Temp<36 C (96.8 F) or >38.3 C: No SBP <90 or MAP <65 mmHG: No New Acute Mental Status Change: No Is the patient on CPAP, BIPAP,: No Physician Orders Troponin-I Hs (06/14/25 22:27) Troponin-I Hs (06/15/25 00:27) Chest Xray 1 View (06/14/25:27) Admit (06/14/25 22:41) Notify Of Changes From Base (06/14/25 22:41) Cardiac Diet-2gna,Lofat,Lochol (06/15/25 Breakfast) Albuterol Medneb (Ventolin Medneb) (06/14/25 22:45) Glucose Blood (Accu-Chek Comfort Curve T (06/15/25 07:00) Insulin R (Human) (Insulin R) (06/15/25 07:00) Dextrose 50% Syringe (06/14/25 22:45) Furosemide Injection (Lasix Injection) (06/15/25 10:00) Levofloxacin 500mg (Levaquin 500mg/ 100m (06/15/25 10:00) Levofloxacin 500mg (Levaquin 500mg/ 100m (06/14/25 22:45) Enoxaparin Sodium (Lovenox) (06/15/25 10:00) D-Dimer (06/14/25 22:41) Covid19 Antigen Alexandra (06/14/25 ) Rapid Influenza A&B (06/14/25 22:41) Mrsa Screen (06/14/25 22:41) Bilat Lower Dvt (06/14/25 22:41) Acetaminophen Tablet (Tylenol Tablet) (06/14/25 22:45) Insulin Lantus (Glargine) (Lantus) (06/15/25 07:00) Vital Signs Date Time Temp Pulse Resp B/P (MAP) Pulse Ox O2 Delivery O2 Flow Rate FiO2 06/14/25 22:05 98 06/14/25 20:54 114 06/14/25 20:43 97.9 118 20 146/88 93 97.9 Laboratory Tests Test 06/14/25 21:39 White Blood Count 6.3 10^3/uL (4.4-10.8) Assessment/Plan Assessment/Plan Acute hypoxic respiratory failure Pneumonia due to Gram-positive or Gram-negative organism -CXR: Bilateral patchy opacities with pleural effusions -IV levofloxacin 500 mg -albuterol med neb -nasal cannula oxygen -acetaminophen for pleuritic chest pain Diastolic heart failure with preserved ejection fraction (EF 65%) Chest pain rule out ACS AFib Hypertensive heart disease History of mitral valve repair with metal implant -EKG: No acute ischemic changes, troponin within normal range -BNP 175 -atenolol 50 mg 1 tablet p.o. daily. -therapeutic Lovenox -diltiazem 120 mg p.o. daily -sublingual nitroglycerin as needed Home medication Jardiance held Uncontrolled type 2 diabetes mellitus (hemoglobin A1c 8.4) -insulin Lantus 15 units subcutaneous -mild insulin sliding scale GI prophylaxis: Pantoprazole DVT prophylaxis: Lovenox Diet: Cardiac Goals of care discussed with the patient for more than 27 minutes: Full code status Case discussed with Dr. Bhardwaj, patient and RN Plan discussed with: Patient, Other My Orders Orders - RED FERRERA RESIDENT Procedure Category Date Status Time Admit ADMIT 06/14/25 Transmitted 22:41 Notify Of Changes [facility] 06/14/25 In Process From Base 22:41 Cardiac DIET 06/15/25 Transmitted Diet-2gna,Lofat,Lochol Breakfast Albuterol Medneb PHA 06/14/25 Logged (Ventolin Medneb) 22:45 Glucose Blood PHA 06/15/25 Logged (Accu-Chek Comfort 07:00 Insulin R (Human) PHA 06/15/25 Logged (Insulin R) 07:00 Dextrose 50% Syringe PHA 06/14/25 Logged 22:45 Furosemide Injection PHA 06/15/25 Logged (Lasix Injection) 10:00 Levofloxacin 500mg PHA 06/15/25 Logged (Levaquin 500mg/ 100m 10:00 Levofloxacin 500mg PHA 11/17/25 Logged (Levaquin 500mg/ 100m 22:45 Enoxaparin Sodium PHA 06/15/25 Logged (Lovenox) 10:00 D-Dimer LAB 06/14/25 Logged 22:41 Covid19 Antigen Alexandra LAB 06/14/25 Logged Rapid Influenza A&B LAB 06/14/25 Logged 22:41 Mrsa Screen GARCIA 06/14/25 Logged 22:41 Bilat Lower Dvt US 06/14/25 Logged 22:41 Acetaminophen Tablet PHA 06/14/25 Logged (Tylenol Tablet) 22:45 Insulin Lantus PHA 06/15/25 Transmitted (Glargine) (Lantus) 07:00 Date of Service: Jun 14, 2025 Billing Provider: TOMAS BHARDWAJ MD Common Visit Codes: 54171-[id number] INP/OBS CARE (HIGH) Secondary Visit Codes: 66619-[id number] CARE PLAN 30 MINUTES RED FERRERA RESIDENT Jun 14, 2025 23:03
[2025-06-15] VITALS (15 sets, daily range): BP systolic 132–172; BP diastolic 83–100; PULSE 83–118; RESP 16–20; TEMP 97.4–98; O2SAT 91–98
--- NOTE | 2025-06-15 00:23 | DVH ---
Bilateral lower extremity venous duplex Clinical History: Rule out DVT Comparison: None Technique: Duplex Doppler evaluation of the deep venous systems of both lower extremities from the common femoral veins to the popliteal veins including color Doppler and spectral/pulsed waveform analysis was performed. Findings: RIGHT SIDE: The common femoral vein demonstrates appropriate compressibility and waveform variability. There is compressibility/patency of the great saphenous vein at the proximal thigh. The femoral vein demonstrates appropriate compressibility and waveform variability. The deep femoral vein demonstrates appropriate compressibility and waveform variability. The popliteal vein demonstrates appropriate compressibility and waveform variability. There is normal compressibility at the tibioperoneal trunk. LEFT SIDE: The common femoral vein demonstrates appropriate compressibility and waveform variability. There is compressibility/patency of the great saphenous vein at the proximal thigh. The femoral vein demonstrates appropriate compressibility and waveform variability. The deep femoral vein demonstrates appropriate compressibility and waveform variability. The popliteal vein demonstrates appropriate compressibility and waveform variability. There is normal compressibility at the tibioperoneal trunk. Impression: 1. No right or left femoropopliteal venous thrombosis.
[2025-06-15] MEDS: NITROGLYCERIN 0.4 MG SL TAB SL ONE (01:39)
[2025-06-15] MEDS ORDERED: ALBU108A5 PO (04:21)
[2025-06-15] MEDS ORDERED: MAGN400T6 PO (04:21)
[2025-06-15] MEDS ORDERED: EMPA1TAB3 PO (04:22)
[2025-06-15] MEDS: PANTOPRAZOLE 40 MG TAB PO SCH (05:21)
[2025-06-15 06:18] LABS: COVID19 ANTIGEN SOFIA FIA NEGATIVE (NEGATIVE)
[2025-06-15] MEDS: ACCU-CHEK COMFORT CURVE STRIP VI SCH (06:58)
[2025-06-15] MEDS: InsuLIN REG 1unit/0.01ml Soln (100units/ml) SC SCH (06:58)
[2025-06-15] MEDS: INSULIN LANTUS (GLARGINE) 1 /0.01ml (100units/ml) SC SCH (06:59)
[2025-06-15] MEDS: dilTIAZem 120MG ER CAP PO SCH (09:01)
[2025-06-15] MEDS: ATENOLOL 25 MG TAB PO SCH (09:02)
[2025-06-15] MEDS: FUROSEMIDE 20 MG/2 ML VIAL IV SCH (09:02)
[2025-06-15] MEDS: ENOXAPARIN SOD 60 MG/0.6 ML SYRINGE SC SCH (09:03)
[2025-06-15] MEDS ORDERED: VANCOMYCIN PER PHARMACY 0 MG IV SCH (10:15)
[2025-06-15 11:12] LABS: Alanine Aminotransferase 19 U/L (7-40); Albumin 4.1 g/dL (3.2-4.8); Alkaline Phosphatase 108 U/L (46-116); Anion Gap 9 (5-15); BUN/Creatinine Ratio 19.6 (10.0-20.0); Blood Urea Nitrogen 11 mg/dL (9-23); Carbon Dioxide 28 mmol/L (20-31); Chloride 102 mmol/L (98-107); Potassium 3.7 mmol/L (3.5-5.1); Sodium 139 mmol/L (136-145); Total Protein 7.2 g/dL (5.7-8.2)
[2025-06-15 11:13] LABS: Bilirubin, Total 0.8 mg/dL (0.2-1.0)
[2025-06-15 11:14] LABS: Calcium 8.6 mg/dL (8.7-10.4); Glucose 108 mg/dL (74-106)
[2025-06-15 11:16] LABS: Free T4 (Free Thyroxine) 1.58 ng/dL (0.89-1.76)
[2025-06-15] MEDS: VANCOMYCIN 1GM/250ML KIT 250 ML IV ONE (12:37)
[2025-06-15 13:54] LABS: Urine Protein, UAD Negative (Negative)
[2025-06-15] MEDS ORDERED: IOHEXOL 300 MG/ML 100ML BOTTLE IJ ONE (16:35)
[2025-06-15] MEDS ORDERED: IOHEXOL 350 MG/ML 100ML IJ ONE (16:37)
--- NOTE | 2025-06-15 16:50 | DVHPNRES ---
Progress Note Date Seen: Jun 15, 2025 Resident Creating Document: MARIBELL PETERS RESIDENT Medical Necessity Reason Pt with a Central, PICC or Fol: No Subjective Review of Systems Patient is a 64-year-old female with previous history of cvj-xcgqqzm-uokehglau uncontrolled type 2 diabetes mellitus, hypertension, AFib on Eliquis, mitral valve repair surgery with metal implant attached, diastolic heart failure presented to the ER with the complaints of shortness of breath and central chest pain, feeling of heavy sensation, increases with deep breathing since 2 weeks.. She reports having dry cough since 3 days, nonproductive and no hemoptysis. Patient also states she is feeling tired with generalized body weakness. She also reports having mild shortness of breaths, no relation with posture and wheezing. Patient was recently admitted in the hospital in April with pneumonia. In last admission patient was given ceftriaxone or doxycycline and patient reports having worsening of shortness of breath after taking that medication. Past surgical history: Mitral valve repair with metal implant, 4 sections, total abdominal hysterectomy, tonsillectomy Social history: Denies alcohol,smoking,drugs Home medications: Apixaban, atenolol, atorvastatin, Basaglar insulin, Dilt XR, furosemide, [place], ibuprofen, Jardiance, Mounjaro, KCl, nitroglycerin Family history: Noncontributory PCP: Dr. Farzana Calvo Engine Dynamometer Tester: Dr. Villagomez 06/15/2025: Patient seen at bedside. Patient complains of shortness of breath and is on 2 L oxygen but has dry cough which increases the pain. Patient also states pain increased when she takes a deep breath. Echo and CT angio were ordered. Patient's recent EF is 65. DVT was negative, chest x-ray showed right greater than left pleural effusion. COVID and flu negative. Objective vital signs Vital Sign Date Time Temp Pulse Resp B/P (MAP) Pulse Ox O2 Delivery O2 Flow Rate FiO2 06/15/25 12:44 97.8 86 16 132/90 (104) 98 97.8 06/15/25 10:00 Nasal Cannula 2.0 06/15/25 10:00 28 Total Intake and Output 06/14/25 06/14/25 06/15/25 15:00 23:00 07:00 Intake Total 0 ml Balance 0 ml medications Current Medications Medications Dose Ordered Sig/Flakito Route Start Time Stop Time Status Last Admin Dose Admin Albuterol 1.25 mg Q4HPRN PRN NEB 06/14/25 22:45 Diagnostic Test (Pha) 1 strip ACHS 06/15/25 07:00 06/15/25 11:42 1 STRIP Insulin Human Regular ACHS SC 06/15/25 07:00 06/15/25 06:58 2 UNITS Dextrose 50 ml UD PRN IV 06/14/25 22:45 Furosemide 20 mg DAILY IV 06/15/25 10:00 06/15/25 09:02 20 MG Levofloxacin 50 ml @ 50 mls/hr DAILY IV 06/15/25 10:00 06/15/25 09:00 50 MLS/HR Enoxaparin Sodium 60 mg Q12H SC 06/15/25 10:00 06/15/25 09:03 60 MG Acetaminophen 650 mg Q4HP PRN PO 06/14/25 22:45 Insulin Glargine 15 units QAM SC 06/15/25 07:00 06/15/25 06:59 15 UNITS Atenolol 50 mg DAILY PO 06/15/25 10:00 06/15/25 09:02 50 MG Diltiazem HCl 120 mg DAILY PO 06/15/25 10:00 06/15/25 09:01 120 MG Pantoprazole Sodium 40 mg DAILY@0600 PO 06/15/25 06:00 06/15/25 05:21 40 MG Vancomycin HCl 0 ml @ 0 mls/hr PER PHARMACY IV 06/15/25 10:15 Examination General: Patient alert and oriented in person, place and time. Patient following commands. HEENT: Normocephalic, atraumatic, moist mucous membranes Respiratory/pulmonary: Bilateral crackles heard on auscultation Cardiovascular: Normal heart sounds S1 and S2 with no associated murmurs Abdomen: Abdomen nondistended, there is no pain to palpation in any of the abdominal quadrants, no palpable masses. Extremities: There is no peripheral edema present at the lower extremities. Peripheral Pulses: 3+ Radial (R). 3+ Radial (L). 3+ Dorsalis pedis (R). 3+ Dorsalis pedis(L) Skin: No rashes or pruritus, there is no sacral edema present at this time. Neurological: Intact cranial nerves with no focal neurologic deficits laboratory and microbiology Laboratory Tests 06/15/25 10:49 06/14/25 21:39 Test 06/15/25 10:49 Range/Units Serum Glucose 108 H 74-106 mg/dL Microbiology Date/Time Source Procedure Growth Status 06/15/25 05:00 Nose MRSA Screen - Final Complete Problem List/Assessment/Plan Problem List/Assessment/Plan Acute hypoxic respiratory failure Pneumonia due to Gram-positive or Gram-negative organism -CXR: Bilateral patchy opacities with pleural effusions -IV levofloxacin 500 mg - IV vancomycin has vancomycin added for recent hospitalization -albuterol med neb -nasal cannula oxygen -acetaminophen for pleuritic chest pain - COVID, flu negative Diastolic heart failure with preserved ejection fraction (EF 65%) Chest pain ruled out ACS AFib Hypertensive heart disease History of mitral valve repair with metal implant -EKG: No acute ischemic changes, troponin within normal range -BNP 175 -atenolol 50 mg 1 tablet p.o. daily. -diltiazem 120 mg p.o. daily Home medication Jardiance held Uncontrolled type 2 diabetes mellitus (hemoglobin A1c 8.4) -insulin Lantus 15 units subcutaneous -mild insulin sliding scale GI prophylaxis: Protonix DVT prophylaxis: Lovenox Diet: Cardiac Goals of care discussed with the patient for more than 27 minutes: Full code status Case discussed with Dr. Oconnell , patient and RN Plan discussed with: Patient My Orders My Orders Orders - MARIBELL PETERS Procedure Category Date Status Time Respiratory Culture GARCIA 06/15/25 Logged W/ Gs 09:[address] Ct [address] 06/15/25 Logged Contrast 16:24 Echo 2d Mode Cardiac US 06/15/25 Logged DOP 16:24 Date of Service: Jun 15, 2025 Billing Provider: ADRIENNE OCONNELL MD Common Visit Codes: [id number] INP/OBS CARE(HIGH) MARIBELL PETERS Jun 15, 2025 16:50 ADRIENNE OCONNELL MD Jun 15, 2025 18:41
--- NOTE | 2025-06-15 17:20 | DVH ---
EXAM: CT CT ANGIO CHEST CONTRAST HISTORY: r/o pE TECHNIQUE: CT angiogram was performed. CT scans at this facility use dose modulation, iterative reconstruction, and/or weight based dosing when appropriate to reduce radiation dose to as low as reasonably achievable. Coronal and sagittal reformations and maximum intensity projection images were created from the transaxial source data by the radioisotope technologist and workstation, as well as 3-D volume rendered images with MIPs. COMPARISON: CT CT ANGIO CHEST CONTRAST on DOS: 05/11/25 FINDINGS: [LOWER NECK]: Left thyroid lobe nodule measuring 2.5 cm. Consider nonemergent ultrasound of the thyroid [LYMPH NODES/MEDIASTINUM]: Small subcentimeter likely reactive aortopulmonary window and right hilar lymph nodes [CARDIOVASCULAR]: Normal cardiac size. No pericardial effusion. No aneurysmal dilatation of the great vessels. Coronary artery calcifications. [PULMONARY ARTERIES]: No pulmonary arterial filling defect. Normal caliber of the main pulmonary artery. No evidence of elevated right heart pressures. [UPPER ABDOMEN]: Unremarkable. [MUSCULOSKELETAL]: No acute fracture or aggressive focal osseous lesion. Multilevel degenerative change of the visualized spine. [CHEST WALL]: Unremarkable. [LUNG PARENCHYMA/PLEURAL SPACE]: Medium to large right-sided pleural effusion. Peripheral interstitial and alveolar edema with diffuse distribution. Atelectasis in bilateral lung bases. Small left-sided pleural effusion. Overall appearance of volume overload correlate for congestive heart failure IMPRESSION: 1. No CTA evidence of an acute pulmonary embolism. 2. Medium to large right-sided pleural effusion with small left-sided pleural effusion. 3. Peripheral interstitial and alveolar edema with diffuse distribution. 4. Overall appearance of volume overload correlate for congestive heart failure.
[2025-06-15] MEDS: ACETAMINOPHEN 325 MG TAB PO PRN (21:31)
[2025-06-16] VITALS (10 sets, daily range): BP systolic 118–140; BP diastolic 80–89; PULSE 63–83; RESP 16–19; TEMP 97.5–98.6; O2SAT 94–98
[2025-06-16] MEDS: VANCOMYCIN 750MG KIT 100 ML IV SCH (00:28)
[2025-06-16 05:36] LABS: Hematocrit 41.0 % (36.0-46.0); Hemoglobin 13.7 g/dL (12.2-16.2); Mean Corpuscular Hemoglobin 30.0 pg (28.0-32.0); Mean Corpuscular Volume 90.0 fL (80.0-100.0); Nucleated Red Blood Cells % 0.0 %
[2025-06-16 05:47] LABS: Calcium 8.8 mg/dL (8.7-10.4); Chloride 102 mmol/L (98-107); Sodium 141 mmol/L (136-145)
[2025-06-16 05:48] LABS: Anion Gap 11 (5-15); Carbon Dioxide 28 mmol/L (20-31)
[2025-06-16 05:54] LABS: BUN/Creatinine Ratio 17.3 (10.0-20.0); Blood Urea Nitrogen 9 mg/dL (9-23); Glucose 84 mg/dL (74-106)
[2025-06-16 05:57] LABS: Potassium 3.5 mmol/L (3.5-5.1)
[2025-06-16 07:52] LABS: INR 1.12 (0.9-1.15); Partial Thromboplastin Time 30.4 SEC (24.5-34.5); Prothrombin Time 11.7 sec (9.3-11.8)
--- NOTE | 2025-06-16 08:41 | DVH ---
Exam: US CHEST ULTRASOUND Clinical History: fluid check, possible thora Comparison: CT CT ANGIO CHEST CONTRAST on DOS: 06/15/25, XY CHEST XRAY 1 VIEW on DOS: 06/14/25, XY CHEST XRAY 1 VIEW on DOS: 05/13/25, CT CT ANGIO CHEST CONTRAST on DOS: 05/11/25, XY CHEST TWO VIEWS ROUTINE on DOS: 05/09/25 Technique: Targeted sonographic evaluation of the soft tissues of the bilateral chest was obtained utilizing grayscale and color Doppler imaging. Findings/Impression: Umoy-sv-[id number] right pleural effusion. Trace left pleural effusion.
[2025-06-16] MEDS ORDERED: SODIUM CHL 3% HYPERTONIC 500 ML BAG IN ONE (11:15)
--- NOTE | 2025-06-16 20:11 | DVHPNRES ---
Progress Note Date Seen: Jun 16, 2025 Resident Creating Document: MARIBELL PETERS RESIDENT Medical Necessity Reason Pt with a Central, PICC or Fol: No Subjective Review of Systems Patient is a 64-year-old female with previous history of oig-slvaauh-cyvprquxz uncontrolled type 2 diabetes mellitus, hypertension, AFib on Eliquis, mitral valve repair surgery with metal implant attached, diastolic heart failure presented to the ER with the complaints of shortness of breath and central chest pain, feeling of heavy sensation, increases with deep breathing since 2 weeks.. She reports having dry cough since 3 days, nonproductive and no hemoptysis. Patient also states she is feeling tired with generalized body weakness. She also reports having mild shortness of breaths, no relation with posture and wheezing. Patient was recently admitted in the hospital in April with pneumonia. In last admission patient was given ceftriaxone or doxycycline and patient reports having worsening of shortness of breath after taking that medication. Past surgical history: Mitral valve repair with metal implant, 4 sections, total abdominal hysterectomy, tonsillectomy Social history: Denies alcohol,smoking,drugs Home medications: Apixaban, atenolol, atorvastatin, Basaglar insulin, Dilt XR, furosemide, [place], ibuprofen, Jardiance, Mounjaro, KCl, nitroglycerin Family history: Noncontributory PCP: Dr. Farzana Calvo Historical Records Administrator: Dr. Villagomez 06/15/2025: Patient seen at bedside. Patient complains of shortness of breath and is on 2 L oxygen but has dry cough which increases the pain. Patient also states pain increased when she takes a deep breath. Echo and CT angio were ordered. Patient's recent EF is 65. DVT was negative, chest x-ray showed right greater than left pleural effusion. COVID and flu negative. 06/16/2025: Patient seen at bedside. Patient still complains of shortness of breath and is on 2 L oxygen. Paracentesis today. Chest ultrasound showed [id number] right pleural effusion and trace left pleural effusion. CT angio was negative for PE. Objective vital signs Vital Sign Date Time Temp Pulse Resp B/P (MAP) Pulse Ox O2 Delivery O2 Flow Rate FiO2 06/16/25 17:00 97.6 67 17 125/80 (95) 96 97.6 06/16/25 10:16 Nasal Cannula* 1 24 Total Intake and Output 06/15/25 06/15/25 06/16/25 15:00 23:00 07:00 Intake Total 300 ml 700 ml 300 ml Balance 300 ml 700 ml 300 ml medications Current Medications Medications Dose Ordered Sig/Flakito Route Start Time Stop Time Status Last Admin Dose Admin Albuterol 1.25 mg Q4HPRN PRN NEB 06/14/25 22:45 Diagnostic Test (Pha) 1 strip ACHS 06/15/25 07:00 06/16/25 16:52 1 STRIP Insulin Human Regular ACHS SC 06/15/25 07:00 06/16/25 11:25 3 UNITS Dextrose 50 ml UD PRN IV 06/14/25 22:45 Furosemide 20 mg DAILY IV 06/15/25 10:00 06/16/25 09:37 20 MG Enoxaparin Sodium 60 mg Q12H SC 06/15/25 10:00 Hold 06/15/25 21:31 60 MG Acetaminophen 650 mg Q4HP PRN PO 06/14/25 22:45 06/16/25 16:51 650 MG Insulin Glargine 15 units QAM SC 06/15/25 07:00 06/15/25 06:59 15 UNITS Atenolol 50 mg DAILY PO 06/15/25 10:00 06/16/25 09:36 50 MG Diltiazem HCl 120 mg DAILY PO 06/15/25 10:00 06/16/25 09:35 120 MG Pantoprazole Sodium 40 mg DAILY@0600 PO 06/15/25 06:00 06/16/25 06:00 40 MG Vancomycin HCl 0 ml @ 0 mls/hr PER PHARMACY IV 06/15/25 10:15 Vancomycin HCl 100 ml @ 100 mls/hr Q12H IV 06/16/25 01:00 06/16/25 11:24 100 MLS/HR Levofloxacin/ Dextrose 100 ml @ 100 mls/hr DAILY IV 06/17/25 10:00 Examination General: Patient alert and oriented in person, place and time. Patient following commands. HEENT: Normocephalic, atraumatic, moist mucous membranes Respiratory/pulmonary: Bilateral crackles heard on auscultation Cardiovascular: Normal heart sounds S1 and S2 with no associated murmurs Abdomen: Abdomen nondistended, there is no pain to palpation in any of the abdominal quadrants, no palpable masses. Extremities: There is no peripheral edema present at the lower extremities. Peripheral Pulses: 3+ Radial (R). 3+ Radial (L). 3+ Dorsalis pedis (R). 3+ Dorsalis pedis(L) Skin: No rashes or pruritus, there is no sacral edema present at this time. Neurological: Intact cranial nerves with no focal neurologic deficits laboratory and microbiology Laboratory Tests 06/16/25 04:24 Test 06/16/25 04:24 Range/Units Serum Glucose 84 74-106 mg/dL Microbiology Date/Time Source Procedure Growth Status 06/15/25 05:00 Nose MRSA Screen - Final Complete Problem List/Assessment/Plan Problem List/Assessment/Plan Acute hypoxic respiratory failure Pneumonia due to Gram-positive or Gram-negative organism Ruled Out PE Bilateral pleural effusion -CT angio: Negative - chest ultrasound showed [id number] right pleural effusion and trace left pleural effusion -CXR: Bilateral patchy opacities with pleural effusions -IV levofloxacin 500 mg - IV vancomycin has vancomycin added for recent hospitalization -albuterol med neb -nasal cannula oxygen -acetaminophen for pleuritic chest pain - COVID, flu negative Diastolic heart failure with preserved ejection fraction (EF 65%) Chest pain ruled out ACS AFib Hypertensive heart disease History of mitral valve repair with metal implant -EKG: No acute ischemic changes, troponin within normal range -BNP 175 -atenolol 50 mg 1 tablet p.o. daily. -diltiazem 120 mg p.o. daily Home medication Jardiance held Uncontrolled type 2 diabetes mellitus (hemoglobin A1c 8.4) -insulin Lantus 15 units subcutaneous -mild insulin sliding scale GI prophylaxis: Protonix DVT prophylaxis: Lovenox Diet: Cardiac Goals of care discussed with the patient for more than 27 minutes: Full code status Case discussed with Dr. Oconnell , patient and RN Plan discussed with: Patient Date of Service: Jun 16, 2025 Billing Provider: ADRIENNE OCONNELL MD Common Visit Codes: [id number] INP/OBS CARE(HIGH) MARIBELL PETERS RESIDENT Jun 16, 2025 20:11 ADRIENNE OCONNELL MD Jun 16, 2025 22:36
[2025-06-17] VITALS (10 sets, daily range): BP systolic 115–141; BP diastolic 73–84; PULSE 72–107; RESP 16–20; TEMP 97.6–98.9; O2SAT 92–98
[2025-06-17 06:43] LABS: Hematocrit 40.3 % (36.0-46.0); Hemoglobin 13.7 g/dL (12.2-16.2); Mean Corpuscular Hemoglobin 30.8 pg (28.0-32.0); Mean Corpuscular Volume 90.4 fL (80.0-100.0); Nucleated Red Blood Cells % 0.0 %
[2025-06-17 06:50] LABS: Calcium 8.7 mg/dL (8.7-10.4); Chloride 103 mmol/L (98-107); Sodium 142 mmol/L (136-145)
[2025-06-17 06:51] LABS: Anion Gap 12 (5-15); Carbon Dioxide 27 mmol/L (20-31)
[2025-06-17 06:56] LABS: BUN/Creatinine Ratio 16.7 (10.0-20.0); Glucose 100 mg/dL (74-106)
[2025-06-17 07:08] LABS: Blood Urea Nitrogen 8 mg/dL (9-23); Potassium 3.2 mmol/L (3.5-5.1)
--- NOTE | 2025-06-17 10:58 | DVH ---
PROCEDURE: ULTRASOUND GUIDED THORACENTESIS USING TEMPORARY CATHETER HISTORY: PLEURAL EFFUSION DOCUMENTATION: Informed consent was obtained and a procedural time out was performed. FINDINGS: The risks and benefits of the procedure including bleeding, infection and pneumothorax were explained to the patient and written informed consent obtained. Optimal site for puncture long the right posterior chest wall was determined using real-time ultrasound and the region sterilized. Local anesthesia was instilled. A 5 [place] catheter was then advanced into the pleural space and 0.85 liters of clear tinged fluid was removed. The patient tolerated the procedure well. IMPRESSION: 1. Successful right thoracentesis with removal of 0.85 L of clear yellow fluid.
--- NOTE | 2025-06-17 11:02 | DVH ---
CHEST RADIOGRAPH Indication: s/p thoracentesis Technique: Single frontal view of the chest was obtained Comparison: XY CHEST XRAY 1 VIEW on DOS: 06/14/25, XY CHEST XRAY 1 VIEW on DOS: 05/13/25, XY CHEST TWO VIEWS ROUTINE on DOS: 05/09/25, XY CHEST XRAY 1 VIEW on DOS: 05/02/25, XY CHEST PORTABLE on DOS: 01/12/25 FINDINGS: Lines and Tubes: None Lungs: There are mild increased interstitial markings. Effusions are no longer present. Pleura: No effusion. No pneumothorax. Cardiomediastinal contours: Unremarkable Bones: No acute osseous abnormality. IMPRESSION: 1. Mild increased interstitial markings, markedly improved from prior exam.
[2025-06-17] MEDS: POTASSIUM EFFERVESENT TAB 25 MEQ PO ONE (11:06)
--- NOTE | 2025-06-17 16:33 | DVHPNRES ---
Progress Note Date Seen: Jun 17, 2025 Resident Creating Document: MARIBELL PETERS RESIDENT Medical Necessity Reason Pt with a Central, PICC or Fol: No Subjective Review of Systems Patient is a 64-year-old female with previous history of avt-bljuyar-melbtzjmy uncontrolled type 2 diabetes mellitus, hypertension, AFib on Eliquis, mitral valve repair surgery with metal implant attached, diastolic heart failure presented to the ER with the complaints of shortness of breath and central chest pain, feeling of heavy sensation, increases with deep breathing since 2 weeks.. She reports having dry cough since 3 days, nonproductive and no hemoptysis. Patient also states she is feeling tired with generalized body weakness. She also reports having mild shortness of breaths, no relation with posture and wheezing. Patient was recently admitted in the hospital in April with pneumonia. In last admission patient was given ceftriaxone or doxycycline and patient reports having worsening of shortness of breath after taking that medication. Past surgical history: Mitral valve repair with metal implant, 4 sections, total abdominal hysterectomy, tonsillectomy Social history: Denies alcohol,smoking,drugs Home medications: Apixaban, atenolol, atorvastatin, Basaglar insulin, Dilt XR, furosemide, [place], ibuprofen, Jardiance, Mounjaro, KCl, nitroglycerin Family history: Noncontributory PCP: Dr. Farzana Calvo Athletic Agent: Dr. Villagomez 06/15/2025: Patient seen at bedside. Patient complains of shortness of breath and is on 2 L oxygen but has dry cough which increases the pain. Patient also states pain increased when she takes a deep breath. Echo and CT angio were ordered. Patient's recent EF is 65. DVT was negative, chest x-ray showed right greater than left pleural effusion. COVID and flu negative. 06/16/2025: Patient seen at bedside. Patient still complains of shortness of breath and is on 2 L oxygen. Paracentesis today. Chest ultrasound showed [id number] right pleural effusion and trace left pleural effusion. CT angio was negative for PE. 06/17/2025: Patient seen at bedside. Patient underwent paracentesis today, patient states she feels lot better and is on room air. patient may be discharged tomorrow. Objective vital signs Vital Sign Date Time Temp Pulse Resp B/P (MAP) Pulse Ox O2 Delivery O2 Flow Rate FiO2 06/17/25 13:00 98.1 74 16 131/76 (94) 96 98.1 06/17/25 10:00 Nasal Cannula 1.0 06/17/25 10:00 24 Total Intake and Output 06/16/25 06/16/25 06/17/25 15:00 23:00 07:00 Intake Total 150 ml 200 ml 100 ml Balance 150 ml 200 ml 100 ml medications Current Medications Medications Dose Ordered Sig/Flakito Route Start Time Stop Time Status Last Admin Dose Admin Albuterol 1.25 mg Q4HPRN PRN NEB 06/14/25 22:45 Diagnostic Test (Pha) 1 strip ACHS 06/15/25 07:00 06/17/25 11:42 1 STRIP Insulin Human Regular ACHS SC 06/15/25 07:00 06/16/25 11:25 3 UNITS Dextrose 50 ml UD PRN IV 06/14/25 22:45 Furosemide 20 mg DAILY IV 06/15/25 10:00 06/17/25 11:06 20 MG Enoxaparin Sodium 60 mg Q12H SC 06/15/25 10:00 Hold 06/15/25 21:31 60 MG Acetaminophen 650 mg Q4HP PRN PO 06/14/25 22:45 06/17/25 11:07 650 MG Insulin Glargine 15 units QAM SC 06/15/25 07:00 06/15/25 06:59 15 UNITS Atenolol 50 mg DAILY PO 06/15/25 10:00 06/17/25 11:08 50 MG Diltiazem HCl 120 mg DAILY PO 06/15/25 10:00 06/17/25 11:07 120 MG Pantoprazole Sodium 40 mg DAILY@0600 PO 06/15/25 06:00 06/17/25 06:01 40 MG Vancomycin HCl 0 ml @ 0 mls/hr PER PHARMACY IV 06/15/25 10:15 Levofloxacin/ Dextrose 100 ml @ 100 mls/hr DAILY IV 06/17/25 10:00 06/17/25 11:10 100 MLS/HR Vancomycin HCl 250 ml @ 250 mls/hr Q12H IV 06/18/25 01:00 Examination General: Patient alert and oriented in person, place and time. Patient following commands. HEENT: Normocephalic, atraumatic, moist mucous membranes Respiratory/pulmonary: Bilateral crackles heard on auscultation Cardiovascular: Normal heart sounds S1 and S2 with no associated murmurs Abdomen: Abdomen nondistended, there is no pain to palpation in any of the abdominal quadrants, no palpable masses. Extremities: There is no peripheral edema present at the lower extremities. Peripheral Pulses: 3+ Radial (R). 3+ Radial (L). 3+ Dorsalis pedis (R). 3+ Dorsalis pedis(L) Skin: No rashes or pruritus, there is no sacral edema present at this time. Neurological: Intact cranial nerves with no focal neurologic deficits laboratory and microbiology Laboratory Tests 06/17/25 04:35 Test 06/17/25 04:35 Range/Units Serum Glucose 100 74-106 mg/dL Microbiology Date/Time Source Procedure Growth Status 06/15/25 05:00 Nose MRSA Screen - Final Complete Problem List/Assessment/Plan Problem List/Assessment/Plan Acute hypoxic respiratory failure Pneumonia due to Gram-positive or Gram-negative organism Ruled Out PE Bilateral pleural effusion -CT angio: Negative - chest ultrasound showed [id number] right pleural effusion and trace left pleural effusion -CXR: Bilateral patchy opacities with pleural effusions -IV levofloxacin 500 mg - IV vancomycin has vancomycin added for recent hospitalization -albuterol med neb -nasal cannula oxygen -acetaminophen for pleuritic chest pain - COVID, flu negative Diastolic heart failure with preserved ejection fraction (EF 65%) Chest pain ruled out ACS AFib Hypertensive heart disease History of mitral valve repair with metal implant -EKG: No acute ischemic changes, troponin within normal range -BNP 175 -atenolol 50 mg 1 tablet p.o. daily. -diltiazem 120 mg p.o. daily Home medication Jardiance held Uncontrolled type 2 diabetes mellitus (hemoglobin A1c 8.4) -insulin Lantus 15 units subcutaneous -mild insulin sliding scale GI prophylaxis: Protonix DVT prophylaxis: Lovenox Diet: Cardiac Goals of care discussed with the patient for more than 27 minutes: Full code status Case discussed with Dr. Oconnell , patient and RN Plan discussed with: Patient My Orders My Orders Orders - MARIBELL PETERS RESIDENT Procedure Category Date Status Time Thoracentesis US 06/17/25 Resulted 09:25 Date of Service: Jun 17, 2025 Billing Provider: ADRIENNE OCONNELL MD Common Visit Codes: [id number] INP/OBS CARE(HIGH) MARIBELL PETERS RESIDENT Jun 17, 2025 16:33 ADRIENNE OCONNELL MD Jun 17, 2025 23:37
[2025-06-18] VITALS (10 sets, daily range): BP systolic 106–135; BP diastolic 66–76; PULSE 70–85; RESP 12–18; TEMP 36.7; O2SAT 93–98
[2025-06-18] MEDS: VANCOMYCIN 1GM/250ML KIT 250 ML IV SCH (01:00)
[2025-06-18 07:39] LABS: Anion Gap 13 (5-15); Carbon Dioxide 24 mmol/L (20-31); Chloride 103 mmol/L (98-107); Sodium 140 mmol/L (136-145)
[2025-06-18 07:40] LABS: Calcium 9.2 mg/dL (8.7-10.4); Potassium 3.1 mmol/L (3.5-5.1)
[2025-06-18 07:45] LABS: BUN/Creatinine Ratio 18.9 (10.0-20.0); Blood Urea Nitrogen 10 mg/dL (9-23)
[2025-06-18 07:46] LABS: Glucose 126 mg/dL (74-106)
[2025-06-18] MEDS: POTASSIUM EFFERVESENT TAB 25 MEQ PO ONE (12:04)
[2025-06-18 12:07] LABS: Glucose, Body Fluid 112.0 mg/dL (.); LD, Body Fluid 126.0 IU/L (.)
[2025-06-18] MEDS ORDERED: DOXY1CAP57 PO (15:58)
[2025-06-18] MEDS ORDERED: LEVO750T40 PO (15:58)
--- NOTE | 2025-06-18 16:14 | DVHDSRES ---
Discharge Summary Date of Admission Resident Creating Document: MARIBELL PETERS Jun 14, 2025 at 22:41 Date of Discharge: Jun 18, 2025 Admitting Diagnosis Acute respiratory failure Labs/Diagnostic Data: Laboratory Results Test 06/18/25 11:57 06/18/25 04:39 06/17/25 09:55 06/17/25 04:35 POC Glucose 178 mg/dl (70-106) Sodium Level 140 mmol/L (136-145) Potassium Level 3.1 mmol/L (3.5-5.1) Chloride Level 103 mmol/L (98-107) Carbon Dioxide Level 24 mmol/L (20-31) Anion Gap 13 (5-15) Blood Urea Nitrogen 10 mg/dL (9-23) Creatinine 0.53 mg/dL (0.550-1.02) Glomerular Filtration Rate Calc 103 mL/min (>90) BUN/Creatinine Ratio 18.9 (10.0-20.0) Serum Glucose 126 mg/dL (74-106) Calcium Level 9.2 mg/dL (8.7-10.4) Magnesium Level 2.0 mg/dL (1.6-2.6) Body Fluid Source Pleural fluid Body Fluid pH 7.0 Body Fluid WBC (Manual) 1389 CUMM (0-200) Body Fluid RBC (Manual) 641258 CUMM (0-2000) Body Fluid Mononuclear Cells 91 % Body Fluid Polymorphonuclear Cells 9 % (0-25) Body Fluid Glucose 112 mg/dL (.) Body Fluid Total Protein 2.8 g/dL (.) Body Fluid Lactate Dehydrogenase 126 IU/L (.) White Blood Count 6.4 10^3/uL (4.4-10.8) Red Blood Count 4.46 10^6/uL (4.0-5.20) Hemoglobin 13.7 g/dL (12.2-16.2) Hematocrit 40.3 % (36.0-46.0) Mean Corpuscular Volume 90.4 fL (80.0-100.0) Mean Corpuscular Hemoglobin 30.8 pg (28.0-32.0) Mean Corpuscular Hemoglobin Concent 34.0 g/dL (32.0-36.0) Red Cell Distribution Width 13.6 % (11.8-14.3) Platelet Count 252 10^3/uL (140-450) Mean Platelet Volume 9.4 fL (6.9-10.8) Neutrophils (%) (Auto) 71.4 % (37.0-80.0) Lymphocytes (%) (Auto) 20.7 % (10.0-50.0) Monocytes (%) (Auto) 5.5 % (0.0-12.0) Eosinophils (%) (Auto) 1.9 % (0.0-7.0) Basophils (%) (Auto) 0.5 % (0.0-2.0) Neutrophils # (Auto) 4.6 10 ^3/uL (1.6-8.6) Lymphocytes # (Auto) 1.3 10 ^3/uL (0.4-5.4) Monocytes # (Auto) 0.4 10 ^3/uL (0-1.3) Eosinophils # (Auto) 0.1 10 ^3/uL (0-0.8) Basophils # (Auto) 0 10 ^3/uL (0-0.2) Nucleated Red Blood Cells 0.0 % Test 06/17/25 00:12 06/16/25 04:42 06/15/25 13:24 06/15/25 10:49 Vancomycin Level Trough 11.5 ug/mL (5-10) Prothrombin Time 11.7 sec (9.3-11.8) Prothrombin Time INR 1.12 (0.9-1.15) Activated Partial Thromboplast Time 30.4 SEC (24.5-34.5) Urine Color Light-yellow (Yellow) Urine Clarity Clear (Clear) Urine pH 6.0 (5.0-9.0) Urine Specific Trout 1.015 (1.001-1.035) Urine Protein Negative (Negative) Urine Ketones 1+ (Negative) Urine Blood Negative /uL (Negative) Urine Nitrite Negative (Negative) Urine Bilirubin Negative (Negative) Urine Urobilinogen Normal mg/dL (Negative) Urine Leukocyte Esterase 1+ /uL (Negative) Urine RBC 1 /hpf (0 - 4) Urine Microscopic WBC 11 /HPF (0-5) Urine Squamous Epithelial Cells Few /hpf (<5) Urine Bacteria None seen /hpf (None Seen) Urine Glucose 1+ mg/dL (Normal) Total Bilirubin 0.8 mg/dL (0.2-1.0) Aspartate Amino Transferase (AST) 19 U/L (13-40) Alanine Aminotransferase (ALT) 19 U/L (7-40) Alkaline Phosphatase 108 U/L (46-116) Total Protein 7.2 g/dL (5.7-8.2) Albumin 4.1 g/dL (3.2-4.8) Free Thyroxine (T4) Calculated 1.58 ng/dL (0.89-1.76) Total Triiodothyronine (TT3) 1.20 ng/mL (0.60-1.81) Test 06/15/25 05:00 06/14/25 22:57 06/14/25 21:39 Influenza Type A Antigen Negative (Negative) Influenza Type B Antigen Negative (Negative) SARS-CoV-2 Antigen (Rapid) Negative (NEGATIVE) Troponin I High Sensitivity 6 ng/L (</=34) D-Dimer, Quantitative 0.59 mg/L FEU (0.0-0.49) B-Type Natriuretic Peptide 175.01 pg/mL (0-100) Vitamin B12 Level 398 pg/mL (211-911) Vitamin D 25-Hydroxy 43.9 ng/mL (30.0-100) Thyroid Stimulating Hormone (TSH) 0.34 uIU/mL (0.55-4.78) Other Laboratory Tests 06/18/25 04:39 06/17/25 04:35 Brief Hx & Hospital Course: Patient is a 64-year-old female with previous history of tra-nltcicd-mwsqxahtw uncontrolled type 2 diabetes mellitus, hypertension, AFib on Eliquis, mitral valve repair surgery with metal implant attached, diastolic heart failure presented to the ER with the complaints of shortness of breath and central chest pain, feeling of heavy sensation, increases with deep breathing since 2 weeks.. She reports having dry cough since 3 days, nonproductive and no hemoptysis. Patient also states she is feeling tired with generalized body weakness. She also reports having mild shortness of breaths, no relation with posture and wheezing. Patient was recently admitted in the hospital in April with pneumonia. In last admission patient was given ceftriaxone or doxycycline and patient reports having worsening of shortness of breath after taking that medication. Past surgical history: Mitral valve repair with metal implant, 4 sections, total abdominal hysterectomy, tonsillectomy Social history: Denies alcohol,smoking,drugs Home medications: Apixaban, atenolol, atorvastatin, Basaglar insulin, Dilt XR, furosemide, [place], ibuprofen, Jardiance, Mounjaro, KCl, nitroglycerin Family history: Noncontributory PCP: Dr. Farzana Calvo Rack Carrier: Dr. Villagomez Brief hospital course: Patient came with acute respiratory distress. Patient had pneumonia or parapneumonic effusion, bilateral pleural effusions we ruled out PE CT angio was negative. Chest ultrasound showed zcyr-sg-sopjnwje right pleural effusion and trace left pleural effusion. chest x-ray showed Bilateral patchy opacities with pleural effusions. IV levofloxacin 500 mg was started, IV vancomycin was started for Recent hospitalization. albuterol med neb was given, acetaminophen for pleuritic chest pain, COVID and flu were negative. Patient has history of diastolic heart failure with preserved ejection fraction EF of 65%, chest pain , we ruled out ACS. patient has history of AFib, hypertensive disease, history of mitral valve repair with metal implant. EKG showed no acute ischemic changes. Atenolol and diltiazem were started home medication of Jardiance was held. Patient had type 2 diabetes mellitus with hemoglobin A1c of 8.4 insulin Lantus 15 was started, mild insulin sliding scale was given. Patient was on GI prophylaxis with Protonix . patient underwent right thoracentesis with 85 mL output. Patient was weaned off oxygen and was on room air at discharge. Patient has no symptoms except for soreness in the back. repeat chest x-ray showed no pneumothorax. Patient is stable for Discharge. Patient understood her discharge plan and understood to follow-up with PCP, discharge Clinic in 1 week. General: Patient alert and oriented in person, place and time. Patient following commands. HEENT: Normocephalic, atraumatic, moist mucous membranes Respiratory/pulmonary: Normal lungs sounds on auscultation Cardiovascular: Normal heart sounds S1 and S2 with no associated murmurs Abdomen: Abdomen nondistended, there is no pain to palpation in any of the abdominal quadrants, no palpable masses. Extremities: There is no peripheral edema present at the lower extremities. Peripheral Pulses: 3+ Radial (R). 3+ Radial (L). 3+ Dorsalis pedis (R). 3+ Dorsalis pedis(L) Skin: No rashes or pruritus, there is no sacral edema present at this time. Neurological: Intact cranial nerves with no focal neurologic deficits Patient is to take Levofloxacin 750 mg p.o. daily Doxycycline 100 mg p.o. b.i.d. Operations or Procedures ORDERING PHYSICIAN: CHRIS MESSINA PROCEDURE(s): CXR1 - CHEST XRAY 1 VIEW REASON: sob ORDER NUMBER(s): [id number], ACCESSION NUMBER(s): [id number] CHEST RADIOGRAPH Indication: sob Technique: 1 view Comparison: XY CHEST XRAY 1 VIEW on DOS: 05/13/25, XY CHEST XRAY 1 VIEW on DOS: 05/02/25, XY CHEST PORTABLE on DOS: 01/12/25, CHEST PORTABLE on DOS: 03/26/22, CXRP on DOS: 03/26/22 FINDINGS: Lines and Tubes: None. Lungs/Pleura: Spstb-li-mhmtqktb, llhoz-gilorop-qvhu-left pleural effusions with adjacent airspace disease. Diffuse interstitial prominence. Cardiomediastinum: Unchanged, normal heart size. Mitral clip. Other: No acute osseous abnormality. IMPRESSION: 1. Development of fwqbp-elacwfg-arqq-left pleural effusions with adjacent airspace disease, may be related to heart failure or multifocal infection. ATED BY: EMMETT CHRISTENSEN MD DICTATED DATE/TIME: 06/14/252212 SIGNED BY: EMMETT CHRISTENSEN MD SIGNED DATE/TIME: 06/14/252212 ORDERING PHYSICIAN: RED FERRERA PROCEDURE(s): BLDVT - BiLat Lower DVT REASON: Rule out DVT ORDER NUMBER(s): [id number], ACCESSION NUMBER(s): [id number] Bilateral lower extremity venous duplex Clinical History: Rule out DVT Comparison: None Technique: Duplex Doppler evaluation of the deep venous systems of both lower extremities from the common femoral veins to the popliteal veins including color Doppler and spectral/pulsed waveform analysis was performed. Findings: RIGHT SIDE: The common femoral vein demonstrates appropriate compressibility and waveform variability. There is compressibility/patency of the great saphenous vein at the proximal thigh. The femoral vein demonstrates appropriate compressibility and waveform variability. The deep femoral vein demonstrates appropriate compressibility and waveform variability. The popliteal vein demonstrates appropriate compressibility and waveform variability. There is normal compressibility at the tibioperoneal trunk. LEFT SIDE: The common femoral vein demonstrates appropriate compressibility and waveform variability. There is compressibility/patency of the great saphenous vein at the proximal thigh. The femoral vein demonstrates appropriate compressibility and waveform variability. The deep femoral vein demonstrates appropriate compressibility and waveform variability. The popliteal vein demonstrates appropriate compressibility and waveform variability. There is normal compressibility at the tibioperoneal trunk. Impression: 1. No right or left femoropopliteal venous thrombosis. ATED BY: EMMETT CHRISTENSEN MD DICTATED DATE/TIME: 06/15/25 0021 ORDERING PHYSICIAN: MARIBELL PETERS PROCEDURE(s): CTACH - CT ANGIO CHEST CONTRAST REASON: r/o pE ORDER NUMBER(s): [id number], ACCESSION NUMBER(s): [id number] EXAM: CT CT ANGIO CHEST CONTRAST HISTORY: r/o pE TECHNIQUE: CT angiogram was performed. CT scans at this facility use dose modulation, iterative reconstruction, and/or weight based dosing when appropriate to reduce radiation dose to as low as reasonably achievable. Coronal and sagittal reformations and maximum intensity projection images were created from the transaxial source data by the eeg technologist and workstation, as well as 3-D volume rendered images with MIPs. COMPARISON: CT CT ANGIO CHEST CONTRAST on DOS: 05/11/25 FINDINGS: [LOWER NECK]: Left thyroid lobe nodule measuring 2.5 cm. Consider nonemergent ultrasound of the thyroid [LYMPH NODES/MEDIASTINUM]: Small subcentimeter likely reactive aortopulmonary window and right hilar lymph nodes [CARDIOVASCULAR]: Normal cardiac size. No pericardial effusion. No aneurysmal dilatation of the great vessels. Coronary artery calcifications. [PULMONARY ARTERIES]: No pulmonary arterial filling defect. Normal caliber of the main pulmonary artery. No evidence of elevated right heart pressures. [UPPER ABDOMEN]: Unremarkable. [MUSCULOSKELETAL]: No acute fracture or aggressive focal osseous lesion. Multilevel degenerative change of the visualized spine. [CHEST WALL]: Unremarkable. [LUNG PARENCHYMA/PLEURAL SPACE]: Medium to large right-sided pleural effusion. Peripheral interstitial and alveolar edema with diffuse distribution. Atelectasis in bilateral lung bases. Small left-sided pleural effusion. Overall appearance of volume overload correlate for congestive heart failure IMPRESSION: 1. No CTA evidence of an acute pulmonary embolism. 2. Medium to large right-sided pleural effusion with small left-sided pleural effusion. 3. Peripheral interstitial and alveolar edema with diffuse distribution. 4. Overall appearance of volume overload correlate for congestive heart failure. ATED BY: JEFFERY CAMARA MD DICTATED DATE/TIME: 06/15/25 1717 ORDERING PHYSICIAN: ROSY PEREZ MD PROCEDURE(s): CHSTU - CHEST ULTRASOUND REASON: fluid check, possible thora ORDER NUMBER(s): [id number], ACCESSION NUMBER(s): [id number] Exam: US CHEST ULTRASOUND Clinical History: fluid check, possible thora Comparison: CT CT ANGIO CHEST CONTRAST on DOS: 06/15/25, XY CHEST XRAY 1 VIEW on DOS: 06/14/25, XY CHEST XRAY 1 VIEW on DOS: 05/13/25, CT CT ANGIO CHEST CONTRAST on DOS: 05/11/25, XY CHEST TWO VIEWS ROUTINE on DOS: 05/09/25 Technique: Targeted sonographic evaluation of the soft tissues of the bilateral chest was obtained utilizing grayscale and color Doppler imaging. Findings/Impression: Utdb-dl-wkrkwntl right pleural effusion. Trace left pleural effusion. ATED BY: EMMETT CHRISTENSEN MD DICTATED DATE/TIME: 06/16/25 0838 ORDERING PHYSICIAN: MARIBELL PETERS PROCEDURE(s): THORA - THORACENTESIS REASON: PLEURAL EFFUSION ORDER NUMBER(s): [id number], ACCESSION NUMBER(s): [id number] PROCEDURE: ULTRASOUND GUIDED THORACENTESIS USING TEMPORARY CATHETER HISTORY: PLEURAL EFFUSION DOCUMENTATION: Informed consent was obtained and a procedural time out was performed. FINDINGS: The risks and benefits of the procedure including bleeding, infection and pneumothorax were explained to the patient and written informed consent obtained. Optimal site for puncture long the right posterior chest wall was determined using real-time ultrasound and the region sterilized. Local anesthesia was instilled. A 5 Nepali catheter was then advanced into the pleural space and 0.85 liters of clear tinged fluid was removed. The patient tolerated the procedure well. IMPRESSION: 1. Successful right thoracentesis with removal of 0.85 L of clear yellow fluid. ATED BY: ROSY PEREZ MD DICTATED DATE/TIME: 06/17/25 1056 Condition at Discharge: Stable Final Diagnosis/Problems List Acute hypoxic respiratory failure Pneumonia due to Gram-positive or Gram-negative organism Ruled Out PE Bilateral pleural effusion Diastolic heart failure with preserved ejection fraction (EF 65%) Chest pain ruled out ACS h/o AFib Hypertensive heart disease History of mitral valve repair with metal implant Uncontrolled type 2 diabetes mellitus (hemoglobin A1c 8.4) Hypokalemia Discharge Disposition: Home Discharge Instruct/Medications Diet: Consistent carbohydrate Activity: No Restrictions, As Tolerated Follow Up/Referral: follow up with pcp , discharge clinic in 1 week Medications: as per emr Scheduled Acetaminophen (Tylenol), 325 MG PO TID Albuterol Sulfate (Albuterol Sulfate Hfa), 1 PUFF PO Q4H, (Reported) Apixaban Base (Eliquis), 5 MG PO BID Atenolol (Atenolol), 1 TAB PO DAILY Atorvastatin Calcium (Atorvastatin Calcium), 1 TAB PO HS Diltiazem Hcl (Dilt-Xr), 1 CAP PO DAILY Doxycycline Monohydrate (Doxycycline Monohydrate), 1 CAP PO BID Empagliflozin (Jardiance), 10 MG PO DAILY Empagliflozin (Jardiance), 1 TAB PO QAM, (Reported) Furosemide (Furosemide), 40 MG PO DAILY Levofloxacin Hemihydrate (Levofloxacin), 1 TAB PO DAILY Magnesium Oxide (Magnesium Oxide), 1 TAB PO QHSP, (Reported) Nitroglycerin (Ntrostat Sublingual), 0.4 MG SL PRN, (Reported) Omeprazole (Omeprazole Dr), 1 CAP PO DAILY, (Reported) Potassium Chloride (Potassium Chloride Cr), 10 MEQ PO DAILY Tirzepatide (Mounjaro), 5 MG SC QWEEKLY, (Reported) Discharge Statement: "Patient was advised to return to the ER or call 911 if any headaches, dizziness, shortness of breath, chest pain, abdominal pain, bleeding, fevers, or worsening of medical condition. Patient was counseled about treatment plan, medications, possible side effects, patientverbalized understanding. All questions were answered to the best of my ability. This discharge took greater then 30 minutes in planning, reviewing documentation, counseling the patient, and discussing with other team members." ASSESSMENT ASSESSMENT Assessment Acute respiratory failure Date of Service: Jun 18, 2025 Billing Provider: ADRIENNE OCONNELL MD Common Visit Codes: 45646-EAD/OBS DISCH DAY >30min MARIBELL PETERS RESIDENT Jun 18, 2025 16:14 ADRIENNE OCONNELL MD Jun 19, 2025 13:26
== END 2025-06-18 18:18 | disposition home or self-care (01) | DRG 133 ==
LOC: ER 20:41 → OVERFLOW 22:41 → WEST WING 06-15 17:27
PROVIDERS: ADMIT Internal Medicine; ATTEND Internal Medicine
PROC: 0W993ZZ Drainage of Right Pleural Cavity, Percutaneous Approach (ICD-10-PCS; principal; 2025-06-17)
DX: J96.01 Acute respiratory failure with hypoxia (principal); J15.69 Pneumonia due to other Gram-negative bacteria; I50.33 Acute on chronic diastolic (congestive) heart failure; J15.9 Unspecified bacterial pneumonia; I11.0 Hypertensive heart disease with heart failure; J91.8 Pleural effusion in other conditions classified elsewhere; E11.9 Type 2 diabetes mellitus without complications; I48.91 Unspecified atrial fibrillation; Z20.822 Contact with and (suspected) exposure to COVID-19; E78.5 Hyperlipidemia, unspecified; I25.10 Atherosclerotic heart disease of native coronary artery without angina pectoris; E87.6 Hypokalemia; Z90.710 Acquired absence of both cervix and uterus; Z82.49 Family history of ischemic heart disease and other diseases of the circulatory system; Z79.4 Long term (current) use of insulin
CPT/HCPCS: 32555; 36415; 71045; 71275; 76604; 76942; 80048; 80053; 80202; 81001; 82306; 82565; 82607; 82962; 83735; 83880; 83986; 84439; 84443; 84480; 84484; 85025; 85379; 85610; 85730; 87070; 87081; 87205; 87426; 87804; 88341; 89051; 93005; 93970; G0378; J1815; J1956